=== PATIENT | female | born 1970 | race Caucasian/White ===

== ENCOUNTER 2017-09-06 09:34 | Emergency (ER) | payer BC ==
[~2017-09-06] VITALS: Ht 157.5 cm; Wt 75.0 kg
[~2017-09-06 09:34] MED LIST: BISOPROLOL/HCTZ PO; DTRSR2 PO; ESCI10TA17 PO; LANS15CA6 PO; SYN25 PO
[2017-09-06 09:53] VITALS: O2SAT 95; Ht 157.5 cm; Wt 75.0 kg
[2017-09-06] MEDS ORDERED: SODIUM CHLORIDE 0.9% 1000ML 500 ML IV STA (10:34)
[2017-09-06] MEDS ORDERED: ZC25 PO (10:37)
[2017-09-06] MEDS ORDERED: ASPI81TA28 PO (10:37)
[2017-09-06] MEDS ORDERED: DTRSR/2 PO (10:37)
[2017-09-06] MEDS ORDERED: LEVO25TA5 PO (10:37)
--- NOTE | 2017-09-06 11:07 | DIAGNOSTIC IMAGING REPORT ---
CHEST ONE VIEW PORTABLE CLINICAL HISTORY: 47 years-old Female presenting with CHEST PAIN. TECHNIQUE: Portable upright AP view of the chest was obtained. COMPARISON: 08/19/2011. FINDINGS: Atherosclerosis of aortic arch. Cardiac silhouette enlarged, slightly increased from prior. Enlargement of the main pulmonary artery, unchanged. Mild prominence of pulmonary vasculature, slightly increased from prior. Lungs and pleural spaces clear. Osseous structures normal. Upper abdomen normal. IMPRESSION: 1. Apparent mild cardiomegaly, although this could be due to portable AP technique. 2. Prominence of the main pulmonary artery could suggest elevated pulmonary arterial pressures. This appearance is not significant changed from prior exam. 3. No focal infiltrate or pulmonary edema. Electronically signed by: Amando Mcclendon M.D. 09/06/2017 11:06 AM Dictated Date/Time: 09/06/2017 11:05 AM
--- NOTE | 2017-09-06 11:24 | EMERGENCY ROOM VISIT NOTE ---
History Report prepared by Fletcher: Chelo Morataya Under the Supervision of: Dr. Glynn Escalante M.D. First contact with patient: 10:26 Chief Complaint: CARDIAC ASSESSMENT Stated Complaint: ALMOST PAST OUT, DIZZY, HEART POUNDING Nursing Triage Summary: pt ambulatroy to room a09b. 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 pt reports today while at work she had sudden onset of dizziness and felt like she was going to pass out and fast heart rate. denies any loc. pt reports at present continued dizziness that has improved and "i just don't feel right." History of Present Illness The patient is a 47 year old female who presents to the Emergency Room for a cardiac assessment. She has a past history of rheumatic heart disease and follows with Dr. Caicedo of cardiology. This morning the patient woke up and was feeling well. She went to work at [employer] and suddenly began to feel lightheaded and dizzy. She felt like she was going to pass out but denies any LOC. Her heart was pounding but she cannot remember if it felt regular or irregular. She sat down and her symptoms improved. 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 The patient states that she is feeling better now, but still feels a little dizzy and "off." She denies chest pain, shortness of breath, nausea, vomiting, and diarrhea. She denies any recent changes to her medications. She also denies chance of . 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 A total of 10 systems reviewed and were otherwise negative. Past Medical & Surgical Medical Problems: (1) Menorrhagia (2) Rheumatic heart disease Family History No pertinent history stated. Social History Smoking Status: Current Every Day Smoker Housing Status: lives with family Occupation Status: employed Current/Historical Medications Scheduled Aspirin (Aspirin Ec), 81 MG PO DAILY Bisoprolol Fumarate (Bisoprolol Fumarate/Sherman 2.5-6.25 mg), 1 TAB PO DAILY Escitalopram (Lexapro), 20 MG PO DAILY Lansoprazole (Prevacid), 30 MG PO DAILY Levothyroxine Sodium (Levothyroxine Sodium), 1 TAB PO DAILY Tolterodine Tartrate (Detrol LA), 1 CAP PO DAILY Allergies Coded Allergies: No Known Allergies (Unverified , 09/06/17) Physical Exam Vital Signs Date Time Temp Pulse Resp B/P (MAP) Pulse Ox O2 Delivery O2 Flow Rate FiO2 09/06/17 10:57 87 18 129/91 95 Room Air 09/06/17 09:58 97 09/06/17 09:53 37.1 95 18 158/99 99 Room Air 09/06/17 09:53 95 Room Air Physical Exam GENERAL: Patient is in no acute distress. HEENT: No acute trauma, normocephalic atraumatic, mucous membranes moist, no nasal congestion, no scleral icterus. NECK: No stridor, no adenopathy, no meningismus, trachea is midline. LUNGS: Clear to auscultation bilaterally, no wheeze, no rhonchi, breath sounds equal. HEART: Without murmurs gallops or rubs, regular rate and rhythm. ABDOMEN: Soft, nontender, bowel sounds positive, no hernias, no peritonitis. EXTREMITIES: No cyanosis or edema, full range of motion of all the joints without pain or difficulty, no signs for acute trauma. NEUROLOGIC: Oriented x 3, no acute motor or sensory deficits, no focal weakness. SKIN: No rash, no jaundice, no diaphoresis. Medical Decision & Procedures ER Provider Diagnostic Interpretation: Radiology results as stated below per my review and radiologist interpretation: CHEST ONE VIEW PORTABLE CLINICAL HISTORY: 47 years-old Female presenting with CHEST PAIN. TECHNIQUE: Portable upright AP view of the chest was obtained. COMPARISON: 08/19/2011. FINDINGS: Atherosclerosis of aortic arch. Cardiac silhouette enlarged, slightly increased from prior. Enlargement of the main pulmonary artery, unchanged. Mild prominence of pulmonary vasculature, slightly increased from prior. Lungs and pleural spaces clear. Osseous structures normal. Upper abdomen normal. IMPRESSION: 1. Apparent mild cardiomegaly, although this could be due to portable AP technique. 2. Prominence of the main pulmonary artery could suggest elevated pulmonary arterial pressures. This appearance is not significant changed from prior exam. 3. No focal infiltrate or pulmonary edema. Electronically signed by: Amando Mcclendon M.D. 09/06/2017 11:06 AM Dictated Date/Time: 09/06/2017 11:05 AM Laboratory Results 09/06/17 11:09 09/06/17 11:09 Test 09/06/17 11:09 09/06/17 11:14 Red Blood Count 4.37 M/uL (4.2-5.4) Mean Corpuscular Volume 94.7 fL (80-100) Mean Corpuscular Hemoglobin 32.3 pg (25-34) Mean Corpuscular Hemoglobin Concent 34.1 g/dl (32-36) RDW Standard Deviation 47.1 fL (36.4-46.3) RDW Coefficient of Variation 13.7 % (11.5-14.5) Mean Platelet Volume 9.0 fL (7.4-10.4) Anion Gap 4.0 mmol/L (3-11) Est Creatinine Clear Calc Drug Dose 105.2 ml/min Estimated GFR () 123.6 Estimated GFR (Non- 106.6 BUN/Creatinine Ratio 16.8 (10-20) Calcium Level 9.3 mg/dl (8.5-10.1) Magnesium Level 2.3 mg/dl (1.8-2.4) Total Bilirubin 0.3 mg/dl (0.2-1) Aspartate Amino Transf (AST/SGOT) 21 U/L (15-37) Alanine Aminotransferase (ALT/SGPT) 19 U/L (12-78) Alkaline Phosphatase 48 U/L (45-117) Total Protein 7.9 gm/dl (6.4-8.2) Albumin 4.0 gm/dl (3.4-5.0) Globulin 3.9 gm/dl (2.5-4.0) Albumin/Globulin Ratio 1.0 (0.9-2) Thyroid Stimulating Hormone (TSH) 2.830 uIu/ml (0.300-4.500) Human Chorionic Gonadotropin, Qual NEG (NEG) Bedside Troponin I < 0.030 ng/ml (0-0.045) Laboratory results reviewed by me. Medications Administered Medications (Trade) Dose Ordered Sig/Thad Route Start Time Stop Time Status Last Admin Dose Admin Sodium Chloride 500 ml @ 999 mls/hr Q31M STAT IV 09/06/17 10:34 09/06/17 11:04 DC 09/06/17 10:58 999 MLS/HR ECG Indication: palpitations Rate (beats per minute): 93 Rhythm: normal sinus Findings: no acute ischemic change, no ectopy, other (old anterior septal infarct) ED Course 1026: The patient was evaluated in room A9B. A complete history and physical exam was performed. 1034: NSS 500 ml @ 999 mls/hr IV 1145: I spoke with Dr. Jordan of cardiology. We discussed the patient's case. He recommended discharge and outpatient follow-up. 1247: I reassessed the patient at this time. She is feeling better and resting comfortably. I discussed the results and treatment plan with the patient. I answered all pertaining questions that she had. She expressed understanding and verbalized agreement. The patient will be discharged home. Medical Decision Differential diagnoses includes dysrhythmia, viral illness, UTI, electrolyte imbalance, anemia, IN. There is no leukocytosis or concerning anemia. No significant electrolyte abnormality, kidney failure or hepatitis. The patient appears to be in a euthyroid state. EKG shows a normal sinus rhythm with some old changes, no acute ischemic change, no dysrhythmia. Cardiac enzyme testing 1 is not consistent with acute cardiac injury. Chest film does not show mediastinal widening, pneumonia or pneumothorax, a mild cardiomegaly was seen. The patient received IV saline, she has done well, no dysrhythmias noted on the monitor. I did speak with cardiology. The patient is being discharged with outpatient follow-up and possibly Holter monitor testing. She can return here for worsening symptoms. She was reassured. The cause for the presentation is not clear. Medication Reconcilliation Current Medication List: was personally reviewed by me Blood Pressure Screening Patient's blood pressure: Elevated blood pressure Blood pressure disposition: Elevated BP felt to be situational Consults Time Called: 1141 Consulting Physician: Dr. Jordan Returned Call: [address] Jordan of cardiology. We discussed the patient's case. He recommended discharge and outpatient follow-up. Impression Primary Impression: Near syncope Scribe Attestation The scribe's documentation has been prepared under my direction and personally reviewed by me in its entirety. I confirm that the note above accurately reflects all work, treatment, procedures, and medical decision making performed by me. Departure Information Dispostion Home / Self-Care Referrals Johanna Cardoza D.O. (PCP) Forms IMPORTANT VISIT INFORMATION Patient Instructions My [facility] Additional Instructions follow with cardiology--call for an appt rest and stay hydrated testing today was all ok return if worsening
[2017-09-06 11:36] LABS: HEMATOCRIT 41.4 % (37-47); MEAN CELL VOLUME 94.7 fL (80-100); MEAN CORPUSCULAR HEMOGLOBIN 32.3 pg (25-34); MEAN CORPUSCULAR HGB CONC 34.1 g/dl (32-36); PLATELET COUNT 247 K/uL (130-400); RED BLOOD COUNT 4.37 M/uL (4.2-5.4); WHITE BLOOD COUNT 7.26 K/uL (4.8-10.8)
[2017-09-06 11:59] LABS: PREG INTERNAL NEGATIVE QC NEG CLEAR BACKGROUND; PREG INTERNAL POSITIVE QC POS CONTROL LINE
[2017-09-06 12:18] LABS: BUN/CREATININE RATIO 16.8 (10-20); CALCIUM 9.3 mg/dl (8.5-10.1); CREATININE 0.62 mg/dl (0.60-1.20); MAGNESIUM 2.3 mg/dl (1.8-2.4)
[2017-09-06 12:28] LABS: THYROID STIMULATING HORMONE 2.83 uIu/ml (0.300-4.500)
[2017-09-06 13:46] VITALS: BP 139/83; PULSE 80; TEMP 37.1; O2SAT 97
== END 2017-09-06 13:47 | disposition home or self-care (01) ==
LOC: C.EDB 09:36 → C.EDA 13:47
DX: R55 Syncope and collapse (principal); I09.9 Rheumatic heart disease, unspecified; F17.210 Nicotine dependence, cigarettes, uncomplicated; Z79.82 Long term (current) use of aspirin; Z79.899 Other long term (current) drug therapy

== ENCOUNTER 2017-12-16 19:42 | Inpatient (IN) | payer BC ==
[~2017-12-16] VITALS: Ht 157.5 cm; Wt 81.0 kg
[~2017-12-16 19:42] MED LIST changes: +ASPI81TA28 PO; -BISOPROLOL/HCTZ PO; +DTRSR/2 PO; -DTRSR2 PO; +LEVO25TA5 PO; -SYN25 PO; +ZC25 PO
[2017-12-16 21:07] LABS: BASO % 0.3 %; BASO ABS # 0.04 K/uL (0-0.2); EOS % 0.9 %; EOS ABS # 0.12 K/uL (0-0.5); HEMATOCRIT 42.2 % (37-47); IG# 0.04 K/uL (0.00-0.02); LYMPH % 21.9 %; LYMPH ABS # 2.87 K/uL (1.2-3.4); MEAN CELL VOLUME 96.6 fL (80-100); MEAN CORPUSCULAR HGB CONC 33.2 g/dl (32-36); MEAN PLATELET VOLUME 9.3 fL (7.4-10.4); MONO % 8.3 %; MONO ABS # 1.08 K/uL (0.11-0.59); NEUT % 68.3 %; NEUT ABS # 8.93 K/uL (1.4-6.5); PLATELET COUNT 265 K/uL (130-400); RED CELL DISTRIBUTION WIDTH CV 14.4 % (11.5-14.5); RED CELL DISTRIBUTION WIDTH SD 50.9 fL (36.4-46.3); WHITE BLOOD COUNT 13.08 K/uL (4.8-10.8)
[2017-12-16 21:26] LABS: ALBUMIN 3.4 gm/dl (3.4-5.0); CALCIUM 8.6 mg/dl (8.5-10.1); CREATININE 0.72 mg/dl (0.60-1.20)
[2017-12-16 21:29] LABS: TOTAL PROTEIN 6.8 gm/dl (6.4-8.2)
[2017-12-16] MEDS ORDERED: ACETAMINOPHEN 500 MG TAB PO STA (21:42)
--- NOTE | 2017-12-16 21:54 | DIAGNOSTIC IMAGING REPORT ---
ULTRASOUND RIGHT UPPER QUADRANT ABDOMEN CLINICAL HISTORY: Right upper quadrant abdominal pain. COMPARISON STUDY: No priors. TECHNIQUE: Real-time, grayscale, and color flow sonography of the right upper quadrant of the abdomen was performed. Images are reviewed in the transverse and longitudinal planes. FINDINGS: Liver: The liver is mildly enlarged measuring 18.6 cm in length. Hepatic echotexture is slightly heterogeneous. There is no intrahepatic biliary ductal dilatation. The main portal vein is patent. Gallbladder: The gallbladder wall is thickened and edematous, measuring up to 7 mm. No shadowing gallstones are identified. No pericholecystic fluid is seen. A sonographic Neff's sign is reportedly present. The common bile duct measures up to 0.4 cm in diameter. Pancreas: Visualized portions of the pancreatic head and body are normal in appearance. Right kidney: Survey images of the right kidney demonstrate normal size and echotexture. There is no hydronephrosis. Ascites: None. IMPRESSION: 1. The gallbladder wall is markedly thickened and edematous. A sonographic Neff's sign is reportedly present. No shadowing gallstones are identified. The appearance is concerning for acalculus cholecystitis. Surgical consultation is advised. If further assessment is desired a nuclear hepatobiliary scan would be appropriate. 2. There is no intra or extrahepatic biliary ductal dilatation. 3. Mild hepatomegaly. Electronically signed by: Glynn Feliz M.D. 12/16/2017 9:53 PM Dictated Date/Time: 12/16/2017 9:50 PM
[2017-12-16] MEDS ORDERED: ONDANSETRON INJ 2 MG/ML 2 ML VIAL IV STA (21:57)
[2017-12-16] MEDS ORDERED: MoRPHine SULFATE 4 MG/ML 1 ML CARP\\VIAL IV STA (21:57)
[2017-12-16] MEDS ORDERED: PIPERACILLIN/TAZOBACTAM 3.375 GM/100ML D5W IV STA (21:57)
[2017-12-16] MEDS ORDERED: ONDANSETRON INJ 2 MG/ML 2 ML VIAL IV PRN (23:15)
[2017-12-16] MEDS ORDERED: HYDROCODONE/ACETAMOPHEN 5/325MG TAB PO PRN ×2 (23:15)
[2017-12-16] MEDS ORDERED: HYDROmorphone INJ 0.5 MG/0.5 ML SYR IV PRN (23:15)
[2017-12-16] MEDS ORDERED: ACETAMINOPHEN 325 MG TAB PO PRN (23:15)
[2017-12-16] MEDS ORDERED: HYDROmorphone INJ 1 MG/ML SYR IV PRN (23:15)
--- NOTE | 2017-12-16 23:25 | Medical Consult ---
Consultation Date of Consultation: Dec 16, 2017. Attending Physician: Reason for Consultation: acalculus cholecystitis History of Present Illness patient is a 47F who presents to the ED with RUQ pain associated with meals that began on Monday. States her pain has gotten progressively worse since onset and she finally decided to come to the ED tonight. States it typically comes on after she eats fatty foods. Reports she had [employer] today around 3pm and developed more severe symptoms 1-2 hours after that meal. Denies symptoms like this in the past. Denies FHx of gallbladder disease. Denies any vomiting but states she has felt mildly nauseous periodically since the onset of her pain. Denies fever/chills/recent illness. Reports decrease urination but states she has not been drinking a whole lot since she started having pain. Denies any urinary symptoms. Her last BM was this morning. She denies any trouble moving her bowels. Denies any abdominal surgeries in the past. She does normally take aspirin 81mg daily but has not taken it in the past few days due to her symptoms. Denies use of any other blood thinning or anticoagulant medications. PMHx significant for rheumatic heart disease. She follows regularly with Dr. Pastrana in cardiology and reports she last saw him in June. WBC 13.08. AST mildly elevated at 43. No N/V at this time. Still in some pain but greatly improved since receiving morphine in the ED. RUQ U/S revealed gallbladder wall is markedly thickened and edematous. A sonographic Neff's sign is reportedly present. No shadowing gallstones are identified. The appearance is concerning for acalculus cholecystitis. Past Medical/Surgical History Medical Problems: (1) Near syncope Status: Acute Social History Smoking Status: Current Every Day Smoker Housing Status: lives with family Occupation Status: employed Allergies Coded Allergies: Kiwi (Verified Allergy, Severe, TONGUE SWELLS, 12/16/17) Review of Systems Denies problems with anesthesia in the past. Constitutional: No fever, No chills Cardiovascular: No chest pain Abdomen: + pain (RUQ), + nausea (Mild, intermittent), No vomiting, No diarrhea , No constipation Genitourinary - Female: No dysuria Hematologic / Lymphatic: No abnormal bleeding/bruising, No clotting problems Physical Exam Date Time Temp Pulse Resp B/P (MAP) Pulse Ox O2 Delivery O2 Flow Rate FiO2 1/20/18 22:05 113 20 146/94 96 Room Air 12/16/17 19:44 36.6 116 20 138/90 98 Room Air General Appearance: WD/WN, no apparent distress Head: normocephalic, atraumatic Respiratory/Chest: normal breath sounds, no respiratory distress, no accessory muscle use Cardiovascular: regular rate, rhythm Abdomen/GI: normal bowel sounds, soft, no organomegaly, no pulsatile mass, + tenderness (RUQ) Neurologic/Psych: alert, normal mood/affect, oriented x 3 Skin: normal color, warm/dry Laboratory Results Last 24 Hours Test 12/16/17 20:30 12/16/17 20:45 Urine Color DK YELLOW Urine Appearance CLOUDY Urine pH 5.0 Urine Specific Nicholls 1.029 Urine Protein 1+ Urine Glucose (UA) NEG Urine Ketones TRACE Urine Occult Blood NEG Urine Nitrite NEG Urine Bilirubin NEG Urine Urobilinogen NEG Urine Leukocyte Esterase NEG Urine WBC (Auto) 1-5 /hpf Urine RBC (Auto) 0-4 /hpf Urine Hyaline Casts (Auto) 1-5 /lpf Urine Epithelial Cells (Auto) >30 /lpf Urine Bacteria (Auto) NEG Urine Test NEG White Blood Count 13.08 K/uL Red Blood Count 4.37 M/uL Hemoglobin 14.0 g/dL Hematocrit 42.2 % Mean Corpuscular Volume 96.6 fL Mean Corpuscular Hemoglobin 32.0 pg Mean Corpuscular Hemoglobin Concent 33.2 g/dl Platelet Count 265 K/uL Mean Platelet Volume 9.3 fL Neutrophils (%) (Auto) 68.3 % Lymphocytes (%) (Auto) 21.9 % Monocytes (%) (Auto) 8.3 % Eosinophils (%) (Auto) 0.9 % Basophils (%) (Auto) 0.3 % Neutrophils # (Auto) 8.93 K/uL Lymphocytes # (Auto) 2.87 K/uL Monocytes # (Auto) 1.08 K/uL Eosinophils # (Auto) 0.12 K/uL Basophils # (Auto) 0.04 K/uL RDW Standard Deviation 50.9 fL RDW Coefficient of Variation 14.4 % Immature Granulocyte % (Auto) 0.3 % Immature Granulocyte # (Auto) 0.04 K/uL Sodium Level 139 mmol/L Potassium Level 4.0 mmol/L Chloride Level 105 mmol/L Carbon Dioxide Level 21 mmol/L Anion Gap 13.0 mmol/L Blood Urea Nitrogen 15 mg/dl Creatinine 0.72 mg/dl Est Creatinine Clear Calc Drug Dose 93.3 ml/min Estimated GFR () 114.8 Estimated GFR (Non- 99.0 BUN/Creatinine Ratio 21.0 Random Glucose 109 mg/dl Calcium Level 8.6 mg/dl Total Bilirubin 0.6 mg/dl Direct Bilirubin 0.2 mg/dl Aspartate Amino Transf (AST/SGOT) 43 U/L Alanine Aminotransferase (ALT/SGPT) 47 U/L Alkaline Phosphatase 54 U/L Total Protein 6.8 gm/dl Albumin 3.4 gm/dl Lipase 172 U/L Assessment & Plan RUQ pain, acalculous cholecystitis via U/S Based on symptoms and imaging, pain most likely gallbladder in etiology. Will plan for laparoscopic cholecystectomy, possible intraoperative cholangiogram, possible open with Dr. Guerrero tomorrow. Risks, benefits and alternatives were discussed with the patient - all questions were answered. Admit Med/Surg, NPO after midnight, IV Fluids, IV Cefoxitin 2g q6h, IV pain medication PRN, IV Zofran for nausea, SCDs. Will consult cardiology for a pre-op clearance due to her history of rheumatic heart disease. OR notified. Findings discussed with Dr. Guerrero. Please contact with questions or concerns.
[2017-12-16 23:39] VITALS: Ht 157.5 cm; Wt 81.0 kg
[2017-12-17] VITALS (11 sets, daily range): BP systolic 109–142; BP diastolic 65–93; PULSE 79–104; TEMP 36.5–36.9; O2SAT 93–99
--- NOTE | 2017-12-17 00:50 | EMERGENCY ROOM VISIT NOTE ---
History Report prepared by Fletcher: Adryan Norman Under the Supervision of: Dr. Derrick Nava D.O. First contact with patient: 20:23 Chief Complaint: ABDOMINAL PAIN Stated Complaint: PAIN IN UPPER R ABDOMEN Nursing Triage Summary: pt reports 3 day hx of RUQ pain that radiates to back , denies urinary sx , reports nausea History of Present Illness The patient is a 47 year old female who presents to the Emergency Room with complaints of constant RUQ abdominal pain for two days. She states that she ate a cheeseburger and fries two days ago and the abdominal pain began two hours later. She notes the pain has not subsided and worsens when she eats or drinks. She currently rates her pain a 9/10 in severity. She also notes pain with breathing at her lower ribs. Her last bowel movement was normal. She notes a history of Hodgkin's disease when she was 26 years old. She notes rheumatic heart disease. She denies any history of HI. She denies any history of abdominal surgeries. She currently smokes. Patient denies diabetes, hypertension , hyperlipidemia, CAD, and family history of sudden at a young age. Patient denies swelling of calves, recent trips, history of immobilization or recent surgery, prior history of DVT, hemoptysis, or control/estrogen use. Pt denies fevers, cough, runny nose, chest pain, nausea, vomiting, diarrhea, pain with urination, and melena. Source of History: patient Onset: two days Position: abdomen (RUQ) Symptom Intensity: 9/10 Timing: constant Modifying Factors (Worsening): eating, drinking Associated Symptoms: No fevers, No cough, No chest pain, No nausea, No vomiting, No diarrhea, No urinary symptoms (pain with urination) Note: She notes RUQ abdominal pain. She notes pain with breathing along rib line. She denies runny nose. Review of Systems See HPI for pertinent positives & negatives. A total of 10 systems reviewed and were otherwise negative. Past Medical & Surgical Medical Problems: (1) Acalculous cholecystitis (2) Menorrhagia (3) Rheumatic heart disease Family History No pertinent family history Social History Smoking Status: Current Every Day Smoker Smokeless Tobacco Use: No Drug Use: none Housing Status: lives with family Occupation Status: employed Current/Historical Medications Scheduled Aspirin (Aspirin Ec), 81 MG PO DAILY Bisoprolol Fumarate (Bisoprolol Fumarate/[place] 2.5-6.25 mg), 1 TAB PO DAILY Escitalopram (Lexapro), 20 MG PO DAILY Lansoprazole (Prevacid), 30 MG PO DAILY Levothyroxine Sodium (Levothyroxine Sodium), 25 MCG PO DAILY Tolterodine Tartrate (Detrol LA), 2 MG PO DAILY Allergies Coded Allergies: Kiwi (Verified Allergy, Severe, TONGUE SWELLS, 12/16/17) Physical Exam Vital Signs Date Time Temp Pulse Resp B/P (MAP) Pulse Ox O2 Delivery O2 Flow Rate FiO2 12/16/17 23:15 105 95 12/16/17 23:14 139/90 12/16/17 22:05 113 20 146/94 96 Room Air 12/16/17 19:44 36.6 116 20 138/90 98 Room Air Physical Exam GENERAL: Sitting up in bed, alert, well appearing, well nourished, no distress, non-toxic EYE EXAM: normal conjunctiva. OROPHARYNX: no exudate, no erythema, lips, buccal mucosa, and tongue normal and mucous membranes are moist NECK: supple, no nuchal rigidity, no adenopathy, non-tender LUNGS: Clear to auscultation. Normal chest wall mechanics HEART: no murmurs, S1 normal and S2 normal ABDOMEN: abdomen soft, tenderness in RUQ, normo-active bowel sounds, no masses, no rebound or guarding. BACK: Back is symmetrical on inspection and there is no deformity, no midline tenderness, no CVA tenderness. SKIN: no rashes and no bruising UPPER EXTREMITIES: upper extremities are grossly normal. LOWER EXTREMITIES: No pitting edema. NEURO EXAM: Normal sensorium, cranial nerves II-XII grossly intact, normal speech, no gross weakness of arms, no gross weakness of legs. Medical Decision & Procedures ER Provider Diagnostic Interpretation: Radiology results as stated below per my review and the radiologist's interpretation: ULTRASOUND RIGHT UPPER QUADRANT ABDOMEN CLINICAL HISTORY: Right upper quadrant abdominal pain. COMPARISON STUDY: No priors. TECHNIQUE: Real-time, grayscale, and color flow sonography of the right upper quadrant of the abdomen was performed. Images are reviewed in the transverse and longitudinal planes. FINDINGS: Liver: The liver is mildly enlarged measuring 18.6 cm in length. Hepatic echotexture is slightly heterogeneous. There is no intrahepatic biliary ductal dilatation. The main portal vein is patent. Gallbladder: The gallbladder wall is thickened and edematous, measuring up to 7 mm. No shadowing gallstones are identified. No pericholecystic fluid is seen. A sonographic Neff's sign is reportedly present. The common bile duct measures up to 0.4 cm in diameter. Pancreas: Visualized portions of the pancreatic head and body are normal in appearance. Right kidney: Survey images of the right kidney demonstrate normal size and echotexture. There is no hydronephrosis. Ascites: None. IMPRESSION: 1. The gallbladder wall is markedly thickened and edematous. A sonographic Neff's sign is reportedly present. No shadowing gallstones are identified. The appearance is concerning for acalculus cholecystitis. Surgical consultation is advised. If further assessment is desired a nuclear hepatobiliary scan would be appropriate. 2. There is no intra or extrahepatic biliary ductal dilatation. 3. Mild hepatomegaly. Electronically signed by: Glynn Feliz M.D. 12/16/2017 9:53 PM Dictated Date/Time: 12/16/2017 9:50 PM Laboratory Results 12/16/17 20:45 Red Blood Count 4.37, Mean Corpuscular Volume 96.6, Mean Corpuscular Hemoglobin 32.0, Mean Corpuscular Hemoglobin Concent 33.2, Mean Platelet Volume 9.3, Neutrophils (%) (Auto) 68.3, Lymphocytes (%) (Auto) 21.9, Monocytes (%) (Auto) 8.3, Eosinophils (%) (Auto) 0.9, Basophils (%) (Auto) 0.3, Neutrophils # (Auto) 8.93, Lymphocytes # (Auto) 2.87, Monocytes # (Auto) 1.08, Eosinophils # (Auto) 0.12, Basophils # (Auto) 0.04 12/16/17 20:45 Test 12/16/17 20:30 12/16/17 20:45 Urine Color DK YELLOW Urine Appearance CLOUDY (CLEAR) Urine pH 5.0 (4.5-7.5) Urine Specific Butler 1.029 (1.000-1.030) Urine Protein 1+ (NEG) Urine Glucose (UA) NEG (NEG) Urine Ketones TRACE (NEG) Urine Occult Blood NEG (NEG) Urine Nitrite NEG (NEG) Urine Bilirubin NEG (NEG) Urine Urobilinogen NEG (NEG) Urine Leukocyte Esterase NEG (NEG) Urine WBC (Auto) 1-5 /hpf (0-5) Urine RBC (Auto) 0-4 /hpf (0-4) Urine Hyaline Casts (Auto) 1-5 /lpf (0-5) Urine Epithelial Cells (Auto) >30 /lpf (0-5) Urine Bacteria (Auto) NEG (NEG) Urine Test NEG (NEG) White Blood Count 13.08 K/uL (4.8-10.8) Red Blood Count 4.37 M/uL (4.2-5.4) Hemoglobin 14.0 g/dL (12.0-16.0) Hematocrit 42.2 % (37-47) Mean Corpuscular Volume 96.6 fL (80-100) Mean Corpuscular Hemoglobin 32.0 pg (25-34) Mean Corpuscular Hemoglobin Concent 33.2 g/dl (32-36) Platelet Count 265 K/uL (130-400) Mean Platelet Volume 9.3 fL (7.4-10.4) Neutrophils (%) (Auto) 68.3 % Lymphocytes (%) (Auto) 21.9 % Monocytes (%) (Auto) 8.3 % Eosinophils (%) (Auto) 0.9 % Basophils (%) (Auto) 0.3 % Neutrophils # (Auto) 8.93 K/uL (1.4-6.5) Lymphocytes # (Auto) 2.87 K/uL (1.2-3.4) Monocytes # (Auto) 1.08 K/uL (0.11-0.59) Eosinophils # (Auto) 0.12 K/uL (0-0.5) Basophils # (Auto) 0.04 K/uL (0-0.2) RDW Standard Deviation 50.9 fL (36.4-46.3) RDW Coefficient of Variation 14.4 % (11.5-14.5) Immature Granulocyte % (Auto) 0.3 % Immature Granulocyte # (Auto) 0.04 K/uL (0.00-0.02) Anion Gap 13.0 mmol/L (3-11) Est Creatinine Clear Calc Drug Dose 93.3 ml/min Estimated GFR () 114.8 Estimated GFR (Non- 99.0 BUN/Creatinine Ratio 21.0 (10-20) Calcium Level 8.6 mg/dl (8.5-10.1) Total Bilirubin 0.6 mg/dl (0.2-1) Direct Bilirubin 0.2 mg/dl (0-0.2) Aspartate Amino Transf (AST/SGOT) 43 U/L (15-37) Alanine Aminotransferase (ALT/SGPT) 47 U/L (12-78) Alkaline Phosphatase 54 U/L (45-117) Total Protein 6.8 gm/dl (6.4-8.2) Albumin 3.4 gm/dl (3.4-5.0) Lipase 172 U/L (73-393) Laboratory results per my review. Medications Administered Medications (Trade) Dose Ordered Sig/Thad Route Start Time Stop Time Status Last Admin Dose Admin Acetaminophen (Tylenol Tab) 1,000 mg NOW STAT PO 12/16/17 21:42 12/16/17 21:44 DC 12/16/17 22:12 1,000 MG Morphine Sulfate (MoRPHine SULFATE INJ) 4 mg NOW STAT IV 12/16/17 21:57 12/16/17 21:59 DC 12/16/17 23:11 4 MG Ondansetron HCl (Zofran Inj) 4 mg NOW STAT IV 12/16/17 21:57 12/16/17 21:59 DC 12/16/17 23:07 4 MG Piperacillin Sod/ Tazobactam Sod (Zosyn Iv) 3.375 gm NOW STAT IV 12/16/17 21:57 12/16/17 21:59 DC 12/16/17 23:44 3.375 GM ED Course ED COURSE: Vital signs were reviewed and showed tachycardic and hypertensive. The patients medical record was reviewed The above diagnostic studies were performed and reviewed. ED treatments and interventions as stated above. 2023: The patient was evaluated in room B9. A complete history and physical examination was performed. 2129: I reassessed the patient at this time. She is resting. 2141: Ordered Tylenol 1,000 mg PO 2156: Ordered Zosyn 3.375 gm IV, Zofran 4 mg IV, and Morphine Sulfate 4 mg IV 0: Upon reevaluation, I discussed my findings with the patient and she understands and agrees with the treatment plan. Based on the patients age, coexisting illnesses, exam and lab findings the decision to treat as an inpatient was made. The patient remained stable while under my care. The patient will be evaluated for further management. 2205: I spoke with Sudarshan Gustafson PA-C. We discussed the patients case. The patient will be evaluated by the [facility] for further management. Medical Decision Differential diagnoses includes but is not limited to gastritis, peptic ulcer disease, GERD, gallbladder disease, pancreatitis, small bowel obstruction, acute coronary syndrome, pericarditis, ischemic bowel, irritable bowel disease, irritable bowel syndrome, appendicitis, diverticulitis, malignancy, hernia, urinary tract infection, torsion, /ectopic , perforation, trauma, infectious. Patient is a 39-year-old female who presents to ER for right upper quadrant abdominal pain that has been present and worsening for the past 3 days. Worsens with eating and drinking. Labs show a mild leukocytosis of 13,000. BMP along with LFTs, bilirubin lipase is unremarkable. UA was negative. was negative. Ultrasound of the gallbladder shows an edematous gallbladder and possible acalculous cholecystitis. Patient was given IV antibiotics, narcotics admits internal medicine for cholecystitis. Medication Reconcilliation Current Medication List: was personally reviewed by me Blood Pressure Screening Patient's blood pressure: Elevated blood pressure Blood pressure disposition: Elevated BP felt to be situational Consults Time Called: 2201 Consulting Physician: Sudarshan Gustafson PA-C Returned Call: 2205 I spoke with Sudarshan Gustafson PA-C. We discussed the patients case. The patient will be evaluated by the [facility] for further management. Impression Primary Impression: Acute cholecystitis Scribe Attestation The scribe's documentation has been prepared under my direction and personally reviewed by me in its entirety. I confirm that the note above accurately reflects all work, treatment, procedures, and medical decision making performed by me. Departure Information Dispostion Being Evaluated By Hospitalist Referrals Johanna Cardoza D.O. (PCP) Patient Instructions [facility]
[2017-12-17] MEDS ORDERED: SODIUM CHLORIDE 0.9% 1000ML 1,000 ML IV SCH (01:30)
[2017-12-17] MEDS: CEFOXITIN IV 2,000 MG in DEXTROSE 5% 50ML 50 ML IV SCH ×4 (01:48→20:28)
[2017-12-17 06:01] LABS: HEMATOCRIT 39.4 % (37-47); HEMOGLOBIN 12.5 g/dL (12.0-16.0); MEAN CELL VOLUME 98.5 fL (80-100); MEAN CORPUSCULAR HEMOGLOBIN 31.3 pg (25-34); MEAN CORPUSCULAR HGB CONC 31.7 g/dl (32-36); MEAN PLATELET VOLUME 8.9 fL (7.4-10.4); PLATELET COUNT 227 K/uL (130-400); RED CELL DISTRIBUTION WIDTH CV 14.6 % (11.5-14.5); RED CELL DISTRIBUTION WIDTH SD 52.7 fL (36.4-46.3); WHITE BLOOD COUNT 10.09 K/uL (4.8-10.8)
[2017-12-17 06:36] LABS: CALCIUM 8.1 mg/dl (8.5-10.1); CREATININE 1.07 mg/dl (0.60-1.20); POTASSIUM 4.4 mmol/L (3.5-5.1)
[2017-12-17] MEDS ORDERED: BUPIVACAINE/EPINEPHRINE 0.5% MPF 1:200,000 30 ML VIAL ONE (07:14)
--- NOTE | 2017-12-17 08:21 | History & Physical Bridge Note ---
H&P Re-Evaluation Bridge Note: I have examined the patient, reviewed the History & Physical and in the interval since the performance of the History & Physical I have noted the following changes of clinical significance: No changes noted
[2017-12-17] MEDS ORDERED: PROPOFOL IV EMULSION 10 MG/ML 20 ML VIAL IV ONE (08:27)
[2017-12-17] MEDS ORDERED: MIDAZOLAM HCL 1 MG/ML 2ML VIAL ONE (08:27)
[2017-12-17] MEDS ORDERED: FENTANYL CITRATE INJ 50 MCG/1 ML 2 ML VIAL ONE (08:27)
[2017-12-17] MEDS ORDERED: ONDANSETRON INJ 2 MG/ML 2 ML VIAL ONE (09:05)
[2017-12-17] MEDS ORDERED: LIDOCAINE HCL 2% 2 ML VIAL (20MG/ML) ONE (09:05)
[2017-12-17] MEDS ORDERED: EpHEDrine SULFATE 50MG/5ML SYR ONE (09:05)
[2017-12-17] MEDS ORDERED: GLYCOPYRROLATE INJ 0.2 MG/ML VIAL ONE (09:05)
[2017-12-17] MEDS ORDERED: NEOSTIGMINE METHYLSULFATE 5 MG/5 ML SYR ONE (09:05)
[2017-12-17] MEDS ORDERED: CEFOXITIN SOD 1 GM VIAL ONE (09:05)
[2017-12-17] MEDS ORDERED: DEXAMETHASONE SOD INJ 4 MG/ML VIAL ONE (09:05)
[2017-12-17] MEDS ORDERED: ROCURONIUM BROMIDE 10 MG/ML 5 ML VIAL IV ONE (09:05)
[2017-12-17] MEDS ORDERED: ESMOLOL HCL 10 MG/ML 10 ML VIAL ONE (09:24)
--- NOTE | 2017-12-17 09:26 | [facility] Post Operative Brief Note ---
Immediate Operative Summary Operative Date Dec 17, 2017. Pre-Operative Diagnosis Acute Cholecystitis Post-Operative Diagnosis Same as preop Procedure(s) Performed Laparoscopic Cholecystectomy Surgeon Dr. Guerrero It Auditor Surgeon(s) Chasidy Craig PA-C Estimated Blood Loss 10 ML Findings Consistent with Post-Op Diagnosis Specimens A. Gall Bladder and Contents Anesthesia Type General Complication(s) none Disposition Disposition: Recovery Room / PACU
[2017-12-17] MEDS ORDERED: EpHEDrine SULFATE INJ 50 MG/ML AMP IV PRN (09:30)
[2017-12-17] MEDS ORDERED: MEPERIDINE HCL 25 MG/ML CARP IV PRN (09:30)
[2017-12-17] MEDS ORDERED: ONDANSETRON INJ 2 MG/ML 2 ML VIAL IV PRN ×2 (09:30→09:45)
[2017-12-17] MEDS ORDERED: HYDROmorphone INJ 1 MG/ML SYR IV PRN (09:30)
[2017-12-17] MEDS ORDERED: LABETALOL HCL IV 5 MG/ML 20ML IV PRN (09:30)
[2017-12-17] MEDS ORDERED: ATROPINE SULFATE 0.1 MG/ML 5ML SYR IV PRN (09:30)
--- NOTE | 2017-12-17 09:35 | [facility] Operative Report ---
Operative Report Operative Date Dec 17, 2017. Pre-Operative Diagnosis Acute Cholecystitis Post-Operative Diagnosis Same as preop; small hiatal hernia Procedure(s) Performed Laparoscopic Cholecystectomy Surgeon Dr. Guerrero Feed Grinder Surgeon(s) Chasidy Craig PA-C Estimated Blood Loss 10 ML Findings mildly inflammed gallbladder c/w preop dx Specimens A. Gall Bladder and Contents Anesthesia get Disposition Recovery Room / PACU Description of Procedure After informed consent was obtained the patient was taken the operating room and placed in the supine position. After successful intubation the abdomen was sterilely prepped and draped in usual fashion. A periumbilical incision was made with an 11 blade scalpel and carried down through the soft tissues electrocautery. The anterior rectus fascia was opened using electrocautery and 2 #0 Vicryl stay sutures were placed. Peritoneum was elevated with hemostats and incised under direct vision using a Metzenbaum scissor. A finger sweep was performed and a 12 mm Cruz trocar was placed. The abdomen was insufflated 18 mmHg. The laparoscope was inserted and the abdomen was examined 360. No gross abnormality was identified. A subxiphoid 5 mm port and 2 right upper quadrant 5 mm ports were all placed under direct vision. The patient was placed in a reverse Trendelenburg position and slightly airplaned to the left. The gallbladder was slightly thickened and distended. This made it very difficult to grab without rupturing it. We therefore used a gallbladder needle and drained about 30 mL of bile. We were then able to grab it and elevated it superiorly and laterally. I used a [place] dissector to take down adhesions around the neck of the gallbladder. There was an anterior vascular branch which I skeletonized clipped and divided. I was unable to get around behind the cystic duct which again I skeletonized clipped twice proximally once distally and transected. In similar fashion the cystic artery was identified skeletonized clipped and divided. The gallbladder was removed from the gallbladder fossa with electrocautery. It was removed intact and placed into an Endo Catch bag. Several small bleeding points on the gallbladder fossa were controlled using electrocautery. We thoroughly irrigated the right upper quadrant. At the end of the procedure there was adequate hemostasis and no evidence of any bile leak. We did look around the abdomen. There was a small hiatal hernia present but otherwise no gross abnormalities. The gallbladder and trochars were all removed and the abdomen was desufflated. The fascia of the camera port was closed using 0 Vicryl [id number] fashion. All the other wounds were irrigated and closed using 4-0 Monocryl. Marcaine was injected around them for postoperative analgesia and skin glue used as a dressing. The patient was awaken extubated and transferred recovery in stable condition. My physician's general surgery physician assistant was present throughout the entire case. She helped with retraction for trocar placement. She helped to retract the gallbladder throughout the case helped with wound closure and also with postoperative dressing placement. I attest to the content of the Intraoperative Record and any orders documented therein. Any exceptions are noted below.
[2017-12-17] MEDS ORDERED: LACTATED RINGER'S 1000ML 1,000 ML IV SCH (09:42)
[2017-12-17] MEDS ORDERED: MoRPHine SULFATE 2 MG/ML CARP IV PRN ×2 (09:45)
[2017-12-17] MEDS ORDERED: MoRPHine SULFATE 4 MG/ML 1 ML CARP\\VIAL IV PRN (09:45)
[2017-12-17] MEDS ORDERED: HYDR-5688 PO (09:46)
--- NOTE | 2017-12-17 09:49 | Discharge Instructions ---
Discharge Instructions Date of Service Dec 17, 2017. Admission Reason for Admission: Acalculous Cholecystitis Discharge Discharge Diagnosis / Problem: Acalculous Cholecystitis Discharge Goals Goal(s): Decrease discomfort, Improve function Activity Recommendations Activity Limitations: as noted below Lifting Limitations: no more than 10 pounds Exercise/Sports Limitations: until after follow-up appointment May Resume Sexual Activity: after follow-up appointment Shower/Bathe: tomorrow Driving or Machine Use: resume 1 day after discharge . Instructions / Follow-Up Instructions / Follow-Up You may resume your Aspirin therapy tomorrow, 12/18/2017 Please follow-up with Dr. Guerrero in the General Surgery Clinic in 1-2 weeks. Please call the office at [phone] to schedule this appointment. General Surgery Office Address- [address] [place] [address] [place] [address] Office Please call with any questions or concerns. Current Hospital Diet Patient's current hospital diet: Clear Liquid Diet Discharge Diet Recommended Diet: Regular Diet Procedures Procedures Performed: Laparoscopic Cholecystectomy Pending Studies Studies pending at discharge: yes List of pending studies: Pathology report. Medical Emergencies . Who to Call and When: Medical Emergencies: If at any time you feel your situation is an emergency, please call 911 immediately. . Non-Emergent Contact Non-Emergency issues call your: Primary Care Provider, Surgeon Call Non-Emergent contact if: temperature is above 101.5, your pain is not controlled, wound has increased drainage, wound has increased redness . "Provider Documentation" section prepared by Chasidy Craig. . VTE Core Measure Inpt VTE Proph given/why not?: SCD's
[2017-12-17] MEDS: FENTANYL CITRATE INJ 50 MCG/1 ML 2 ML VIAL IV PRN ×4 (09:51→10:13)
--- NOTE | 2017-12-17 10:34 | Anesthesiology Progress Note ---
Anesthesia Post Op Note Date & Time Dec 17, 2017 at 10:33 Vital Signs Pain Intensity: 3 Vital Signs Past 12 Hours Date Time Temp Pulse Resp B/P (MAP) Pulse Ox O2 Delivery O2 Flow Rate FiO2 12/17/17 10:20 36.2 73 16 101/67 100 Nasal Cannula 4 12/17/17 10:10 67 14 110/72 100 Nasal Cannula 4 12/17/17 10:00 71 14 94/74 100 Oxymask 10 12/17/17 09:50 72 16 118/84 100 Oxymask 10 12/17/17 09:41 36.2 88 16 123/87 100 Oxymask 10 12/17/17 07:26 36.7 90 16 125/85 (98) 97 Nasal Cannula 2.0 12/17/17 00:20 36.5 104 16 142/93 (109) 97 Room Air 12/17/17 00:20 Nasal Cannula 2.0 12/17/17 00:01 113/83 12/16/17 23:51 100 97 12/16/17 23:46 101 96 Nasal Cannula 2.0 12/16/17 23:42 Nasal Cannula 2.0 12/16/17 23:41 104 88 Room Air 12/16/17 23:39 Room Air 12/16/17 23:36 104 91 12/16/17 23:31 143/96 12/16/17 23:30 93 93 12/16/17 23:15 105 95 12/16/17 23:14 139/90 Notes Mental Status: alert / awake / arousable, participated in evaluation Pt Amnestic to Procedure: Yes Nausea / Vomiting: adequately controlled Pain: adequately controlled Airway Patency, RR, SpO2: stable & adequate BP & HR: stable & adequate Hydration State: stable & adequate Anesthetic Complications: no major complications apparent
[2017-12-17] MEDS ORDERED: NURSING VERBAL MED ORDER ONE (12:00)
[2017-12-17] MEDS: HYDROCODONE/ACETAMOPHEN 5/325MG TAB PO PRN ×3 (13:29→23:49)
--- NOTE | 2017-12-17 21:30 | CARDIOLOGY CONSULTATION ---
DATE OF CONSULTATION: 12/17/2017 INPATIENT CONSULTATION CONSULTATION REQUESTED BY: Dr. Potter. REASON FOR CONSULTATION: Preop risk assessment prior to undergoing urgent cholecystectomy. HISTORY OF PRESENT ILLNESS: Mrs. Cabrera is a very pleasant 47-year-old woman who normally follows with me as an outpatient for history of rheumatic valvular heart disease. She presented to [facility] on late in the evening of 12/16/2017 with a complaint of abdominal pain. She was found to have acute cholecystitis and was taken to the OR today for a cholecystectomy this morning. The patient tolerated the procedure well and right now states that she is feeling okay, just sore. She states some days leading up it she started having some right upper quadrant pain that was significantly worsened after eating at [employer] yesterday. Currently, again she is just sore at the incision site, otherwise feeling well. Denies any chest pain, shortness of breath, palpitations, lightheadedness, dizziness, or syncope. PAST SURGICAL HISTORY: 1. Postop day #0 for cholecystectomy. 2. Cervical lymph node biopsy. MEDICAL ILLNESSES: 1. Rheumatic heart disease with moderate aortic regurgitation and moderate mitral regurgitation. 2. History of Hodgkin lymphoma status post chemo and radiation. 3. Hypertension. 4. GERD. FAMILY HISTORY: Noncontributory. SOCIAL HISTORY: The patient is a former smoker. Denies any alcohol or recreational drug use. She is not . REVIEW OF SYSTEMS: As per HPI, all other review of systems reviewed and negative at this time. ALLERGIES: No known drug allergies. SHE IS ALLERGIC TO KIWI. MEDICATIONS AN OUTPATIENT: 1. Aspirin 81 mg daily. 2. Bisoprolol/hydrochlorothiazide 2.5/6.25 mg daily. 3. Celexa daily. 4. Levoxyl daily. 5. Prevacid daily. 6. Detrol daily. PHYSICAL EXAMINATION: VITALS: Temperature 36.2, pulse 90, respiratory rate 12, and blood pressure 121/85. GENERAL: Awake, alert, oriented x3, in no acute distress. HEENT: Normocephalic, atraumatic. Pupils equal, round, and reactive to light and accommodation. Extraocular muscles intact. Anicteric sclerae. Moist mucous membranes. NECK: No JVD, no bruit. CARDIOVASCULAR: Regular. Positive S4. Normal S1 and S2. No S3. Soft 3/6 holosystolic ejection murmur greatest at the left sternal border midclavicular line with radiation to the left axilla. No rubs. PULMONARY: Clear to auscultation bilaterally. No rales, rhonchi, or wheezing. ABDOMEN: Deferred given clinical context. EXTREMITIES: No clubbing, cyanosis or edema. +2 pedal pulses bilaterally. SKIN: Warm and dry. TEST RESULTS OF SIGNIFICANCE: Sodium 138, potassium 4.4, BUN 14, creatinine of 1. IMPRESSION: 1. Postop day #0 status post urgent cholecystectomy. 2. History of rheumatic heart disease with moderate aortic regurgitation and moderate mitral regurgitation. RECOMMENDATIONS: It was my pleasure to see Ms. Cabrera in reevaluation today. From a cardiac standpoint, she is doing very well and has tolerated the surgery without any significant cardiac issues. My only concern at this point would be for volume overload given her valvular disease, so she is currently receiving lactated Ringer's and we will stop the fluids after receiving a total of 1 liter, will then continue to follow her volume status clinically. She is now tolerating clears and I do not believe that volume depletion will be an issue. Otherwise, I will hold off on her blood pressure medicine today, but resume it tomorrow along with her aspirin, given her history of ASD as long as there are no contraindications from a surgical standpoint. No other cardiac testing or intervention is necessary at this time. Thank you very much for allowing me to participate in the care of your patient.
[2017-12-18 03:23] VITALS: BP 101/66; PULSE 74; TEMP 36.7; O2SAT 94
[2017-12-18 05:20] VITALS: BP 117/78; PULSE 82; O2SAT 95
[2017-12-18] MEDS ORDERED: LEVOTHYROXINE 25 MCG TAB PO SCH (06:00)
[2017-12-18 06:31] LABS: BASO % 0.1 %; BASO ABS # 0.01 K/uL (0-0.2); EOS % 0.1 %; EOS ABS # 0.02 K/uL (0-0.5); HEMATOCRIT 40.1 % (37-47); HEMOGLOBIN 12.8 g/dL (12.0-16.0); IG# 0.05 K/uL (0.00-0.02); LYMPH % 14.3 %; LYMPH ABS # 2.17 K/uL (1.2-3.4); MEAN CELL VOLUME 98.8 fL (80-100); MEAN CORPUSCULAR HEMOGLOBIN 31.5 pg (25-34); MEAN CORPUSCULAR HGB CONC 31.9 g/dl (32-36); MEAN PLATELET VOLUME 9.3 fL (7.4-10.4); MONO % 7.8 %; MONO ABS # 1.19 K/uL (0.11-0.59); NEUT % 77.4 %; NEUT ABS # 11.77 K/uL (1.4-6.5); PLATELET COUNT 231 K/uL (130-400); RED CELL DISTRIBUTION WIDTH CV 14.7 % (11.5-14.5); RED CELL DISTRIBUTION WIDTH SD 53.2 fL (36.4-46.3); WHITE BLOOD COUNT 15.21 K/uL (4.8-10.8)
[2017-12-18 07:07] LABS: ALBUMIN 3.1 gm/dl (3.4-5.0); TOTAL PROTEIN 6.2 gm/dl (6.4-8.2)
[2017-12-18 07:14] VITALS: BP 123/79; PULSE 76; TEMP 36.6; O2SAT 97
[2017-12-18] MEDS ORDERED: BISOPROLOL FUMARATE PO SCH (09:00)
[2017-12-18] MEDS ORDERED: BISOPROLOL FUMARATE 5 MG TAB PO SCH (09:00)
[2017-12-18] MEDS ORDERED: PANTOprazole SOD 40 MG TAB PO SCH (09:00)
[2017-12-18] MEDS ORDERED: HYDROCHLOROTHIAZIDE 25 MG TAB PO SCH (09:00)
[2017-12-18] MEDS ORDERED: HYDROCHLOROTHIAZIDE PO SCH (09:00)
[2017-12-18] MEDS ORDERED: [UNRECOGNIZED DRUG - OTHER] PO SCH (09:00)
[2017-12-18] MEDS ORDERED: ESCITALOPRAM OXALATE 10 MG TAB PO SCH (09:00)
[2017-12-18] MEDS ORDERED: ASPIRIN 81 MG ECTAB PO SCH (09:00)
[2017-12-18] MEDS ORDERED: TOLTERODINE TARTRATE LA 2 MG CAPCR PO SCH (09:00)
[2017-12-18] MEDS ORDERED: NON-FORMULARY MEDICATION SCH (09:00)
[2017-12-18 09:12] VITALS: BP 138/86; PULSE 80
--- NOTE | 2017-12-18 09:47 | Surgery Progress Note ---
Surgery Progress Note Date of Service Dec 18, 2017. Subjective Post OP Day: 1 + feeling well, + ambulating, + flatus, + pain controlled, No bowel movement, No nausea, No vomiting Objective Vital Signs: Date Time Temp Pulse Resp B/P (MAP) Pulse Ox O2 Delivery O2 Flow Rate FiO2 12/18/17 09:12 80 138/86 (103) 12/18/17 07:15 Room Air 12/18/17 07:14 36.6 76 17 123/79 (94) 97 Room Air 12/18/17 05:20 82 117/78 (91) 95 Room Air 12/18/17 03:23 36.7 74 18 101/66 (78) 94 Room Air 12/17/17 23:45 Room Air 12/17/17 22:52 36.8 96 16 115/75 (88) 94 Room Air 12/17/17 19:44 36.5 84 18 120/80 (93) 93 Room Air 12/17/17 15:20 93 Room Air 12/17/17 15:18 36.9 79 18 125/81 (96) 93 Nasal Cannula 2.0 12/17/17 14:10 98 16 126/74 (91) 94 Nasal Cannula 2.0 12/17/17 13:10 95 18 136/80 (98) 93 Nasal Cannula 2.0 12/17/17 12:10 79 16 109/65 (80) 99 Nasal Cannula 2.0 12/17/17 11:41 90 18 121/85 (97) 98 Nasal Cannula 2.0 12/17/17 11:10 96 Nasal Cannula 2.0 12/17/17 10:40 36.2 66 16 113/80 100 Nasal Cannula 4 12/17/17 10:30 36.2 68 16 110/71 100 Nasal Cannula 4 12/17/17 10:20 36.2 73 16 101/67 100 Nasal Cannula 4 12/17/17 10:10 67 14 110/72 100 Nasal Cannula 4 12/17/17 10:00 71 14 94/74 100 Oxymask 10 12/17/17 09:50 72 16 118/84 100 Oxymask 10 General Appearance: WD/WN, no apparent distress Abdomen: non distended, soft, + pertinent finding (trocar sites healing well. ) Incision(s): clean, dry, intact, no erythema, no drainage, findings (+ Dermabond ) Laboratory Results: Results Past 24 Hours Test 12/18/17 05:26 Range/Units White Blood Count 15.21 4.8-10.8 K/uL Red Blood Count 4.06 4.2-5.4 M/uL Hemoglobin 12.8 12.0-16.0 g/dL Hematocrit 40.1 37-47 % Mean Corpuscular Volume 98.8 80-100 fL Mean Corpuscular Hemoglobin 31.5 25-34 pg Mean Corpuscular Hemoglobin Concent 31.9 32-36 g/dl Platelet Count 231 130-400 K/uL Mean Platelet Volume 9.3 7.4-10.4 fL Neutrophils (%) (Auto) 77.4 % Lymphocytes (%) (Auto) 14.3 % Monocytes (%) (Auto) 7.8 % Eosinophils (%) (Auto) 0.1 % Basophils (%) (Auto) 0.1 % Neutrophils # (Auto) 11.77 1.4-6.5 K/uL Lymphocytes # (Auto) 2.17 1.2-3.4 K/uL Monocytes # (Auto) 1.19 0.11-0.59 K/uL Eosinophils # (Auto) 0.02 0-0.5 K/uL Basophils # (Auto) 0.01 0-0.2 K/uL RDW Standard Deviation 53.2 36.4-46.3 fL RDW Coefficient of Variation 14.7 11.5-14.5 % Immature Granulocyte % (Auto) 0.3 % Immature Granulocyte # (Auto) 0.05 0.00-0.02 K/uL Total Bilirubin 0.5 0.2-1 mg/dl Direct Bilirubin 0.2 0-0.2 mg/dl Aspartate Amino Transf (AST/SGOT) 91 15-37 U/L Alanine Aminotransferase (ALT/SGPT) 79 12-78 U/L Alkaline Phosphatase 50 45-117 U/L Total Protein 6.2 6.4-8.2 gm/dl Albumin 3.1 3.4-5.0 gm/dl Assessment & Plan POD #1- s/p Lap Margie. Feeling well this AM- no new concerns or complaints overnight. Morning labs reviewed. Pain controlled, tolerating diet. Ok for discharge today. Both verbal and written discharge instructions provided. Patient to follow- up in [facility] in 1-2 weeks. Work note provided and on chart.
[2017-12-18] MEDS: HYDROCODONE/ACETAMOPHEN 5/325MG TAB PO PRN (10:48)
[2017-12-18 12:55] VITALS: BP 138/86; PULSE 80; TEMP 36.6; O2SAT 97
--- NOTE | 2017-12-20 10:22 | Discharge Summary ---
Discharge Summary Date of Service Dec 20, 2017. Admission Date/Reason Dec 16, 2017 at 23:17 Acalculous Cholecystitis. Discharge Date/Disposition Dec 18, 2017 Home Diagnosis Principal Diagnosis: Acalculous Cholecystitis. Secondary Diagnoses/Problems: Rheumatic Heart Disease. Procedure(s) Performed Laparoscopic Cholecystectomy Consultations Cardiology Medication Reconciliation New Medications: Hydrocodone/Acetaminophen 5MG/325MG ([place] 5MG/325MG) Tab 1-2 TABLETS PO Q4 PRN for Pain for 3 Days, #30 TAB Continued Medications: Aspirin (Aspirin Ec) 81 Mg Tab 81 MG PO DAILY Bisoprolol Fumarate (Bisoprolol Fumarate/[place] 2.5-6.25 mg) 1 Ea Tab 1 TAB PO DAILY Escitalopram (Lexapro) 10 Mg Tab 20 MG PO DAILY Lansoprazole (Prevacid) 15 Mg Capcr 30 MG PO DAILY Levothyroxine Sodium (Levothyroxine Sodium) 25 Mcg Tab 25 MCG PO DAILY, TAB Tolterodine Tartrate (Detrol LA) 2 Mg Capcr 2 MG PO DAILY, CAP Admission Physical Exam As per Admitting History & Physical. Hospital Course Patient is a 47F who presented to [facility] with a several day history of RUQ pain that would develop after fatty meals. Her pain continued to become more severe and she became nauseous. Patient had WBC on admission of 13.08 with mild elevation in LFTs. RUQ U/S revealed gallbladder wall is markedly thickened and edematous. A sonographic Neff's sign is reportedly present. No shadowing gallstones are identified. The appearance is concerning for acalculus cholecystitis. Patient was taken to OR for Laparoscopic Cholecystectomy with Dr. Freddie Guerrero. Pre-Op Diagnosis- Acute Cholecystitis. Post-Op Diagnosis- Acute Cholecystitis. POD #1- Patient remained afebrile. Vital signs were stable. Cardiology was consulted due to patient's PMH of Rheumatic Heart Disease. Patient did well from a cardiac standpoint and no further cardiac testing was required. Patient was deemed safe for discharge. Both verbal and written discharge instructions were provided to patient. She is to follow-up in [facility] in 1-2 weeks. Discharge Instructions Please refer to the electronic Patient Visit Report (Discharge Instructions) for additional information.
== END 2017-12-18 14:32 | disposition home or self-care (01) | DRG 419 ==
LOC: C.EDB 19:43 → C.MSW 23:17 → ENRESERV 23:32
PROVIDERS: ADMIT Surgery; ATTEND Surgery
PROC: 0FT44ZZ Resection of Gallbladder, Percutaneous Endoscopic Approach (ICD-10-PCS; principal; 2017-12-17 11:30)
DX: K81.0 Acute cholecystitis (principal); K44.9 Diaphragmatic hernia without obstruction or gangrene; I09.9 Rheumatic heart disease, unspecified; I11.9 Hypertensive heart disease without heart failure; K21.9 Gastro-esophageal reflux disease without esophagitis; F17.200 Nicotine dependence, unspecified, uncomplicated; Z79.899 Other long term (current) drug therapy; Z79.82 Long term (current) use of aspirin; Z85.72 Personal history of non-Hodgkin lymphomas; Z92.21 Personal history of antineoplastic chemotherapy; Z92.3 Personal history of irradiation

== ENCOUNTER 2022-09-02 13:06 | Inpatient (IN) ==
[2022-09-02 14:13] LABS: Hematocrit (blood only) 24.2 % (34.1-44.9); Hemoglobin 6.3 g/dl (12.0-16.0); Mean Corpuscular Hemoglobin 18.8 pg (25.0-34.0); Mean Platelet Volume 8.9 fL (9.4-12.3); Nucleated RBC # (auto) 0.18 K/uL (0-0); Nucleated RBC % (auto) 2.6 %; Platelet Count 356 K/uL (130-400); RDW Coefficient of Variation 23.2 % (11.5-14.5); RDW Standard Deviation 59.2 fL (36.4-46.3); Red Blood Count 3.36 M/uL (3.93-5.22); White Blood Count 6.93 K/ul (4.8-10.8)
[2022-09-02 14:24] LABS: Albumin Globulin Ratio 0.9 (0.9-2); Albumin Level 3.9 gm/dl (3.4-5.0); BUN Creatinine Ratio 17.7 (10-20); Bilirubin,Total 1.3 mg/dl (0.2-1.0); Calcium 8.9 mg/dl (8.5-10.1); Creatinine Clr Calc Pharmacy 88.1 ml/min; Est GFR (African American) 99.1 ml/min; Est GFR (Non-African American) 85.5 ml/min; Globulin 4.3 gm/dl (2.5-4.0); Potassium 3.5 mmol/L (3.5-5.1); Total Protein 8.2 gm/dl (6.0-8.3)
[2022-09-02 14:28] LABS: Appearance Urine Cloudy (Clear); Bacteria Urine Automated 1+ (Negative); Bilirubin Urine Negative (Negative); Blood Urine Negative (Negative); Color Urine Yellow; Epithelial Cell Urine Auto >30 /lpf (0-5); Glucose Urine UA Negative (Negative); Ketones Urine Negative (Negative); Leukocyte Esterase Urine 1+ (Negative); Nitrite Urine Negative (Negative); Protein Urine Negative (Negative); RBC Urine Automated 0-4 /hpf (0-4); Specific Gravity Urine 1.011 (1.000-1.030); Urobilinogen Urine Positive (Negative); WBC Urine Automated >30 /hpf (0-5)
[2022-09-02 14:31] LABS: Acanthocytes 1+; Anisocytosis Present; Basophils # (auto) 0.06 K/uL (0-0.2); Basophils % (auto) 0.9 %; Eosinophils # (auto) 0.15 K/uL (0-0.50); Eosinophils % (auto) 2.2 %; Giant Platelets 1+; Immature Granulocytes # (auto) 0.08 K/uL (0.00-0.02); Immature Granulocytes % (auto) 1.2 %; Lymphocytes # (auto) 1.23 K/uL (1.2-3.4); Lymphocytes % (auto) 17.7 %; Monocytes # (auto) 0.89 K/uL (0.24-0.82); Monocytes % (auto) 12.8 %; Neutrophils # (auto) 4.52 K/uL (1.4-6.5); Neutrophils % (auto) 65.2 %; Polychromasia 1+; Spherocytes 1+
[2022-09-02 14:33] LABS: Prothrombin Time 39.6 Seconds (9.0-12.0)
[2022-09-02] MEDS ORDERED: SODIUM CHLORIDE 0.9% 250 ML IV PRN (14:38)
--- NOTE | 2022-09-02 14:43 | XRay Report ---
TWO VIEW CHEST CLINICAL HISTORY: Anemia. Fatigue.. FINDINGS: PA and lateral chest radiographs are compared to study dated 01/17/2021. The patient is stat us post midline sternotomy and cardiac valve surgery. The heart is enlarged noting atherosclerotic ca lcification of the thoracic aorta. There is pulmonary vascular congestion. Atelectasis is noted at th e lung bases. No airspace consolidation or pleural effusion is identified. There is no pneumothorax. The skeletal structures are osteopenic. The bony thorax appears intact. Cholecystectomy clips are not ed in the right upper quadrant. IMPRESSION: Cardiomegaly with pulmonary vascular congestion. ACT 112: Negative or not required by law. Electronically signed by: Glynn Feliz M.D. 09/02/2022 2:42 PM
--- NOTE | 2022-09-02 15:33 | Emergency Department Note ---
History of Present Illness General Chief complaint: Illness Stated complaint: FATIGUE, SHORT OF BREATHE HEART PROBLEM Time Seen by Provider: 09/02/22 13:32 History of Present Illness This 52-year-old female with a history of atrial flutter, valve replacement, Hodgkin's lymphoma, GERD, hypertension, sleep apnea, rheumatic heart disease, dissection of the left vertebral artery, CVA, and diabetes, presents today for evaluation of anemia. Patient states that she has had fatigue and lack of energy for the last several weeks. She was seen at her PCP office yesterday and had lab work done. She was called today, and was told she was anemic. She was told to come to the ED for further work-up. She states her hemoglobin was 6.2 yesterday and her INR was 2.8. She takes warfarin due to heart valve replacements. She denies any headache. No nausea or vomiting. No hematemesis. She denies any bloody stools or dark tarry stools. She denies any blood in her urine. She does feel as though it is difficult to catch her breath. She denies any wheezing or cough. Her Hodgkin's disease has been in remission for several years. Home Medications Medication Instructions Recorded Confirmed Type acyclovir 5 % topical cream 1 applic topical DIRECTED 09/02/22 09/02/22 History aspirin 81 mg tablet,delayed 162 mg PO DAILY 09/02/22 09/02/22 History release atorvastatin 40 mg tablet 40 mg PO QAM 09/02/22 09/02/22 History buspirone 5 mg tablet 5 mg PO BID PRN Anxiety 09/02/22 09/02/22 History citalopram 20 mg tablet 20 mg PO DAILY 09/02/22 09/02/22 History diclofenac sodium 1 % topical gel 2 g topical BID PRN Pain 09/02/22 09/02/22 History gabapentin 100 mg capsule 100 mg PO HS 09/02/22 09/02/22 History lansoprazole 30 mg capsule,delayed 30 mg PO QAM 09/02/22 09/02/22 History release levothyroxine 75 mcg tablet 75 mcg PO QAM 09/02/22 09/02/22 History (Euthyrox) losartan 25 mg tablet 12.5 mg PO QAM 09/02/22 09/02/22 History metformin 500 mg tablet 500 mg PO QAM 09/02/22 09/02/22 History metoprolol succinate 25 mg 25 mg PO DAILY 09/02/22 09/02/22 History tablet,extended release 24 hr multivitamin 1 tab PO DAILY 09/02/22 09/02/22 History potassium chloride 20 mEq 20 meq PO DAILY 09/02/22 09/02/22 History tablet,extended release (K-Tab) spironolactone 25 mg tablet 12.5 mg PO DAILY 09/02/22 09/02/22 History tolterodine 2 mg capsule,extended 2 mg PO DAILY 09/02/22 09/02/22 History release 24 hr torsemide 20 mg tablet 20 mg PO QAM 09/02/22 09/02/22 History torsemide 20 mg tablet 20 mg PO QPM PRN Fluid Retention 09/02/22 09/02/22 History warfarin 5 mg tablet 7.5 mg PO .[id number] 09/02/22 09/02/22 History warfarin 5 mg tablet 10 mg PO .QMON 09/02/22 09/02/22 History Allergies Allergy/AdvReac Type Severity Reaction Status Date / Time kiwi Allergy SV TONGUE Verified 09/02/22 16:49 SWELLS No Known Drug Allergies Allergy Unknown Unknown Unverified 09/02/22 16:49 Past Med/Surg History Medical History Atrial flutter DM2 (diabetes mellitus, type 2) GERD (gastroesophageal reflux disease) GIB (gastrointestinal bleeding) H/O Hodgkin's lymphoma "s/p chemo and radiation " HTN (hypertension) Hypothyroidism Mood disorder Obstructive sleep apnea of adult Rheumatic heart disease Severe mitral regurgitation Volume overload Surgical History S/P cholecystectomy Family History Other No pertinent family history in first degree relatives Social History Smoking Status: Current some day smoker Tobacco Type: Cigarettes Age Started Using Tobacco: 34; Age Quit Using Tobacco: 48; packs per day: 1; Number of Years Since Quit: 2; Hx Alcohol Use: Yes Alcohol type: wine Hx Substance Use: No Preferred Language: Georgian Communication Ability: Effective Carpenter Helper Required: No Beliefs That Will Affect Care: None marital status: Single Current Living Situation: Alone current occupational status: other 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 worked since Covid pandemic How many Children do You have: 1 Other Information That Helps Us Care for You: No Feels Safe at Home: Yes Safety Concerns: Feels Safe At This Time Assistive Devices: Cane Review of Systems A total of 10 systems reviewed and were otherwise negative Physical Exam Vital Signs Vital Signs - 24 hr 09/02/22 13:22 09/02/22 14:00 09/02/22 15:00 Temperature Temperature Source Pulse Rate Pulse Rate [Finger] 76 78 Pulse Rate from SpO2 Sensor Pulse Rhythm [Finger] Regular Pulse Strength [Finger] Normal Respiratory Rate 18 17 Respiratory Effort / Characteristics Non-Labored Spontaneous Non-Labored Spontaneous Respiratory Depth Normal Normal Respiratory Pattern Regular Blood Pressure Blood Pressure [Left Arm] 102/66 102/66 Blood Pressure Mean Blood Pressure Mean [Left Arm] 78 78 Blood Pressure Position [Left Arm] Sitting Pulse Oximetry 95 98 Oxygen Delivery Method Room Air Sepsis Recent Fever Within 48 Hours No Sepsis New/Unexplained Change in Mental Status N/A Sepsis Action Taken by Nursing No Action Required 09/02/22 15:42 09/02/22 14:03 09/02/22 14:10 Temperature Temperature Source Pulse Rate 83 82 Pulse Rate [Finger] 79 Pulse Rate from SpO2 Sensor Pulse Rhythm [Finger] Pulse Strength [Finger] Respiratory Rate 19 14 20 Respiratory Effort / Characteristics Non-Labored Respiratory Depth Normal Respiratory Pattern Blood Pressure Blood Pressure [Left Arm] 85/33 L Blood Pressure Mean Blood Pressure Mean [Left Arm] 50 Blood Pressure Position [Left Arm] Pulse Oximetry 98 Oxygen Delivery Method Room Air Sepsis Recent Fever Within 48 Hours Sepsis New/Unexplained Change in Mental Status Sepsis Action Taken by Nursing 09/02/22 14:20 09/02/22 14:30 09/02/22 15:42 Temperature Temperature Source Pulse Rate 81 80 Pulse Rate [Finger] Pulse Rate from SpO2 Sensor Pulse Rhythm [Finger] Pulse Strength [Finger] Respiratory Rate 18 17 Respiratory Effort / Characteristics Respiratory Depth Respiratory Pattern Blood Pressure 78/54 L Blood Pressure [Left Arm] Blood Pressure Mean 62 Blood Pressure Mean [Left Arm] Blood Pressure Position [Left Arm] Pulse Oximetry Oxygen Delivery Method Sepsis Recent Fever Within 48 Hours Sepsis New/Unexplained Change in Mental Status Sepsis Action Taken by Nursing 09/02/22 15:42 09/02/22 15:44 09/02/22 15:44 Temperature Temperature Source Pulse Rate Pulse Rate [Finger] Pulse Rate from SpO2 Sensor 78 76 Pulse Rhythm [Finger] Pulse Strength [Finger] Respiratory Rate Respiratory Effort / Characteristics Respiratory Depth Respiratory Pattern Blood Pressure Blood Pressure [Left Arm] Blood Pressure Mean 53 Blood Pressure Mean [Left Arm] Blood Pressure Position [Left Arm] Pulse Oximetry 98 98 Oxygen Delivery Method Sepsis Recent Fever Within 48 Hours Sepsis New/Unexplained Change in Mental Status Sepsis Action Taken by Nursing 09/02/22 15:46 09/02/22 15:47 09/02/22 15:50 Temperature Temperature Source Pulse Rate 87 Pulse Rate [Finger] Pulse Rate from SpO2 Sensor 127 H 87 Pulse Rhythm [Finger] Pulse Strength [Finger] Respiratory Rate 17 Respiratory Effort / Characteristics Respiratory Depth Respiratory Pattern Blood Pressure 85/33 L Blood Pressure [Left Arm] Blood Pressure Mean 50 Blood Pressure Mean [Left Arm] Blood Pressure Position [Left Arm] Pulse Oximetry 78 L 99 Oxygen Delivery Method Sepsis Recent Fever Within 48 Hours Sepsis New/Unexplained Change in Mental Status Sepsis Action Taken by Nursing 09/02/22 16:00 09/02/22 16:07 09/02/22 15:59 Temperature 36.9 C 36.9 C Temperature Source Oral Oral Pulse Rate 79 73 Pulse Rate [Finger] 77 Pulse Rate from SpO2 Sensor 74 Pulse Rhythm [Finger] Regular Pulse Strength [Finger] Normal Respiratory Rate 15 16 15 Respiratory Effort / Characteristics Non-Labored Spontaneous Respiratory Depth Normal Respiratory Pattern Regular Blood Pressure 123/69 Blood Pressure [Left Arm] 123/69 Blood Pressure Mean 87 Blood Pressure Mean [Left Arm] 87 Blood Pressure Position [Left Arm] Pulse Oximetry 97 97 99 Oxygen Delivery Method Room Air Sepsis Recent Fever Within 48 Hours Sepsis New/Unexplained Change in Mental Status Sepsis Action Taken by Nursing 09/02/22 15:59 09/02/22 16:00 09/02/22 16:15 Temperature Temperature Source Pulse Rate 77 79 Pulse Rate [Finger] Pulse Rate from SpO2 Sensor 77 79 Pulse Rhythm [Finger] Pulse Strength [Finger] Respiratory Rate 15 22 Respiratory Effort / Characteristics Respiratory Depth Respiratory Pattern Blood Pressure 123/69 Blood Pressure [Left Arm] Blood Pressure Mean 87 Blood Pressure Mean [Left Arm] Blood Pressure Position [Left Arm] Pulse Oximetry 97 100 Oxygen Delivery Method Sepsis Recent Fever Within 48 Hours Sepsis New/Unexplained Change in Mental Status Sepsis Action Taken by Nursing 09/02/22 16:15 Temperature Temperature Source Pulse Rate Pulse Rate [Finger] Pulse Rate from SpO2 Sensor Pulse Rhythm [Finger] Pulse Strength [Finger] Respiratory Rate Respiratory Effort / Characteristics Respiratory Depth Respiratory Pattern Blood Pressure 93/62 L Blood Pressure [Left Arm] Blood Pressure Mean 72 Blood Pressure Mean [Left Arm] Blood Pressure Position [Left Arm] Pulse Oximetry Oxygen Delivery Method Sepsis Recent Fever Within 48 Hours Sepsis New/Unexplained Change in Mental Status Sepsis Action Taken by Nursing General: Well-developed, well-nourished, middle-aged female, in no acute distress. Laying on the bed. Alert and oriented. Skin: Warm and dry with good turgor. No rashes or lesions. No ecchymosis or erythema. The patient is not diaphoretic. No abrasions. She does not appear overly pale. HEENT: Normocephalic atraumatic. Eyes PERRLA, EOMI. No conjunctiva or scleral injection. Nares patent bilaterally without turbinate enlargement. No significant drainage. No epistaxis. Oropharynx without erythema or exudate. Uvula midline, oral mucosa moist. No lesions present. Lymphatics are palpated without anterior or posterior chain enlargement or tenderness. Heart: Heart RRR. No MGR. Peripheral pulses are 2+. Mechanical valves are audible. Lungs: Lungs are clear to auscultation. No crackles rhonchi or wheezing. Good air movement. The patient is able to take a deep breath. Abdomen: Abdomen was inspected, auscultated, and palpated. Bowel sounds present x 4. Soft, nontender to palpation. No hepato-splenomegaly. No masses noted. No rebound. No CVA tenderness. Musculoskeletal: Gross motor function of the upper and lower extremities is intact and unremarkable. Neurologic: Gross sensation is intact across the upper and lower extremities by soft touch. Rectal: Rectum is without external hemorrhoids. No fissures are noted. Sphincter has good tone. There is a small amount of stool in the rectal vault. It is only faintly positive when Hemoccult tested. Course Administered Medications Atorvastatin Calcium (Atorvastatin 40 Mg Tab) 40 [facility] [place] [facility] [place] [facility] [place] 10/03/22 08:59 Last Admin: 09/03/22 08:43 Dose: 40 mg Documented By: KUSHAL Citalopram Hydrobromide (Citalopram 20 Mg Tab) 20 mg PO DAILY HAROLDO Stop: 10/03/22 08:59 Last Admin: 09/03/22 08:43 Dose: 20 mg Documented By: KUSHAL Ferrous Sulfate (Ferrous Sulfate 325 Mg Tab) 325 mg PO QAM [facility]OLDO Stop: 10/03/22 08:59 Last Admin: 09/03/22 08:50 Dose: 325 mg Documented By: KUSHAL Gabapentin (Gabapentin 100 Mg Cap) 100 mg PO HS HAROLDO Stop: 10/02/22 20:59 Last Admin: 09/02/22 21:37 Dose: 100 mg Documented By: RANDY Pantoprazole Sodium 40 mg/ (Syringe) 10 mls @ 5 mls/min IV BID HAROLDO Stop: 10/02/22 20:59 Last Admin: 09/03/22 08:43 Dose: 5 mls/min Documented By: Admin: 09/02/22 21:48 Dose: 5 mls/min Documented By: RANDY Insulin Aspart (Insulin Aspart Per Unit) 0 units SC ACHS HAROLDO Stop: 10/02/22 20:59 Last Admin: 09/03/22 07:42 Dose: Not Given Documented By: Admin: 09/02/22 22:01 Dose: 3 units Documented By: RANDY Co-signed By: RANDY(2) Levothyroxine Sodium (Levothyroxine Sodium 75 Mcg Tablet) 75 mcg PO DAILYBB HAROLDO Stop: 10/03/22 07:44 Last Admin: 09/03/22 08:42 Dose: 75 mcg Documented By: KUSHAL Metoprolol Succinate (Metoprolol Succ 25mg Ext Rel Tab) 25 mg PO DAILY HAROLDO Stop: 10/03/22 08:59 Last Admin: 09/03/22 08:42 Dose: 25 mg Documented By: KUSHAL Multivitamins (Multivitamin Tab) 1 tab PO DAILY HAROLDO Stop: 10/03/22 08:59 Last Admin: 09/03/22 08:43 Dose: 1 tab Documented By: KUSHAL Potassium Chloride (Potassium Chloride Crtab 20 Meq Tabcr) 20 meq PO DAILY [facility]OLDO Stop: 10/03/22 08:59 Last Admin: 09/03/22 08:42 Dose: 20 meq Documented By: KUSHAL Tolterodine Tartrate (Tolterodine Tartrate La 2 Mg Capcr) 2 mg PO DAILY HAROLDO Stop: 10/03/22 08:59 Last Admin: 09/03/22 08:42 Dose: 2 mg Documented By: KUSHAL Discontinued Medications Acetaminophen (Acetaminophen 325 Mg Tab) Confirm Administered Dose 650 mg .ROUTE .STK-MED ONE Stop: 09/02/22 16:12 Last Admin: 09/02/22 16:12 Dose: 650 mg Documented By: ROLO Diphenhydramine HCl (Diphenhydramine 50 Mg/Ml Vial) Confirm Administered Dose 50 mg .ROUTE .STK-MED ONE Stop: 09/02/22 16:12 Last Admin: 09/02/22 16:13 Dose: 25 mg Documented By: ROLO Furosemide (Furosemide Inj 20 Mg/2 Ml Vial) 20 mg IV ONE ONE Stop: 09/02/22 20:46 Last Admin: 09/02/22 20:51 Dose: 20 mg Documented By: RANDY Sodium Chloride (Nss 1000ml) 1,000 mls @ 999 mls/hr IV .Q1H1M HAROLDO Stop: 09/02/22 16:52 Last Admin: 09/02/22 17:26 Dose: Not Given Documented By: ROLO Critical Care Time 50 minutes was spent in critical care management, including time spent reviewing patient records, consulting with specialist, attending to the patient, and medic al decision making. Medical Decision Making Differential Diagnosis GI bleed, iron deficiency anemia, leukemia, lymphoma, malabsorption Medical Records Attestation: I reviewed the patient's medical records. Home Medications Current Medication List: was personally reviewed by me Laboratory Data CBC, chemistry panel, iron panel, PT/INR, magnesium, UA, and COVID test were obtained. CBC shows an H&H of 6.3 and 24.2. MCV, MCH, and MCHC are all low. Platelets normal at 356. She has polychromasia, and anisocytosis, spherocytes, and acanthocytes are present. INR is elevated at 4.0. Chemistry panel was relatively unremarkable. Magnesium is normal. COVID test is negative. UA shows urobilinogen 1+ leukocyte esterase and 1+ bacteria. There is a large amount of epithelials, so I suspect it is not a clean-catch. Iron is low at 22, TIBC is elevated at 570. Transferrin saturation is only 4%. Patient was typed and crossed for 2 units. Result diagrams: 09/03/22 02:09 09/03/22 02:09 Lab Results 09/02/22 09/02/22 09/02/22 Range/Units 13:47 13:47 13:47 WBC 6.93 (4.8-10.8) K/ul RBC 3.36 L (3.93-5.22) M/uL Hgb 6.3 L* (12.0-16.0) g/dl Hct 24.2 L (34.1-44.9) % MCV 72.0 L (80.0-100.0) fL MCH 18.8 L (25.0-34.0) pg MCHC 26.0 L (32.0-36.0) g/dL RDW Std Deviation 59.2 H (36.4-46.3) fL RDW Coeff of [place] 23.2 H (11.5-14.5) % Plt Count 356 (130-400) K/uL MPV 8.9 L (9.4-12.3) fL Immature Gran % (Auto) 1.2 % Neut % (Auto) 65.2 % Lymph % (Auto) 17.7 % [place] % (Auto) 12.8 % Eos % (Auto) 2.2 % Baso % (Auto) 0.9 % Neut # (Auto) 4.52 (1.4-6.5) K/uL Lymph # (Auto) 1.23 (1.2-3.4) K/uL [place] # (Auto) 0.89 H (0.24-0.82) K/uL Eos # (Auto) 0.15 (0-0.50) K/uL Baso # (Auto) 0.06 (0-0.2) K/uL Immature Gran # (Auto) 0.08 H (0.00-0.02) K/uL Absolute Nucleated RBC 0.18 H (0-0) K/uL Nucleated RBC % (auto) 2.6 % Giant Platelets 1+ Polychromasia 1+ Anisocytosis Present Spherocytes 1+ Acanthocytes (Spur) 1+ PT 39.6 H (9.0-12.0) Seconds INR 4.0 H (0.9-1.1) Sodium 136 (136-145) mmol/L Potassium 3.5 (3.5-5.1) mmol/L Chloride 101 (98-107) mmol/L Carbon Dioxide 27 (21-32) mmol/L Anion Gap 8 (3-11) BUN 14 (6-23) mg/dl Creatinine 0.79 (0.6-1.2) mg/dl Est Cr Clr Drug Dosing 88.1 ml/min Est GFR ( Amer) 99.1 ml/min Est GFR (Non-Af Amer) 85.5 ml/min BUN/Creatinine Ratio 17.7 (10-20) Glucose 100 H (70-99(Fasting)) mg/dl Calcium 8.9 (8.5-10.1) mg/dl Magnesium (1.7-2.4) mg/dl Iron (35-150) mcg/dl TIBC (250-450) mcg/dl Unsaturated IBC (155-355) mcg/dl Transferrin % Sat (15-50) % Total Bilirubin 1.3 H (0.2-1.0) mg/dl AST 29 (13-39) U/L ALT 21 (7-52) U/L Alkaline Phosphatase 129 H (34-104) U/L Total Protein 8.2 (6.0-8.3) gm/dl Albumin 3.9 (3.4-5.0) gm/dl Globulin 4.3 H (2.5-4.0) gm/dl Albumin/Globulin Ratio 0.9 (0.9-2) Urine Color Urine Appearance (Clear) Urine pH (4.5-7.5) Ur Specific [employer] (1.000-1.030) Urine Protein (Negative) Urine Glucose (UA) (Negative) Urine Ketones (Negative) Urine Blood (Negative) Urine Nitrite (Negative) Urine Bilirubin (Negative) Urine Urobilinogen (Negative) Ur Leukocyte Esterase (Negative) Urine WBC (Auto) (0-5) /hpf Urine RBC (Auto) (0-4) /hpf U Hyaline Cast (Auto) (0-5) /lpf U Epithel Cells (Auto) (0-5) /lpf Urine Bacteria (Auto) (Negative) Urine Test (Negative) SARS-CoV-2, RNA, NAAT (NEGATIVE) Blood Type Blood Type Recheck Antibody Screen Crossmatch 09/02/22 09/02/22 09/02/22 Range/Units 13:47 13:47 13:47 WBC (4.8-10.8) K/ul RBC (3.93-5.22) M/uL Hgb (12.0-16.0) g/dl Hct (34.1-44.9) % MCV (80.0-100.0) fL MCH (25.0-34.0) pg MCHC (32.0-36.0) g/dL RDW Std Deviation (36.4-46.3) fL RDW Coeff of [place] (11.5-14.5) % Plt Count (130-400) K/uL MPV (9.4-12.3) fL Immature Gran % (Auto) % Neut % (Auto) % Lymph % (Auto) % [place] % (Auto) % Eos % (Auto) % Baso % (Auto) % Neut # (Auto) (1.4-6.5) K/uL Lymph # (Auto) (1.2-3.4) K/uL [place] # (Auto) (0.24-0.82) K/uL Eos # (Auto) (0-0.50) K/uL Baso # (Auto) (0-0.2) K/uL Immature Gran # (Auto) (0.00-0.02) K/uL Absolute Nucleated RBC (0-0) K/uL Nucleated RBC % (auto) % Giant Platelets Polychromasia Anisocytosis Spherocytes Acanthocytes (Spur) PT (9.0-12.0) Seconds INR (0.9-1.1) Sodium (136-145) mmol/L Potassium (3.5-5.1) mmol/L Chloride (98-107) mmol/L Carbon Dioxide (21-32) mmol/L Anion Gap (3-11) BUN (6-23) mg/dl Creatinine (0.6-1.2) mg/dl Est Cr Clr Drug Dosing ml/min Est GFR ( Amer) ml/min Est GFR (Non-Af Amer) ml/min BUN/Creatinine Ratio (10-20) Glucose (70-99(Fasting)) mg/dl Calcium (8.5-10.1) mg/dl Magnesium 1.9 (1.7-2.4) mg/dl Iron 22 L (35-150) mcg/dl TIBC 570 H (250-450) mcg/dl Unsaturated IBC 548 H (155-355) mcg/dl Transferrin % Sat 4 L (15-50) % Total Bilirubin (0.2-1.0) mg/dl AST (13-39) U/L ALT (7-52) U/L Alkaline Phosphatase (34-104) U/L Total Protein (6.0-8.3) gm/dl Albumin (3.4-5.0) gm/dl Globulin (2.5-4.0) gm/dl Albumin/Globulin Ratio (0.9-2) Urine Color Yellow Urine Appearance Cloudy A (Clear) Urine pH 7.0 (4.5-7.5) Ur Specific [employer] 1.011 (1.000-1.030) Urine Protein Negative (Negative) Urine Glucose (UA) Negative (Negative) Urine Ketones Negative (Negative) Urine Blood Negative (Negative) Urine Nitrite Negative (Negative) Urine Bilirubin Negative (Negative) Urine Urobilinogen Positive H (Negative) Ur Leukocyte Esterase 1+ H (Negative) Urine WBC (Auto) >30 H (0-5) /hpf Urine RBC (Auto) 0-4 (0-4) /hpf U Hyaline Cast (Auto) 1-5 (0-5) /lpf U Epithel Cells (Auto) >30 H (0-5) /lpf Urine Bacteria (Auto) 1+ H (Negative) Urine Test (Negative) SARS-CoV-2, RNA, NAAT (NEGATIVE) Blood Type Blood Type Recheck Antibody Screen Crossmatch 09/02/22 09/02/22 09/02/22 Range/Units 13:47 14:21 15:13 WBC (4.8-10.8) K/ul RBC (3.93-5.22) M/uL Hgb (12.0-16.0) g/dl Hct (34.1-44.9) % MCV (80.0-100.0) fL MCH (25.0-34.0) pg MCHC (32.0-36.0) g/dL RDW Std Deviation (36.4-46.3) fL RDW Coeff of [place] (11.5-14.5) % Plt Count (130-400) K/uL MPV (9.4-12.3) fL Immature Gran % (Auto) % Neut % (Auto) % Lymph % (Auto) % [place] % (Auto) % Eos % (Auto) % Baso % (Auto) % Neut # (Auto) (1.4-6.5) K/uL Lymph # (Auto) (1.2-3.4) K/uL [place] # (Auto) (0.24-0.82) K/uL Eos # (Auto) (0-0.50) K/uL Baso # (Auto) (0-0.2) K/uL Immature Gran # (Auto) (0.00-0.02) K/uL Absolute Nucleated RBC (0-0) K/uL Nucleated RBC % (auto) % Giant Platelets Polychromasia Anisocytosis Spherocytes Acanthocytes (Spur) PT (9.0-12.0) Seconds INR (0.9-1.1) Sodium (136-145) mmol/L Potassium (3.5-5.1) mmol/L Chloride (98-107) mmol/L Carbon Dioxide (21-32) mmol/L Anion Gap (3-11) BUN (6-23) mg/dl Creatinine (0.6-1.2) mg/dl Est Cr Clr Drug Dosing ml/min Est GFR ( Amer) ml/min Est GFR (Non-Af Amer) ml/min BUN/Creatinine Ratio (10-20) Glucose (70-99(Fasting)) mg/dl Calcium (8.5-10.1) mg/dl Magnesium (1.7-2.4) mg/dl Iron (35-150) mcg/dl TIBC (250-450) mcg/dl Unsaturated IBC (155-355) mcg/dl Transferrin % Sat (15-50) % Total Bilirubin (0.2-1.0) mg/dl AST (13-39) U/L ALT (7-52) U/L Alkaline Phosphatase (34-104) U/L Total Protein (6.0-8.3) gm/dl Albumin (3.4-5.0) gm/dl Globulin (2.5-4.0) gm/dl Albumin/Globulin Ratio (0.9-2) Urine Color Urine Appearance (Clear) Urine pH (4.5-7.5) Ur Specific [employer] (1.000-1.030) Urine Protein (Negative) Urine Glucose (UA) (Negative) Urine Ketones (Negative) Urine Blood (Negative) Urine Nitrite (Negative) Urine Bilirubin (Negative) Urine Urobilinogen (Negative) Ur Leukocyte Esterase (Negative) Urine WBC (Auto) (0-5) /hpf Urine RBC (Auto) (0-4) /hpf U Hyaline Cast (Auto) (0-5) /lpf U Epithel Cells (Auto) (0-5) /lpf Urine Bacteria (Auto) (Negative) Urine Test Negative (Negative) SARS-CoV-2, RNA, NAAT (NEGATIVE) Blood Type O Negative Blood Type Recheck O Negative Antibody Screen NEGATIVE Crossmatch See Detail 09/02/22 Range/Units 15:45 WBC (4.8-10.8) K/ul RBC (3.93-5.22) M/uL Hgb (12.0-16.0) g/dl Hct (34.1-44.9) % MCV (80.0-100.0) fL MCH (25.0-34.0) pg MCHC (32.0-36.0) g/dL RDW Std Deviation (36.4-46.3) fL RDW Coeff of [place] (11.5-14.5) % Plt Count (130-400) K/uL MPV (9.4-12.3) fL Immature Gran % (Auto) % Neut % (Auto) % Lymph % (Auto) % [place] % (Auto) % Eos % (Auto) % Baso % (Auto) % Neut # (Auto) (1.4-6.5) K/uL Lymph # (Auto) (1.2-3.4) K/uL [place] # (Auto) (0.24-0.82) K/uL Eos # (Auto) (0-0.50) K/uL Baso # (Auto) (0-0.2) K/uL Immature Gran # (Auto) (0.00-0.02) K/uL Absolute Nucleated RBC (0-0) K/uL Nucleated RBC % (auto) % Giant Platelets Polychromasia Anisocytosis Spherocytes Acanthocytes (Spur) PT (9.0-12.0) Seconds INR (0.9-1.1) Sodium (136-145) mmol/L Potassium (3.5-5.1) mmol/L Chloride (98-107) mmol/L Carbon Dioxide (21-32) mmol/L Anion Gap (3-11) BUN (6-23) mg/dl Creatinine (0.6-1.2) mg/dl Est Cr Clr Drug Dosing ml/min Est GFR ( Amer) ml/min Est GFR (Non-Af Amer) ml/min BUN/Creatinine Ratio (10-20) Glucose (70-99(Fasting)) mg/dl Calcium (8.5-10.1) mg/dl Magnesium (1.7-2.4) mg/dl Iron (35-150) mcg/dl TIBC (250-450) mcg/dl Unsaturated IBC (155-355) mcg/dl Transferrin % Sat (15-50) % Total Bilirubin (0.2-1.0) mg/dl AST (13-39) U/L ALT (7-52) U/L Alkaline Phosphatase (34-104) U/L Total Protein (6.0-8.3) gm/dl Albumin (3.4-5.0) gm/dl Globulin (2.5-4.0) gm/dl Albumin/Globulin Ratio (0.9-2) Urine Color Urine Appearance (Clear) Urine pH (4.5-7.5) Ur Specific [employer] (1.000-1.030) Urine Protein (Negative) Urine Glucose (UA) (Negative) Urine Ketones (Negative) Urine Blood (Negative) Urine Nitrite (Negative) Urine Bilirubin (Negative) Urine Urobilinogen (Negative) Ur Leukocyte Esterase (Negative) Urine WBC (Auto) (0-5) /hpf Urine RBC (Auto) (0-4) /hpf U Hyaline Cast (Auto) (0-5) /lpf U Epithel Cells (Auto) (0-5) /lpf Urine Bacteria (Auto) (Negative) Urine Test (Negative) SARS-CoV-2, RNA, NAAT NEGATIVE (NEGATIVE) Blood Type Blood Type Recheck Antibody Screen Crossmatch Imaging Data My Impression: Chest x-ray obtained today was reviewed by me and read by radiology. She has cardiomegaly with pulmonary vascular congestion. Artificial valves are noted. Radiologist's Impression: Chest X-Ray 09/02/22 13:46 TWO VIEW CHEST CLINICAL HISTORY: Anemia. Fatigue.. FINDINGS: PA and lateral chest radiographs are compared to study dated 01/17/2021. The patient is status post midline sternotomy and cardiac valve surgery. The heart is enlarged noting atherosclerotic calcification of the thoracic aorta. There is pulmonary vascular congestion. Atelectasis is noted at the lung bases. No airspace consolidation or pleural effusion is identified. There is no pneumothorax. The skeletal structures are osteopenic. The bony thorax appears intact. Cholecystectomy clips are noted in the right upper quadrant. IMPRESSION: Cardiomegaly with pulmonary vascular congestion. ACT 112: Negative or not required by law. Electronically signed by: Glynn Feliz M.D. 09/02/2022 2:42 PM Blood Pressure Blood Pressure Findings: Normal blood pressure MDM Narrative Patient was evaluated in room C7. Conservative care measures were discussed. IV was established. Labs were obtained. She was placed on a alteration tailor and remained stable while in the department, with a rate in the mid 70s chest x-ray was obtained and was unremarkable. EKG was also obtained and was unremarkable. Lab work showed a significant iron deficiency anemia. Patient was typed and crossmatched for 2 units. Informed written consent was obtained for blood transfusion. First unit was started in the ED. She did have an episode of hypotension while in the ED. Because of this, she was given 250ml normal sterile saline IV bolus until her blood was ready. Patient was asymptomatic during her hypotensive event. Stool analysis was equivocal on Hemoccult. Patient will require GI evaluation to identify a source of blood loss. After discussion with the patient, mutual decision making determined she would be best served by admission. [facility] service was consulted. Please see that dictation for final management. Impression & Plan Anemia Patient was seen in conjunction with Dr. Vazquez, who also evaluated the patient and concurred with today's diagnosis and treatment plan. Discharge Plan Visit Data Chief Complaint: Illness Stated Complaint: FATIGUE, SHORT OF BREATHE HEART PROBLEM ED Provider: Tesfaye Vazquez ED Midlevel Provider: Brian Amezquita Discharge Problem: Anemia Patient Disposition: Admitted As Inpatient Discharge Instructions Interventions: ED Discharge Assessment Last Done: 09/02/22 15:12
[2022-09-02 15:38] LABS: Iron 22 mcg/dl (35-150); Total Iron Binding Cap Calc 570 mcg/dl (250-450); Transferrin (FE) Percent Satur 4 % (15-50); Unsaturated Iron Binding Cap 548 mcg/dl (155-355)
--- NOTE | 2022-09-02 15:47 | History & Physical Report ---
Date of Service September 02, 2022 Assessment & Plan (1) GIB (gastrointestinal bleeding): Plan: Pt was seen and examined. Agreed with Sydney ALDRICH exam, assessment and plan. 50 year old female was sent to the ED for low hemoglobin. Pt said that said that she has been having lab done to monitor her hgb. She said cari she had lab done yesterday and found her hgb 6.8. She said that she has been feeling tired and more SOB from her baseline. Se denies any abnormal bowel movement or hematuria. she said that she is on coumadin for her mitral valve replacement and 2 tablet asa 81mg that was started after she had a stroke. Denies any chest pain, palpitation, dizziness and fever. Lab in the ER showed Hgb 6.3 and INR 4. She is currently being transfuse 1 out of the 2 units PRBC. Will not give any vit K since there is no active bleeding and she is at risk of thrombosis. Will hold on Coumadin and aspirin for now. Will consult GI. NPO after midnight. Continue monitor H/H and transfused if hgb continue to drop. Will start on iron supplement. Will need to watch closely for volume overload since cxr showed Cardiomegaly with pulmonary vascular congestion. Lasix given btw transfusion. Continue monitor closely. MD Dwaine (2) Rheumatic heart disease: (3) S/P AVR (aortic valve replacement): (4) S/P MVR (mitral valve replacement): (5) H/O Hodgkin's lymphoma: (6) DM2 (diabetes mellitus, type 2): (7) Hypothyroidism: (8) HTN (hypertension): Plan This is a 50 year old female that presented to the [facility] as recommended by her outpatient PCP for a low hgb of 6.8 yesterday. Her baseline is 11-12. Today, in the ED her Hgb is 6.3 without BRBPR or any signs of active bleeding. Hemoccult showed a faint positive.Chronic anticoagulation s/p mechanical AVR/MVR. 2 UPRBC with one dose Lasix in-betweem. IV PPI, Hold Coumadin and ASA, GI Consult. GIB: Referred by PCP for low Hgb on labs from 05/03: 6.8 In ED Hgb 6.3; T/C done and 2 UPRBC ordered; Lasix 20 mg after first unit Recheck H/H one hour after 2nd unit infused and in AM Protonix IV BID GI Consult; discussed with Dr. Vivar Hold Coumadin and ASA Clear Liquid diet; NPO after MN On Lansoprazole for GERD Rheumatic heart disease s/p AVR s/p MVR: Severe valvular disease requiring replacement of mitral valve, tricuspid valve, aortic valve Patient is anticoagulated with warfarin with a supratherapeutic at 4.0 Repeat ECHO HTN: Home medications include losartan and metoprolol succinate Patient is also anticoagulated chronically with spironolactone and torsemide She is not appear to be clinically fluid overloaded Continue home antihypertensives Follow on telemetry DM2: Takes Metformin; hold while inpt A1C in AM AC/HS FSBS Novolog SSI: --Goal BSG Range: Low 110 mg/dL, High 160 mg/dL --Correction Factor: 25 mg/dL/unit --Carbohydrate ratio = 8 g/unit --BSGs ACHS if eating, q6h if npo H/O Hodgkins Lymphoma: Diagnosed and treated with chemotherapy and XRT in her 20s No evidence of recurrence disease since that time Hypothyroidism: Probably combination of acquired as well as XRT with history of lymphoma Continue with levothyroxine 75 mcg daily Dispo: PCP: Dr. Cardoza VTE: SCDs Code: full I personally was able to review all current laboratory work and diagnostic images obtained in the ED. Additionally, I was able to review the patients past medication reconciliation and history with direct visualization in the patients chart. Case discussed and collaborated with Dr. Isidro. History of Present Illness Chief Complaint: low hgb Primary Care Provider: Johanna Cardoza DO This is a 50 year old female that presented to the [facility] as recommended by her outpatient PCP for a low hgb of 6.8 yesterday. Her baseline is 11-12. Today, in the ED her Hgb is 6.3 without BRBPR or any signs of active bleeding. Hemoccult showed a faint positive. Patient has reported that she is chronically SOB related to her heart condition as outlined in her PMH; however, her SOB has worsened with exertion over the past week. Patient has a complex PMH that includes: rheumatic heart disease, valvular disease requiring mitral valve replacement, aortic valve replacement (on chronic Coumadin), tricuspid valve repair, hypertension, GERD, H/O Hodgkin Lymphoma, hypothyroidism, atrial flutter, history of tobacco abuse, obesity and GERD. Because of her valvular replacement she is currently anticoagulated with warfarin and has a suprathera putic INR of 4.0. She also takes TWO baby aspirin for a total of 162 mg. Will hold both for now. Patient denies any falls. Patient denies any CURTIS, dizziness, CP, palpitations, N/V/D, skin changes, recent trauma or falls. The patient further denies recent illness.Patient was typed and crossed in the ED for 2 UPRBC. She was premedicated in the ED and will receive 2UPRBC with a dose of Lasix after the first unit. On exam, patient was lying in her hospital bed in no apparent distress. She was able to hold conversation and follow all commands. Patient receptive to admissionfor further evaluation and management. Please see A/p for further details. Allergies Allergy/AdvReac Type Severity Reaction Status Date / Time kiwi Allergy SV TONGUE Verified 09/02/22 16:49 SWELLS No Known Drug Allergies Allergy Unknown Unknown Unverified 09/02/22 16:49 Home Medications Medication Instructions Recorded Confirmed Type acyclovir 5 % topical cream 1 applic topical DIRECTED 09/02/22 09/02/22 History aspirin 81 mg tablet,delayed 162 mg PO DAILY 09/02/22 09/02/22 History release atorvastatin 40 mg tablet 40 mg PO QAM 09/02/22 09/02/22 History buspirone 5 mg tablet 5 mg PO BID PRN Anxiety 09/02/22 09/02/22 History citalopram 20 mg tablet 20 mg PO DAILY 09/02/22 09/02/22 History diclofenac sodium 1 % topical gel 2 g topical BID PRN Pain 09/02/22 09/02/22 History gabapentin 100 mg capsule 100 mg PO HS 09/02/22 09/02/22 History lansoprazole 30 mg capsule,delayed 30 mg PO QAM 09/02/22 09/02/22 History release levothyroxine 75 mcg tablet 75 mcg PO QAM 09/02/22 09/02/22 History (Euthyrox) losartan 25 mg tablet 12.5 mg PO QAM 09/02/22 09/02/22 History metformin 500 mg tablet 500 mg PO QAM 09/02/22 09/02/22 History metoprolol succinate 25 mg 25 mg PO DAILY 09/02/22 09/02/22 History tablet,extended release 24 hr multivitamin 1 tab PO DAILY 09/02/22 09/02/22 History potassium chloride 20 mEq 20 meq PO DAILY 09/02/22 09/02/22 History tablet,extended release (K-Tab) spironolactone 25 mg tablet 12.5 mg PO DAILY 09/02/22 09/02/22 History tolterodine 2 mg capsule,extended 2 mg PO DAILY 09/02/22 09/02/22 History release 24 hr torsemide 20 mg tablet 20 mg PO QAM 09/02/22 09/02/22 History torsemide 20 mg tablet 20 mg PO QPM PRN Fluid Retention 09/02/22 09/02/22 History warfarin 5 mg tablet 7.5 mg PO .[id number] 09/02/22 09/02/22 History warfarin 5 mg tablet 10 mg PO .QMON 09/02/22 09/02/22 History Past Med/Surg History Medical History (Updated 09/02/22 @ 18:15 by RACHAEL Ontiveros) Atrial flutter DM2 (diabetes mellitus, type 2) GERD (gastroesophageal reflux disease) GIB (gastrointestinal bleeding) H/O Hodgkin's lymphoma "s/p chemo and radiation " HTN (hypertension) Hypothyroidism Mood disorder Obstructive sleep apnea of adult Rheumatic heart disease Severe mitral regurgitation Volume overload Surgical History S/P cholecystectomy Family History Other No pertinent family history in first degree relatives Social History Smoking Status: Current some day smoker Tobacco Type: Cigarettes Age Started Using Tobacco: 34; Age Quit Using Tobacco: 48; packs per day: 1; Number of Years Since Quit: 2; Hx Alcohol Use: Yes Alcohol type: wine Hx Substance Use: No Preferred Language: Faroese Communication Ability: Effective Textile Finisher Required: No Beliefs That Will Affect Care: None marital status: Single Current Living Situation: Alone current occupational status: other 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 How many Children do You have: 1 Other Information That Helps Us Care for You: No Feels Safe at Home: Yes Safety Concerns: Feels Safe At This Time Assistive Devices: Cane Review of Systems Review of Systems: Neuro: (-) Falls, trauma, slurred speech HEENT: (-) CURTIS, dizziness, dysphagia, visual or auditory changes CV: (-) CP, palpitations, swelling Resp: (+) SOB GI: (-) appetite changes, N/V/D, bowel changes : (-) urinary changes Skin: (-) rashes Psych: (-) anxiety, depressio+ Physical Exam Physical Exam: Neuro: AAOx4, PERRLA, no aphagia, memory changes, CNII-XII grossly intact HEENT: head normocephalic, moist mucus membranes CV: S1/S2, (-) M/G/R, (+) click (-) edema, cap refill < 3 seconds Resp: Lungs CTA in all tolbert. On RA GI: Abdomen S/NT/ND, Ax4 bowel sounds, (-) CVA tenderness Musculoskeletal: 5/5 B/L UE strength, 5/5 B/L LE strength. No gait disturbance Skin: (-) rashes , (-) erythema. Psych: euthymic mood Results & Data Results & Data ([facility]) Vital Signs (Past 12 Hours) Vital Signs Pulse Resp BP Pulse Ox O2 Del Method 09/02/22 15:00 78 17 102/66 98 09/02/22 14:00 76 18 102/66 95 Room Air Laboratory Results Short CBC 09/02/22 Range/Units 13:47 WBC 6.93 (4.8-10.8) K/ul Hgb 6.3 L* (12.0-16.0) g/dl Hct 24.2 L (34.1-44.9) % Plt Count 356 (130-400) K/uL BMP 09/02/22 13:47 Sodium 136 Potassium 3.5 Chloride 101 Carbon Dioxide 27 BUN 14 Creatinine 0.79 Glucose 100 H Calcium 8.9 Liver Function 09/02/22 Range/Units 13:47 Total Bilirubin 1.3 H (0.2-1.0) mg/dl AST 29 (13-39) U/L ALT 21 (7-52) U/L Alkaline Phosphatase 129 H (34-104) U/L Albumin 3.9 (3.4-5.0) gm/dl Urine 09/02/22 Range/Units 13:47 Urine Color Yellow Urine Appearance Cloudy A (Clear) Urine pH 7.0 (4.5-7.5) Ur Specific [place] 1.011 (1.000-1.030) Urine Protein Negative (Negative) Urine Glucose (UA) Negative (Negative) Diagnostic Findings Chest X-Ray 09/02/22 13:46 TWO VIEW CHEST CLINICAL HISTORY: Anemia. Fatigue.. FINDINGS: PA and lateral chest radiographs are compared to study dated 01/17/2021. The patient is status post midline sternotomy and cardiac valve surgery. The heart is enlarged noting atherosclerotic calcification of the thoracic aorta. There is pulmonary vascular congestion. Atelectasis is noted at the lung bases. No airspace consolidation or pleural effusion is identified. T here is no pneumothorax. The skeletal structures are osteopenic. The bony thorax appears intact. Cholecystectomy clips are noted in the right upper quadrant. IMPRESSION: Cardiomegaly with pulmonary vascular congestion. ACT 112: Negative or not required by law. Electronically signed by: Glynn Feliz M.D. 09/02/2022 2:42 PM ECG Additional Comments: Vent. rate 83 BPM WI interval 206 ms QRS duration 140 ms QT/QTc 464/545 ms Code Status & VTE Plan Code Status Full Code in the event of cardiac or respiratory arrest VTE Prophylaxis Plan VTE Prophylaxis will be ordered: Yes (1) Hypothyroidism Hypothyroidism type: due to non-medication exogenous substances Qualified Code(s): E03.2 - Hypothyroidism due to medicaments and other exogenous substances (2) HTN (hypertension) Hypertension type: unspecified Qualified Code(s): I10 - Essential (primary) hypertension
[2022-09-02] MEDS ORDERED: SODIUM CHLORIDE 0.9% 1000ML 1,000 ML IV SCH (15:52)
[2022-09-02] MEDS ORDERED: diphenhydrAMINE 50 MG/ML VIAL ONE (16:11)
[2022-09-02] MEDS ORDERED: ACETAMINOPHEN 325 MG TAB ONE (16:11)
--- NOTE | 2022-09-02 18:24 | Electrocardiogram Report ---
Test Reason : Blood Pressure : / mmHG Vent. Rate : 083 BPM Atrial Rate : 083 BPM P-R Int : 206 ms QRS Dur : 140 ms QT Int : 464 ms P-R-T Axes : 068 -36 113 degrees QTc Int : 545 ms Normal sinus rhythm Left axis deviation Left bundle branch block Abnormal ECG When compared with ECG of 17-JAN-2021 10:02, QRS axis Shifted left Confirmed by Marshall Grove ([id number]) on 09/02/2022 6:24:01 PM Referred By: REFERRED SELF Confirmed By:Dangelo Grove
[2022-09-02] MEDS ORDERED: GLUCOSE 10 TAB/TUBE PO PRN (20:33)
[2022-09-02] MEDS ORDERED: GLUCOSE 40% GEL 15 GM TUBE PO PRN (20:33)
[2022-09-02] MEDS ORDERED: GLUCAGON FOR INJ 1 MG VIAL SQ PRN (20:33)
[2022-09-02] MEDS ORDERED: CARBOHYDRATES FOR HYPOGLYCEMIA PO PRN (20:33)
[2022-09-02] MEDS ORDERED: DEXTROSE 50% 50 ML SYRINGE IV PRN (20:33)
[2022-09-02] MEDS ORDERED: DC ALL PREVIOUSLY ORDERED DIABETES MEDS ONE (20:33)
[2022-09-02] MEDS ORDERED: busPIRone 5 MG TAB PO PRN (20:33)
[2022-09-02] MEDS ORDERED: FUROSEMIDE INJ 20 MG/2 ML VIAL IV ONE (20:45)
[2022-09-02] MEDS ORDERED: TORSEMIDE 20 MG TAB PO PRN (20:55)
[2022-09-02] MEDS: GABAPENTIN 100 MG CAP PO SCH (21:37)
[2022-09-02 21:39] LABS: Pregnancy Test, Urine Negative (Negative)
[2022-09-02] MEDS: PANTOprazole 40 MG in SYRINGE 0 ML IV SCH (21:48)
[2022-09-02] MEDS: INSULIN ASPART PER UNIT SC SCH (22:01)
[2022-09-03 02:33] LABS: Hematocrit (blood only) 26.7 % (34.1-44.9); Hemoglobin 7.3 g/dl (12.0-16.0); Mean Corpuscular Hemoglobin 20.3 pg (25.0-34.0); Mean Corpuscular Hgb Conc 27.3 g/dL (32.0-36.0); Mean Corpuscular Volume 74.2 fL (80.0-100.0); Mean Platelet Volume 8.8 fL (9.4-12.3); Nucleated RBC # (auto) 0.16 K/uL (0-0); Nucleated RBC % (auto) 2.8 %; Platelet Count 278 K/uL (130-400); RDW Coefficient of Variation 22.3 % (11.5-14.5); RDW Standard Deviation 59.1 fL (36.4-46.3); White Blood Count 5.78 K/ul (4.8-10.8)
[2022-09-03] MEDS ORDERED: SODIUM CHLORIDE 0.9% 250 ML IV PRN ×2 (02:46→07:44)
[2022-09-03 02:51] LABS: INR 3.3 (0.9-1.1); Prothrombin Time 33.3 Seconds (9.0-12.0)
[2022-09-03 03:06] LABS: BUN Creatinine Ratio 15.5 (10-20); Calcium 8.2 mg/dl (8.5-10.1); Creatinine Clr Calc Pharmacy 82.7 ml/min; Est GFR (Non-African American) 79.3 ml/min; Potassium 3.4 mmol/L (3.5-5.1)
[2022-09-03] MEDS: INSULIN ASPART PER UNIT SC SCH ×4 (07:42→20:35)
--- NOTE | 2022-09-03 08:01 | XRay Report ---
XR chest 1V portable HISTORY: 52 years-old Female post-operative coughing and wheezing acute cough with wheezing COMPARISON: Chest radiographs 09/02/2022 TECHNIQUE: AP view of the chest FINDINGS: Cardiac silhouette is enlarged. Prior median sternotomy with cardiac valvular prosthesis. No pneumoth orax, large pleural effusion or lobar airspace consolidation. Pulmonary vascular congestion. The bone s appear grossly intact. IMPRESSION: Cardiomegaly with pulmonary vascular congestion. ACT 112: Negative or not required by law. The above report was generated using voice recognition software. It may contain grammatical, syntax o r spelling errors. Electronically signed by: Jose Terry M.D. 09/03/2022 7:59 AM
[2022-09-03 08:32] LABS: Estimated Average Glucose 134 mg/dl; Hemoglobin A1C 6.3 % (4.5-5.6)
[2022-09-03] MEDS: TOLTERODINE TARTRATE LA 2 MG CAPCR PO SCH (08:42)
[2022-09-03] MEDS: POTASSIUM CHLORIDE CRTAB 20 MEQ TABCR PO SCH (08:42)
[2022-09-03] MEDS: METOPROLOL SUCC 25MG EXT REL TAB PO SCH (08:42)
[2022-09-03] MEDS: LEVOTHYROXINE SODIUM 75 MCG TABLET PO SCH (08:42)
[2022-09-03] MEDS: CITALOPRAM 20 MG TAB PO SCH (08:43)
[2022-09-03] MEDS: ATORVASTATIN 40 MG TAB PO SCH (08:43)
[2022-09-03] MEDS: MULTIVITAMIN TAB PO SCH (08:43)
[2022-09-03] MEDS: PANTOprazole 40 MG in SYRINGE 0 ML IV SCH ×2 (08:43→20:35)
[2022-09-03] MEDS ORDERED: FERROUS SULFATE 325 MG TAB PO SCH (09:00)
[2022-09-03] MEDS ORDERED: NON-FORMULARY MEDICATION (Lansoprazole 30 mg capsule,delayed release(DR/EC)) PO SCH (09:00)
[2022-09-03] MEDS ORDERED: LEVOTHYROXINE SODIUM 75 MCG TABLET PO SCH (09:00)
[2022-09-03 09:57] LABS: Hematocrit (blood only) 30.9 % (34.1-44.9); Hemoglobin 8.8 g/dl (12.0-16.0); Mean Corpuscular Hemoglobin 21.3 pg (25.0-34.0); Mean Corpuscular Hgb Conc 28.5 g/dL (32.0-36.0); Mean Corpuscular Volume 74.8 fL (80.0-100.0); Mean Platelet Volume 8.6 fL (9.4-12.3); Nucleated RBC # (auto) 0.19 K/uL (0-0); Nucleated RBC % (auto) 3.2 %; Platelet Count 267 K/uL (130-400); RDW Standard Deviation 58.6 fL (36.4-46.3); Red Blood Count 4.13 M/uL (3.93-5.22); White Blood Count 6.02 K/ul (4.8-10.8)
--- NOTE | 2022-09-03 10:24 | Consultation ---
Date of Consultation September 03, 2022 History of Present Illness Attending Physician: Elizabeth Driver DO History of Present Illness 52 yo F with PMH sig for AVR/MVR, h/o a flutter, h/o stroke on coumadin and ASA admit with anemia. Denied symptoms of over GIB in ER, rectal exam with "faintly hemoccult positive stool." BUN not increased on admit. INR 6 on admit. On potassium supplements, aldactone, SSRI as outpt. Also takes PPI once daily. Overnight, on PPI IV BID, also begun on iron supplements. INR not reversed. Systolic 90's overnight without overt GIB. Hgb 6 --> 9 after 2 units. INR 3.3. PE: comfortable appearing, NAD CV: RRR Resp: CTA Abd: soft Labs reviewed A/P: Anemia -- Plan for [facility] endoscopy next week. Cont IV bolus PPI. Ok to resume anti-coag with heparin drip if needed, as she is at high risk for embolic event. No need to hold anti-plt therapy. Please hold iron in anticipation of cscopy. Full liquids over the weekend. Allergies Allergy/AdvReac Type Severity Reaction Status Date / Time kiwi Allergy SV TONGUE Verified 09/02/22 16:49 SWELLS No Known Drug Allergies Allergy Unknown Unknown Unverified 09/02/22 16:49 Home Medications Medication Instructions Recorded Confirmed Type acyclovir 5 % topical cream 1 applic topical DIRECTED 09/02/22 09/02/22 History aspirin 81 mg tablet,delayed 162 mg PO DAILY 09/02/22 09/02/22 History release atorvastatin 40 mg tablet 40 mg PO QAM 09/02/22 09/02/22 History buspirone 5 mg tablet 5 mg PO BID PRN Anxiety 09/02/22 09/02/22 History citalopram 20 mg tablet 20 mg PO DAILY 09/02/22 09/02/22 History diclofenac sodium 1 % topical gel 2 g topical BID PRN Pain 09/02/22 09/02/22 History gabapentin 100 mg capsule 100 mg PO HS 09/02/22 09/02/22 History lansoprazole 30 mg capsule,delayed 30 mg PO QAM 09/02/22 09/02/22 History release levothyroxine 75 mcg tablet 75 mcg PO QAM 09/02/22 09/02/22 History (Euthyrox) losartan 25 mg tablet 12.5 mg PO QAM 09/02/22 09/02/22 History metformin 500 mg tablet 500 mg PO QAM 09/02/22 09/02/22 History metoprolol succinate 25 mg 25 mg PO DAILY 09/02/22 09/02/22 History tablet,extended release 24 hr multivitamin 1 tab PO DAILY 09/02/22 09/02/22 History potassium chloride 20 mEq 20 meq PO DAILY 09/02/22 09/02/22 History tablet,extended release (K-Tab) spironolactone 25 mg tablet 12.5 mg PO DAILY 09/02/22 09/02/22 History tolterodine 2 mg capsule,extended 2 mg PO DAILY 09/02/22 09/02/22 History release 24 hr torsemide 20 mg tablet 20 mg PO QAM 09/02/22 09/02/22 History torsemide 20 mg tablet 20 mg PO QPM PRN Fluid Retention 09/02/22 09/02/22 History warfarin 5 mg tablet 7.5 mg PO .[id number] 09/02/22 09/02/22 History warfarin 5 mg tablet 10 mg PO .QMON 09/02/22 09/02/22 History Patient History Medical History Atrial flutter DM2 (diabetes mellitus, type 2) GERD (gastroesophageal reflux disease) GIB (gastrointestinal bleeding) H/O Hodgkin's lymphoma "s/p chemo and radiation " HTN (hypertension) Hypothyroidism Mood disorder Obstructive sleep apnea of adult Rheumatic heart disease Severe mitral regurgitation Volume overload Surgical History S/P cholecystectomy Family History Other No pertinent family history in first degree relatives Social History Smoking Status: Current some day smoker Tobacco Type: Cigarettes Age Started Using Tobacco: 34; Age Quit Using Tobacco: 48; packs per day: 1; Number of Years Since Quit: 2; Hx Alcohol Use: Yes Alcohol type: wine Hx Substance Use: No Preferred Language: Dutch Communication Ability: Effective Transport Aircrewman Required: No Beliefs That Will Affect Care: None marital status: Single Current Living Situation: Alone current occupational status: other 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 How many Children do You have: 1 Other Information That Helps Us Care for You: No Feels Safe at Home: Yes Safety Concerns: Feels Safe At This Time Assistive Devices: Cane Results & Data ([facility]) Vital Signs (Past 12 Hours) Vital Signs Temp Pulse Pulse Resp BP BP Pulse Ox 09/03/22 08:00 42 L 09/03/22 08:07 36.7 C 67 20 114/73 96 09/03/22 07:07 36.9 C 68 18 98/60 L 96 09/03/22 06:07 36.5 C 68 16 109/72 95 09/03/22 05:08 36.8 C 68 18 102/70 93 09/03/22 04:37 36.7 C 69 16 97/61 L 94 09/03/22 04:22 36.6 C 68 15 104/63 93 09/03/22 03:59 36.6 C 68 16 102/68 96 09/03/22 02:58 36.9 C 64 20 101/62 96 09/03/22 01:23 36.6 C 65 16 95/61 L 93 09/03/22 00:58 36.7 C 66 16 90/59 L 96 09/02/22 23:58 36.7 C 65 16 89/59 L 95 09/02/22 22:58 36.5 C 68 16 99/65 L 96 09/02/22 22:28 36.8 C 65 16 115/68 94 O2 Del Method 09/03/22 08:00 09/03/22 08:07 09/03/22 07:07 09/03/22 06:07 09/03/22 05:08 09/03/22 04:37 09/03/22 04:22 09/03/22 03:59 09/03/22 02:58 Room Air 09/03/22 01:23 09/03/22 00:58 09/02/22 23:58 09/02/22 22:58 09/02/22 22:28
--- NOTE | 2022-09-03 12:54 | Hospitalist Progress Note ---
Date of Service September 03, 2022 Assessment & Plan (1) Iron deficiency anemia: Plan: Uncertain etiology, pending GI work-up this admission. Continue PPI twice daily. Hold iron supplementation as this consistently causes constipation and patient may need a colonoscopy. Also she recently got a large iron load with 3 units of blood overnight. She is feeling better since blood and is less symptomatic. Continue to trend CBC and continue work-up. Notably she is not actively bleeding. Warfarin was restarted. INR was never reversed in the setting of mechanical valves. She is also on aspirin per recent cardiac guidelines, however this has been held for the time being In setting of severe anemia. We will continue full liquid diet over the weekend per GI request. (2) S/P AVR (aortic valve replacement): (3) S/P MVR (mitral valve replacement): Plan: s/p AVR s/p MVR: Severe valvular disease requiring replacement of mitral valve, tricuspid valve, aortic valve Patient is anticoagulated with warfarin, INR is 3.3. Restarted warfarin and baby aspirin now. No evidence of symptomatic disease including no murmur, chest pain or heart failure. (4) H/O Hodgkin's lymphoma: Plan: Status post ABVD chemotherapy and XRT to her chest. (5) DM2 (diabetes mellitus, type 2): Plan: A1c reflects good control at 6.3. Hold metformin while inpatient and give short acting insulin for carb coverage and correction factor as needed. (6) Hypothyroidism: Plan: Chronic, stable, continue Synthroid replacement per home regimen. (7) HTN (hypertension): Plan: Chronic, stable with some hypotension overnight. Currently antihypertensives are held. We will continue to hold for the time being. (8) DVT prophylaxis: Plan: warfarin with therapeutic INR Full code Disposition-to home after anemia work-up early next week. [facility]ated Discharge Date Admission Date: September 02, 2022 Subjective 52-year-old female with a history of Hodgkin's lymphoma status post ABVD therapy and XRT therapy also status post aortic and mitral valve replacements and tricuspid valve repair in 2020 presents with symptomatic anemia. She reports an improvement in her energy levels since 3 units of blood overnight. Hemoglobin has responded appropriately. She denies any pain but is starving and is requesting food. Per GI plan upper and possibly lower scope early next week. Continue with full liquids. This plan was relayed to her. She reports having an upper endoscopy in the past but has never had a colonoscopy. She denies any overt bleeding or significant bruising. Review of Systems Review of Systems: All systems reviewed negative except as indicated above. Physical Exam Physical Exam: CONSTITUTIONAL: WNWD, vitals as above, generally well- appearing, NAD EYES: normal conjunctivae, no scleral icterus ENT: external ear and nose normal, MMM NECK: trachea midline, RESPIRATORY: clear to auscultation bilaterally, no crackles, rales or wheezes, normal respiratory effort CARDIOVASCULAR: regular rate and rhythm, S1 and 2 heard without murmurs, mechanical click audible, no gallops or rubs, no JVD, no peripheral edema CHEST: inspection of chest was normal GASTROINTESTINAL: soft, nontender, ND, no guarding MUSCULOSKELETAL: strength 5/5 throughout, head is normocephalic and atraumatic SKIN: warm and dry NEUROLOGIC: CN 2-12 grossly intact, no sensory deficit, normal cognition, normal speech, no tremor PSYCHIATRIC: alert cooperative and oriented to person, place and time. Results & Data Results & Data ([facility]) Vital Signs (Past 12 Hours) Vital Signs Temp Pulse Pulse Resp BP BP Pulse Ox 09/03/22 11:28 37.0 C 72 16 114/68 98 09/03/22 08:00 42 L 09/03/22 08:07 36.7 C 67 20 114/73 96 09/03/22 07:07 36.9 C 68 18 98/60 L 96 09/03/22 06:07 36.5 C 68 16 109/72 95 09/03/22 05:08 36.8 C 68 18 102/70 93 09/03/22 04:37 36.7 C 69 16 97/61 L 94 09/03/22 04:22 36.6 C 68 15 104/63 93 09/03/22 03:59 36.6 C 68 16 102/68 96 09/03/22 02:58 36.9 C 64 20 101/62 96 09/03/22 01:23 36.6 C 65 16 95/61 L 93 09/03/22 00:58 36.7 C 66 16 90/59 L 96 O2 Del Method 09/03/22 11:28 09/03/22 08:00 09/03/22 08:07 09/03/22 07:07 09/03/22 06:07 09/03/22 05:08 09/03/22 04:37 09/03/22 04:22 09/03/22 03:59 09/03/22 02:58 Room Air 09/03/22 01:23 09/03/22 00:58 Laboratory Results Short CBC 09/02/22 09/03/22 09/03/22 Range/Units 13:47 02:09 09:48 WBC 6.93 5.78 6.02 (4.8-10.8) K/ul Hgb 6.3 L* 7.3 L 8.8 L (12.0-16.0) g/dl Hct 24.2 L 26.7 L 30.9 L (34.1-44.9) % Plt Count 356 278 267 (130-400) K/uL BMP 09/02/22 09/03/22 13:47 02:09 Sodium 136 137 Potassium 3.5 3.4 L Chloride 101 104 Carbon Dioxide 27 26 BUN 14 13 Creatinine 0.79 0.84 Glucose 100 H 80 Calcium 8.9 8.2 L Liver Function 09/02/22 Range/Units 13:47 Total Bilirubin 1.3 H (0.2-1.0) mg/dl AST 29 (13-39) U/L ALT 21 (7-52) U/L Alkaline Phosphatase 129 H (34-104) U/L Albumin 3.9 (3.4-5.0) gm/dl Urine 09/02/22 Range/Units 13:47 Urine Color Yellow Urine Appearance Cloudy A (Clear) Urine pH 7.0 (4.5-7.5) Ur Specific [place] 1.011 (1.000-1.030) Urine Protein Negative (Negative) Urine Glucose (UA) Negative (Negative) Diagnostic Findings Chest X-Ray 09/03/22 08:00 XR chest 1V portable HISTORY: 52 years-old Female post-operative coughing and wheezing acute cough with wheezing COMPARISON: Chest radiographs 09/02/2022 TECHNIQUE: AP view of the chest FINDINGS: Cardiac silhouette is enlarged. Prior median sternotomy with cardiac valvular p rosthesis. No pneumothorax, large pleural effusion or lobar airspace consolidation. Pulmonary vascular congestion. The bones appear grossly intact. IMPRESSION: Cardiomegaly with pulmonary vascular congestion. ACT 112: Negative or not required by law. The above report was generated using voice recognition software. It may contain grammatical, syntax or spelling errors. Electronically signed by: Jose Terry M.D. 09/03/2022 7:59 AM Medications Administered Current Inpatient Medications Atorvastatin Calcium (Atorvastatin 40 Mg Tab) 40 mg PO QAM HAROLDO Stop: 10/03/22 08:59 Last Admin: 09/03/22 08:43 Dose: 40 mg Buspirone HCl (Buspirone 5 Mg Tab) 5 mg PO BID PRN PRN Reason: Anxiety Stop: 10/02/22 20:32 Citalopram Hydrobromide (Citalopram 20 Mg Tab) 20 mg PO DAILY HAROLDO Stop: 10/03/22 08:59 Last Admin: 09/03/22 08:43 Dose: 20 mg Dextrose (Dextrose 50% 50 Ml Syringe) 25 - 50 ml IV UD PRN; Protocol PRN Reason: Hypoglycemia Protocol Stop: 10/02/22 20:32 Ferrous Sulfate (Ferrous Sulfate 325 Mg Tab) 325 mg PO QAM HAROLDO Stop: 10/03/22 08:59 Last Admin: 09/03/22 08:50 Dose: 325 mg Gabapentin (Gabapentin 100 Mg Cap) 100 mg PO HS HAROLDO Stop: 10/02/22 20:59 Last Admin: 09/02/22 21:37 Dose: 100 mg Glucagon (Glucagon For Inj 1 Mg Vial) 1 mg SQ UD PRN; Protocol PRN Reason: Hypoglycemia Protocol Stop: 10/02/22 20:32 Glucose (Glucose 10 Tab/Tube) 4 - 8 tab PO UD PRN; Protocol PRN Reason: Hypoglycemia Treatment Stop: 10/02/22 20:32 Glucose (Glucose 40% Gel 15 Gm Tube) 15 - 30 gm PO UD PRN; Protocol PRN Reason: Hypoglycemia Protocol Stop: 10/02/22 20:32 Pantoprazole Sodium 40 mg/ (Syringe) 10 mls @ 5 mls/min IV BID HAROLDO Stop: 10/02/22 20:59 Last Admin: 09/03/22 08:43 Dose: 5 mls/min Insulin Aspart (Insulin Aspart Per Unit) 0 units SC ACHS HAROLDO Stop: 10/02/22 20:59 Last Admin: 09/03/22 11:38 Dose: Not Given Levothyroxine Sodium (Levothyroxine Sodium 75 Mcg Tablet) 75 mcg PO DAILYBB HAROLDO Stop: 10/03/22 07:44 Last Admin: 09/03/22 08:42 Dose: 75 mcg Losartan Potassium (Losartan Potassium 25 Mg Tab) 12.5 mg PO QAM HAROLDO Stop: 10/03/22 08:59 Metoprolol Succinate (Metoprolol Succ 25mg Ext Rel Tab) 25 mg PO DAILY HAROLDO Stop: 10/03/22 08:59 Last Admin: 09/03/22 08:42 Dose: 25 mg Miscellaneous (Carbohydrates For Hypoglycemia ) 15 - 30 gm PO UD PRN PRN Reason: Hypoglycemia Protocol Stop: 10/02/22 20:32 Multivitamins (Multivitamin Tab) 1 tab PO DAILY HAROLDO Stop: 10/03/22 08:59 Last Admin: 09/03/22 08:43 Dose: 1 tab Potassium Chloride (Potassium Chloride Crtab 20 Meq Tabcr) 20 meq PO DAILY HAROLDO Stop: 10/03/22 08:59 Last Admin: 09/03/22 08:42 Dose: 20 meq Spironolactone (Spironolactone 12.5 Mg Tab) 12.5 mg PO DAILY HAROLDO Stop: 10/03/22 08:59 Tolterodine Tartrate (Tolterodine Tartrate La 2 Mg Capcr) 2 mg PO DAILY HAROLDO Stop: 10/03/22 08:59 Last Admin: 09/03/22 08:42 Dose: 2 mg Torsemide (Torsemide 20 Mg Tab) 20 mg PO QPM PRN PRN Reason: Fluid Retention Stop: 10/02/22 20:54 Torsemide (Torsemide 20 Mg Tab) 20 mg PO QAM HAROLDO Stop: 10/03/22 08:59 (1) Hypothyroidism Hypothyroidism type: due to non-medication exogenous substances Qualified Code(s): E03.2 - Hypothyroidism due to medicaments and other exogenous substances (2) HTN (hypertension) Hypertension type: unspecified Qualified Code(s): I10 - Essential (primary) hypertension
[2022-09-03] MEDS: WARFARIN SOD 7.5 MG TAB PO SCH (15:55)
[2022-09-03] MEDS: GABAPENTIN 100 MG CAP PO SCH (20:35)
--- NOTE | 2022-09-03 21:02 | Communication Note ---
Date of Service: September 03, 2022 Patient with hematuria complaints as per RN. Urine possibly blood-tinged as per patient. No flank/abdominal pain. Difficult urination today as per patient. U/A wbc 30, negative blood AP Complicated UTI No sepsis for now Follow urine CS, Ceftriaxone
[2022-09-03 21:06] LABS: Appearance Urine Cloudy (Clear); Bacteria Urine Automated 1+ (Negative); Blood Urine Negative (Negative); Color Urine Dark Yellow; Epithelial Cell Urine Auto >30 /lpf (0-5); Glucose Urine UA Negative (Negative); Ketones Urine Negative (Negative); Leukocyte Esterase Urine 2+ (Negative); Nitrite Urine Negative (Negative); Protein Urine Trace (Negative); RBC Urine Automated 0-4 /hpf (0-4); Specific Gravity Urine 1.018 (1.000-1.030); Urobilinogen Urine Positive (Negative); WBC Urine Automated >30 /hpf (0-5); pH Urine 6.5 (4.5-7.5)
[2022-09-03 21:10] LABS: Bilirubin Urine 1+ (Negative)
[2022-09-03 21:15] LABS: Hematocrit (blood only) 31.4 % (34.1-44.9); Hemoglobin 8.8 g/dl (12.0-16.0)
[2022-09-03 21:47] LABS: INR 3.4 (0.9-1.1); Prothrombin Time 33.9 Seconds (9.0-12.0)
[2022-09-04] MEDS: cefTRIAXone SODIUM 2,000 MG in DEXTROSE 5% 50 ML IV SCH (00:56)
[2022-09-04] MEDS: LEVOTHYROXINE SODIUM 75 MCG TABLET PO SCH (06:17)
[2022-09-04 07:57] LABS: Hematocrit (blood only) 29.8 % (34.1-44.9); Hemoglobin 8.5 g/dl (12.0-16.0); Mean Corpuscular Hemoglobin 21.3 pg (25.0-34.0); Mean Corpuscular Hgb Conc 28.5 g/dL (32.0-36.0); Mean Corpuscular Volume 74.5 fL (80.0-100.0); Mean Platelet Volume 9.1 fL (9.4-12.3); Nucleated RBC # (auto) 0.21 K/uL (0-0); Nucleated RBC % (auto) 2.8 %; Platelet Count 281 K/uL (130-400); RDW Coefficient of Variation 22.2 % (11.5-14.5); RDW Standard Deviation 59.5 fL (36.4-46.3); White Blood Count 7.47 K/ul (4.8-10.8)
[2022-09-04] MEDS: POTASSIUM CHLORIDE CRTAB 20 MEQ TABCR PO SCH (08:15)
[2022-09-04] MEDS: TOLTERODINE TARTRATE LA 2 MG CAPCR PO SCH (08:15)
[2022-09-04] MEDS: PANTOprazole 40 MG in SYRINGE 0 ML IV SCH ×2 (08:16→21:22)
[2022-09-04] MEDS: CITALOPRAM 20 MG TAB PO SCH (08:16)
[2022-09-04] MEDS: ATORVASTATIN 40 MG TAB PO SCH (08:16)
[2022-09-04] MEDS: ASPIRIN 81 MG ECTAB PO SCH (08:16)
[2022-09-04] MEDS: METOPROLOL SUCC 25MG EXT REL TAB PO SCH (08:16)
[2022-09-04] MEDS: MULTIVITAMIN TAB PO SCH (08:16)
[2022-09-04] MEDS: INSULIN ASPART PER UNIT SC SCH ×4 (08:21→21:10)
[2022-09-04 08:24] LABS: INR 3.7 (0.9-1.1); Prothrombin Time 36.7 Seconds (9.0-12.0)
[2022-09-04 08:26] LABS: BUN Creatinine Ratio 17.6 (10-20); Calcium 8.6 mg/dl (8.5-10.1); Creatinine Clr Calc Pharmacy 103.3 ml/min; Est GFR (African American) 115.7 ml/min; Est GFR (Non-African American) 99.9 ml/min; Potassium 3.9 mmol/L (3.5-5.1)
--- NOTE | 2022-09-04 14:48 | Progress Note ---
Date of Service September 04, 2022 Assessment & Plan Admission and Anticipated Discharge Date Admission Date: September 02, 2022 Subjective No complaints. No gross GIB. Hgb stable. INR 3.7. A/P: EGD/csocpy tomorrow. Will check INR in am. I asked hospitalist to consider small dose of vit K today. Results & Data ([facility]) Vital Signs (Past 12 Hours) Vital Signs Temp Pulse Pulse Resp BP Pulse Ox O2 Del Method 09/04/22 12:00 36.8 C 87 16 114/79 97 09/04/22 09:00 36.8 C 68 20 114/65 97 09/04/22 07:14 69 09/04/22 03:09 37.1 C 74 18 101/63 94 Room Air
[2022-09-04] MEDS ORDERED: LAVAGE SOLUTION 4000ML PO SCH (15:30)
[2022-09-04] MEDS ORDERED: PHYTONADIONE 5 MG TAB PO ONE (18:15)
[2022-09-04] MEDS ORDERED: bisacodyL 5 MG TABEC PO ONE ×2 (18:45→21:15)
--- NOTE | 2022-09-04 21:06 | Hospitalist Progress Note ---
Date of Service September 04, 2022 Assessment & Plan (1) Iron deficiency anemia: Plan: Symptomatic anemia Present on admission with low hemoglobin. She has been having fatigue and shortness of breath Hemoglobin on admission 6.3 No active bleeding but FOBT faintly positive Received 3 unit of PRBC Hemoglobin today for the GI on board plan for EGD and colonoscopy tomorrow Case discussed with gastro that would prefer INR to be 2, no need for vitamin K if 2.5 for the EGD and colonoscopy INR 3.7 today, will give a low-dose of vitamin K to get ready for the scope tomorrow Coumadin on hold for colonoscopy and EGD tomorrow Currently on clear liquid diet. Will make n.p.o. after midnight (2) S/P AVR (aortic valve replacement): (3) S/P MVR (mitral valve replacement): Plan: s/p AVR s/p MVR: Severe valvular disease requiring replacement of mitral valve, tricuspid valve, aortic valve Patient is anticoagulated with warfarin, INR is 3.7. No evidence of symptomatic disease including no murmur, chest pain or heart failure. Will hold tomorrow Coumadin today since patient planned for scope tomorrow Low-dose of vitamin K 2.5 given in the preparation for the scope Consider to start on IV heparin drip after the scope if INR below 2.5 (4) H/O Hodgkin's lymphoma: Plan: Status post ABVD chemotherapy and XRT to her chest. (5) Dysuria: Plan: Complaint of dysuria urine UA positive for Leukocyte and bacteria Repeat urine cx grew pinpoint so far Continue IV abx with ceftriaxone (6) DM2 (diabetes mellitus, type 2): Plan: A1c reflects good control at 6.3. Continue to Hold metformin while inpatient and give short acting insulin for carb coverage and correction factor as needed. Continue monitor blood sugar (7) Hypothyroidism: Plan: Chronic, stable continue Synthroid replacement per home regimen. (8) HTN (hypertension): Plan: Chronic, stable with some hypotension overnight. Currently antihypertensives are held. We will continue to hold for the time being during the prep for the colonoscopy (9) DVT prophylaxis: Plan: On Coumadin with with INR 3.7 today Full code Disposition plan to discharge home Admission and Anticipated Discharge Date Admission Date: September 02, 2022 Subjective Patient was seen and examined for follow-up of anemia Sitting in at the edge of the bed with no acute distress Patient says her energy and breathing improved Denies any GI bleed, palpitation, dizziness, chest pain Review of Systems Review of Systems: All systems reviewed & are unremarkable except as noted in Subjective Physical Exam Physical Exam: General- No acute distress Head- atraumatic Eyes- PERRL, EOMI, ENT- oropharynx clear Neck- supple, no JVD Lungs- clear to auscultation Heart- regular rhythm; mechanical click audible, Abdomen- normal bowel sounds, soft, nontender Extremities- no calf tenderness Neuro- alert, oriented x 3; PERRL, EOMI; no facial palsy; no dysarthria Skin- warm & dry Results & Data Results & Data ([facility]) Vital Signs (Past 12 Hours) Vital Signs Temp Pulse Pulse Resp BP Pulse Ox O2 Del Method 09/04/22 19:00 36.8 C 76 20 136/85 100 Room Air 09/04/22 17:00 36.9 C 78 20 97/62 L 99 09/04/22 16:43 68 09/04/22 12:00 36.8 C 87 16 114/79 97 (1) Hypothyroidism Hypothyroidism type: due to non-medication exogenous substances Qualified Code(s): E03.2 - Hypothyroidism due to medicaments and other exogenous substances (2) HTN (hypertension) Hypertension type: unspecified Qualified Code(s): I10 - Essential (primary) hypertension
[2022-09-04] MEDS: GABAPENTIN 100 MG CAP PO SCH (21:22)
[2022-09-05] MEDS: cefTRIAXone SODIUM 2,000 MG in DEXTROSE 5% 50 ML IV SCH (00:18)
[2022-09-05] MEDS: LEVOTHYROXINE SODIUM 75 MCG TABLET PO SCH (06:02)
[2022-09-05 06:14] LABS: Hematocrit (blood only) 28.2 % (34.1-44.9); Hemoglobin 8.1 g/dl (12.0-16.0); Mean Corpuscular Hemoglobin 21.7 pg (25.0-34.0); Mean Corpuscular Hgb Conc 28.7 g/dL (32.0-36.0); Mean Corpuscular Volume 75.4 fL (80.0-100.0); Mean Platelet Volume 8.8 fL (9.4-12.3); Nucleated RBC % (auto) 1.4 %; Platelet Count 241 K/uL (130-400); RDW Coefficient of Variation 22.4 % (11.5-14.5); Red Blood Count 3.74 M/uL (3.93-5.22); White Blood Count 7.28 K/ul (4.8-10.8)
[2022-09-05 07:03] LABS: INR 4.4 (0.9-1.1); Prothrombin Time 43.1 Seconds (9.0-12.0)
[2022-09-05] MEDS ORDERED: PHYTONADIONE 2.5 MG in DEXTROSE 5% 50 ML IV ONE ×2 (08:00→09:00)
[2022-09-05] MEDS: INSULIN ASPART PER UNIT SC SCH ×4 (08:34→21:01)
[2022-09-05] MEDS: POTASSIUM CHLORIDE CRTAB 20 MEQ TABCR PO SCH (08:37)
[2022-09-05] MEDS: ATORVASTATIN 40 MG TAB PO SCH (08:38)
[2022-09-05] MEDS: CITALOPRAM 20 MG TAB PO SCH (08:38)
[2022-09-05] MEDS: METOPROLOL SUCC 25MG EXT REL TAB PO SCH (08:38)
[2022-09-05] MEDS: MULTIVITAMIN TAB PO SCH (08:38)
[2022-09-05] MEDS: TOLTERODINE TARTRATE LA 2 MG CAPCR PO SCH (08:38)
[2022-09-05] MEDS: ASPIRIN 81 MG ECTAB PO SCH (08:38)
[2022-09-05] MEDS: PANTOprazole 40 MG in SYRINGE 0 ML IV SCH ×2 (09:03→21:01)
[2022-09-05] MEDS ORDERED: ACETAMINOPHEN 1,000 MG/100 ML VIAL IV ONE (10:30)
[2022-09-05] MEDS ORDERED: SODIUM CHLORIDE 0.9% 500 ML IV SCH (12:00)
[2022-09-05 13:05] LABS: INR 3.7 (0.9-1.1); Prothrombin Time 36.9 Seconds (9.0-12.0)
--- NOTE | 2022-09-05 14:15 | Gastroenterology Progress Note ---
Date of Service September 05, 2022 Assessment & Plan Admission and Anticipated Discharge Date Admission Date: September 02, 2022 Subjective INR is still above 2 hence will not be able to perform the procedure. Please correct her INR today and will plan for the procedure tomorrow. Results & Data ([facility]) Vital Signs (Past 12 Hours) Vital Signs Temp Pulse Pulse Resp BP Pulse Ox O2 Del Method 09/05/22 11:07 36.6 C 69 18 92/57 L 95 Room Air 09/05/22 10:53 36.8 C 75 16 99/63 L 95 Room Air 09/05/22 10:04 76 15 97/60 L 93 Room Air 09/05/22 09:28 36.6 C 75 16 101/67 90 Room Air 09/05/22 09:09 36.6 C 72 16 123/80 95 Room Air 09/05/22 07:29 36.7 C 74 18 105/69 93 Room Air 09/05/22 07:05 77 09/05/22 03:00 36.5 C 76 18 116/60 90 Room Air
[2022-09-05] MEDS ORDERED: LAVAGE SOLUTION 4000ML PO SCH (18:00)
--- NOTE | 2022-09-05 20:39 | Hospitalist Progress Note ---
Date of Service September 05, 2022 Assessment & Plan (1) Iron deficiency anemia: Plan: Symptomatic anemia Present on admission with low hemoglobin. She has been having fatigue and shortness of breath Hemoglobin on admission 6.3 No active bleeding but FOBT faintly positive Received 3 unit of PRBC during hospital course, hgb 8.1 today Hemoglobin today for the GI on board plan for EGD and colonoscopy tomorrow Case discussed with gastro that would prefer INR to be 2, no need for vitamin K if 2.5 for the EGD and colonoscopy Scope cancelled due to INR 3.7 after vitamin K Coumadin on hold for colonoscopy and EGD tomorrow Will make n.p.o. after midnight (2) S/P AVR (aortic valve replacement): (3) S/P MVR (mitral valve replacement): Plan: s/p AVR s/p MVR: Severe valvular disease requiring replacement of mitral valve, tricuspid valve, aortic valve Patient is anticoagulated with warfarin, INR is 3.7. No evidence of symptomatic disease including no murmur, chest pain or heart fa ilure. Will hold tomorrow Coumadin today since patient planned for scope tomorrow Low-dose of vitamin K 2.5 given in the preparation for the scope Consider to start on IV heparin drip after the scope (4) H/O Hodgkin's lymphoma: Plan: Status post ABVD chemotherapy and XRT to her chest. (5) Dysuria: Plan: Complaint of dysuria urine UA positive for Leukocyte and bacteria Repeat urine cx grew pinpoint so far On IV abx with ceftriaxone (6) DM2 (diabetes mellitus, type 2): Plan: A1c reflects good control at 6.3. Continue to Hold metformin while inpatient and give short acting insulin for carb coverage and correction factor as needed. Continue monitor blood sugar (7) Hypothyroidism: Plan: Chronic, stable continue Synthroid replacement per home regimen. (8) HTN (hypertension): Plan: Chronic, stable with some hypotension overnight. Currently antihypertensives are held. We will continue to hold for the time being during the prep for the colonoscopy (9) DVT prophylaxis: Plan: Coumadin on hold with with INR 3.7 today Full code Disposition plan to discharge home Admission and Anticipated Discharge Date Admission Date: September 02, 2022 Subjective Pt was seen and examined for low hgb Sitting in chair with no acute distress Pt has been NPO for colonoscopy unfortunately scope was cancelled due to INR 3.7 Denies any chest pain, palpitation, dizziness and SOB Review of Systems Review of Systems: All systems reviewed & are unremarkable except as noted in Subjective Physical Exam Physical Exam: General- No acute distress Head- atraumatic Eyes- PERRL, EOMI, ENT- oropharynx clear Neck- supple, no JVD Lungs- clear to auscultation Heart- regular rhythm; mechanical click audible, Abdomen- normal bowel sounds, soft, nontender Extremities- no calf tenderness Neuro- alert, oriented x 3; PERRL, EOMI; no facial palsy; no dysarthria Skin- warm & dry Results & Data Results & Data ([facility]) Vital Signs (Past 12 Hours) Vital Signs Temp Pulse Pulse Resp BP Pulse Ox O2 Del Method 09/05/22 20:05 36.7 C 66 18 130/82 95 Room Air 09/05/22 18:27 67 09/05/22 16:36 36.6 C 66 18 111/69 93 Room Air 09/05/22 11:07 36.6 C 69 18 92/57 L 95 Room Air 09/05/22 10:53 36.8 C 75 16 99/63 L 95 Room Air 09/05/22 10:04 76 15 97/60 L 93 Room Air 09/05/22 09:28 36.6 C 75 16 101/67 90 Room Air 09/05/22 09:09 36.6 C 72 16 123/80 95 Room Air (1) Hypothyroidism Hypothyroidism type: due to non-medication exogenous substances Qualified Code(s): E03.2 - Hypothyroidism due to medicaments and other exogenous substances (2) HTN (hypertension) Hypertension type: unspecified Qualified Code(s): I10 - Essential (primary) hypertension
[2022-09-05] MEDS: GABAPENTIN 100 MG CAP PO SCH (21:01)
[2022-09-06] MEDS: cefTRIAXone SODIUM 2,000 MG in DEXTROSE 5% 50 ML IV SCH (00:22)
[2022-09-06 05:52] LABS: Hematocrit (blood only) 28.4 % (34.1-44.9); Mean Corpuscular Hemoglobin 21.4 pg (25.0-34.0); Mean Corpuscular Hgb Conc 28.2 g/dL (32.0-36.0); Mean Corpuscular Volume 75.9 fL (80.0-100.0); Mean Platelet Volume 9.3 fL (9.4-12.3); Nucleated RBC # (auto) 0.11 K/uL (0-0); Nucleated RBC % (auto) 1.4 %; Platelet Count 242 K/uL (130-400); RDW Coefficient of Variation 23.4 % (11.5-14.5); RDW Standard Deviation 62.5 fL (36.4-46.3); Red Blood Count 3.74 M/uL (3.93-5.22); White Blood Count 7.67 K/ul (4.8-10.8)
[2022-09-06] MEDS: LEVOTHYROXINE SODIUM 75 MCG TABLET PO SCH (06:03)
[2022-09-06 06:11] LABS: BUN Creatinine Ratio 14.8 (10-20); Calcium 8.7 mg/dl (8.5-10.1); Creatinine Clr Calc Pharmacy 116.6 ml/min; Est GFR (Non-African American) 103.5 ml/min; Potassium 3.7 mmol/L (3.5-5.1)
[2022-09-06 06:52] LABS: INR 1.7 (0.9-1.1); Partial Thromboplastin Ratio 1.2; Partial Thromboplastin Time 33.2 Seconds (21.0-31.0); Prothrombin Time 17.5 Seconds (9.0-12.0)
[2022-09-06] MEDS: METOPROLOL SUCC 25MG EXT REL TAB PO SCH (08:14)
[2022-09-06] MEDS: POTASSIUM CHLORIDE CRTAB 20 MEQ TABCR PO SCH (08:14)
[2022-09-06] MEDS: TOLTERODINE TARTRATE LA 2 MG CAPCR PO SCH (08:14)
[2022-09-06] MEDS: MULTIVITAMIN TAB PO SCH (08:14)
[2022-09-06] MEDS: INSULIN ASPART PER UNIT SC SCH ×4 (08:14→22:35)
[2022-09-06] MEDS: CITALOPRAM 20 MG TAB PO SCH (08:15)
[2022-09-06] MEDS: ASPIRIN 81 MG ECTAB PO SCH (08:15)
[2022-09-06] MEDS: ATORVASTATIN 40 MG TAB PO SCH (08:15)
[2022-09-06] MEDS: PANTOprazole 40 MG in SYRINGE 0 ML IV SCH ×2 (08:15→20:08)
--- NOTE | 2022-09-06 09:22 | History & Physical Bridge Note ---
Date of Service September 06, 2022 History & Physical Bridge Note I have examined the patient, reviewed the History & Physical and in the interval since the performance of the History & Physical I have noted the following changes of clinical significance: no changes noted EGD/colonoscopy Patient was explained in detail regarding risks, benefits, limitations and alternatives of the above endoscopic procedure. Risks of intravenous sedation used for procedure were also explained. Risks include, but not limited to perforation, bleeding, infection, respiratory distress, cardiac arrest and . Patient is also aware about the possibility of missed lesion. Patient's questions were answered. The patient verbalized understanding the information and agreed to undergo the procedure.
[2022-09-06] MEDS ORDERED: PROPOFOL IV EMULSION 10 MG/ML 20 ML VIAL IV ONE ×2 (09:24→10:15)
[2022-09-06] MEDS ORDERED: LIDOCAINE 2% MPF LOCAL 5 ML VIAL INFIL ONE ×2 (09:24→10:15)
--- NOTE | 2022-09-06 10:11 | Anesthesiology Consultation ---
Date of Service September 06, 2022 Assessment & Plan (1) Encounter for pre-operative examination: Chart Review Chart Review: Acceptable Risk for Surgery, Patient NOT seen in Pre Admission Testing and entry table operator initiated Consults Requested none Proposed Anesthesia Risk / Benefits Reviewed With: PT / POA / Parent / Guardian, Accepts Plan and Informed Consent Obtained History Surgery Operation Date: 09/06/22 16:45 Proposed Procedures p Colonoscopy EGD Dr. Rodrigues - Horace Rodrigues MD Height/Weight Height: 5 ft 2 in Weight: 98 kg Allergies Allergy/AdvReac Type Severity Reaction Status Date / Time kiwi Allergy SV TONGUE Verified 09/02/22 16:49 SWELLS No Known Drug Allergies Allergy Unknown Unknown Unverified 09/02/22 16:49 Medications Home Medications Medication Instructions Recorded Confirmed Last Taken acyclovir 5 % topical cream 1 applic topical DIRECTED 09/02/22 09/02/22 Unknown aspirin 81 mg tablet,delayed 162 mg PO DAILY 09/02/22 09/02/22 Unknown release atorvastatin 40 mg tablet 40 mg PO QAM 09/02/22 09/02/22 Unknown buspirone 5 mg tablet 5 mg PO BID PRN Anxiety 09/02/22 09/02/22 Unknown citalopram 20 mg tablet 20 mg PO DAILY 09/02/22 09/02/22 Unknown diclofenac sodium 1 % topical gel 2 g topical BID PRN Pain 09/02/22 09/02/22 Unknown gabapentin 100 mg capsule 100 mg PO HS 09/02/22 09/02/22 Unknown lansoprazole 30 mg capsule,delayed 30 mg PO QAM 09/02/22 09/02/22 Unknown release levothyroxine 75 mcg tablet 75 mcg PO QAM 09/02/22 09/02/22 Unknown (Euthyrox) losartan 25 mg tablet 12.5 mg PO QAM 09/02/22 09/02/22 Unknown metformin 500 mg tablet 500 mg PO QAM 09/02/22 09/02/22 Unknown metoprolol succinate 25 mg 25 mg PO DAILY 09/02/22 09/02/22 Unknown tablet,extended release 24 hr multivitamin 1 tab PO DAILY 09/02/22 09/02/22 Unknown potassium chloride 20 mEq 20 meq PO DAILY 09/02/22 09/02/22 Unknown tablet,extended release (K-Tab) spironolactone 25 mg tablet 12.5 mg PO DAILY 09/02/22 09/02/22 Unknown tolterodine 2 mg capsule,extended 2 mg PO DAILY 09/02/22 09/02/22 Unknown release 24 hr torsemide 20 mg tablet 20 mg PO QAM 09/02/22 09/02/22 Unknown torsemide 20 mg tablet 20 mg PO QPM PRN Fluid Retention 09/02/22 09/02/22 Unknown warfarin 5 mg tablet 7.5 mg PO .[id number] 09/02/22 09/02/22 09/01/22 19:30 warfarin 5 mg tablet 10 mg PO .QMON 09/02/22 09/02/22 Unknown Active Medications Generic Name Dose Route Start Last Admin Trade Name Freq PRN Reason Stop Dose Admin Aspirin 81 mg 09/04/22 09:00 09/06/22 08:15 Aspirin 81 Mg Ectab PO 10/04/22 08:59 81 mg QAM HAROLDO Administration Atorvastatin Calcium 40 mg 09/03/22 09:00 09/06/22 08:15 Atorvastatin 40 Mg Tab PO 10/03/22 08:59 40 mg QAM HAROLDO Administration Citalopram Hydrobromide 20 mg 09/03/22 09:00 09/06/22 08:15 Citalopram 20 Mg Tab PO 10/03/22 08:59 20 mg DAILY HAROLDO Administration Gabapentin 100 mg 09/02/22 21:00 09/05/22 21:01 Gabapentin 100 Mg Cap PO 10/02/22 20:59 100 mg HS HAROLDO Administration Pantoprazole Sodium 40 mg/ 10 mls @ 5 mls/min 09/02/22 21:00 09/06/22 08:15 Syringe IV 10/02/22 20:59 5 mls/min BID HAROLDO Administration Ceftriaxone Sodium 2,000 mg/ 70 mls @ 100 mls/hr 09/04/22 00:30 09/06/22 00:59 Dextrose IV 09/14/22 00:29 Infused Q24H HAROLDO Infusion Protocol Sodium Chloride 500 mls @ 40 mls/hr 09/05/22 12:00 09/05/22 21:05 Nss IV 09/06/22 10:26 Infused .[id number] HAROLDO Infusion Insulin Aspart 0 units 09/02/22 21:00 09/06/22 08:14 Insulin Aspart Per Unit SC 10/02/22 20:59 Not Given ACHS HAROLDO Levothyroxine Sodium 75 mcg 09/03/22 07:45 09/06/22 06:03 Levothyroxine Sodium 75 Mcg Tablet PO 10/03/22 07:44 75 mcg DAILYBB HAROLDO Administration Metoprolol Succinate 25 mg 09/03/22 09:00 09/06/22 08:14 Metoprolol Succ 25mg Ext Rel Tab PO 10/03/22 08:59 25 mg DAILY HAROLDO Administration Multivitamins 1 tab 09/03/22 09:00 09/06/22 08:14 Multivitamin Tab PO 10/03/22 08:59 1 tab DAILY HAROLDO Administration Potassium Chloride 20 meq 09/03/22 09:00 09/06/22 08:14 Potassium Chloride Crtab 20 Meq Tabcr PO 10/03/22 08:59 20 meq DAILY HAROLDO Administration Tolterodine Tartrate 2 mg 09/03/22 09:00 09/06/22 08:14 Tolterodine Tartrate La 2 Mg Capcr PO 10/03/22 08:59 2 mg DAILY HAROLDO Administration Warfarin Sodium 7.5 mg 09/03/22 16:00 09/03/22 15:55 Warfarin Sod 7.5 Mg Tab PO 10/03/22 15:59 7.5 mg DAILY@1600 HAROLDO Administration NPO Date Last Intake of Fluids: 09/06/22 Time Last Intake of Fluids: 07:30 Date Last Intake of Solids: 09/01/22 Time Last Intake of Solids: 18:00 Past Medical History Medical History (Updated 09/06/22 @ 10:12 by Randal Kingston MD) Atrial flutter DM2 (diabetes mellitus, type 2) Encounter for pre-operative examination GERD (gastroesophageal reflux disease) GIB (gastrointestinal bleeding) H/O Hodgkin's lymphoma "s/p chemo and radiation " HTN (hypertension) Hypothyroidism Mood disorder Obstructive sleep apnea of adult Rheumatic heart disease Severe mitral regurgitation Volume overload Past Family History Family History Other No pertinent family history in first degree relatives Past Surgical History Surgical History S/P cholecystectomy Social History Smoking Status: Current some day smoker tobacco type: cigarettes Hx Alcohol Use: Yes Alcohol type: wine alcohol intake frequency: 0-2 drinks per day Hx Substance Use: No Physical Exam Vital Signs Last Vital Signs Temp 36.6 C 09/06/22 09:33 Pulse 69 09/06/22 09:33 Resp 20 09/06/22 09:33 BP 129/83 09/06/22 09:33 Pulse Ox 97 09/06/22 09:33 O2 Del Method 09/06/22 09:33 Testing Laboratory Results 09/06/22 05:20 09/06/22 05:20 PT 17.5 Seconds (9.0-12.0) H 09/06/22 05:20 INR 1.7 (0.9-1.1) H 09/06/22 05:20 APTT 33.2 Seconds (21.0-31.0) H 09/06/22 05:20 Hemoglobin A1c 6.3 % (4.5-5.6) H 09/03/22 02:09 Urine Color Dark Yellow 09/03/22 20:53 Urine Appearance Cloudy (Clear) A 09/03/22 20:53 Urine pH 6.5 (4.5-7.5) 09/03/22 20:53 Ur Specific [place] 1.018 (1.000-1.030) 09/03/22 20:53 Urine Protein Trace (Negative) H 09/03/22 20:53 Urine Glucose (UA) Negative (Negative) 09/03/22 20:53 Urine Ketones Negative (Negative) 09/03/22 20:53 Urine Nitrite Negative (Negative) 09/03/22 20:53 Ur Leukocyte Esterase 2+ (Negative) H 09/03/22 20:53 Urine WBC (Auto) >30 /hpf (0-5) H 09/03/22 20:53 Urine RBC (Auto) 0-4 /hpf (0-4) 09/03/22 20:53 U Hyaline Cast (Auto) 1-5 /lpf (0-5) 09/03/22 20:53 U Epithel Cells (Auto) >30 /lpf (0-5) H 09/03/22 20:53 Urine Bacteria (Auto) 1+ (Negative) H 09/03/22 20:53 Urine Test Negative (Negative) 09/02/22 13:47 Blood Type O Negative 09/02/22 14:21 Antibody Screen NEGATIVE 09/02/22 14:21 09/03/22 20:53 Urine Culture - Final Urine,Clean Catch More than three types of organisms present, all moderate counts mixed probable skin eliana. No further identifications or sensitivities to follow. 09/02/22 13:47 Urine Culture - Final Urine,Clean Catch More than three types of organisms present, all moderate counts mixed probable skin eliana. No further identifications or sensitivities to follow. 09/06/22 09/06/22 06:37 00:02 POC Glucose 82 82 09/02/22 13:47 Urine Test Negative Electrocardiogram Date: 09/02/22 Test Reason : Blood Pressure : / mmHG Vent. Rate : 083 BPM Atrial Rate : 083 BPM P-R Int : 206 ms QRS Dur : 140 ms QT Int : 464 ms P-R-T Axes : 068 -36 113 degrees QTc Int : 545 ms Normal sinus rhythm Left axis deviation Left bundle branch block Abnormal ECG When compared with ECG of 17-JAN-2021 10:02, QRS axis Shifted left Confirmed by [place] ([id number]) on 09/02/2022 6:24:01 PM Chest X-Ray Date: 09/03/22 XR chest 1V portable HISTORY: 52 years-old Female post-operative coughing and wheezing acute cough with wheezing COMPARISON: Chest radiographs 09/02/2022 TECHNIQUE: AP view of the chest FINDINGS: Cardiac silhouette is enlarged. Prior median sternotomy with cardiac valvular prosthesis. No pneumothorax, large pleural effusion or lobar airspace consolidation. Pulmonary vascular congestion. The bones appear grossly intact. IMPRESSION: Cardiomegaly with pulmonary vascular congestion.
[2022-09-06] MEDS ORDERED: PHENYLEPHRINE 100MCG/ML 5ML SYR ONE (10:42)
--- NOTE | 2022-09-06 10:50 | GI REPORT ---
Patient Name: Shobha Cabrera Procedure Date: 09/06/2022 10:05 AM Date of : 1970 Admit Type: Inpatient Age: 52 Gender: Female Attending MD: Horace Rodrigues MD Procedure: Upper GI endoscopy Providers: Horace Rodrigues MD Referring MD: KISHOR PIEDRA Indications: Anemia Medicines: Propofol per Anesthesia Complications: No immediate complications. Estimated Blood Loss: Estimated blood loss: none. Procedure: Pre-Anesthesia Assessment: - Prior to the procedure, a History and Physical was performed, and patient medications, allergies and sensitivities were reviewed. The patient's tolerance of previous anesthesia was reviewed. - The risks and benefits of the procedure and the sedation options and risks were discussed with the patient. All questions were answered and informed consent was obtained. - Patient identification and proposed procedure were verified prior to the procedure by the physician and the nurse. The procedure was verified in the procedure room. - Pre-procedure physical examination revealed no contraindications to sedation. After obtaining informed consent, the endoscope was passed under direct vision. Throughout the procedure, the patient's blood pressure, pulse, and oxygen saturations were monitored continuously. The Scope was introduced through the mouth, and advanced to the third part of duodenum. The upper GI endoscopy was accomplished without difficulty. The patient tolerated the procedure well. Findings: The examined esophagus was normal. The entire examined stomach was normal. The duodenal bulb and second portion of the duodenum were normal. Impression: - Normal esophagus. - Normal stomach. - Normal duodenal bulb and second portion of the duodenum. - No specimens collected. Recommendation: - Perform a colonoscopy today. Horace Rodrigues MD 09/06/2022 10:50:23 AM This report has been signed electronically. Note Initiated On: 09/06/2022 10:05 AM Number of Addenda: 0 I attest to the content of the Intraoperative Record and orders documented therein, exceptions below {[id number]}
--- NOTE | 2022-09-06 10:53 | GI REPORT ---
Patient Name: Shobha Cabrera Procedure Date: 09/06/2022 10:05 AM Date of : 1970 Admit Type: Inpatient Age: 52 Gender: Female Attending MD: Horace Rodrigues MD Procedure: Colonoscopy Providers: Horace Rodrigues MD Referring MD: KISHOR PIEDRA Indications: Anemia Medicines: Propofol per Anesthesia Complications: No immediate complications. Estimated Blood Loss: Estimated blood loss: none. Procedure: Pre-Anesthesia Assessment: - Prior to the procedure, a History and Physical was performed, and patient medications, allergies and sensitivities were reviewed. The patient's tolerance of previous anesthesia was reviewed. - The risks and benefits of the procedure and the sedation options and risks were discussed with the patient. All questions were answered and informed consent was obtained. - Patient identification and proposed procedure were verified prior to the procedure by the physician and the nurse. The procedure was verified in the procedure room. - Pre-procedure physical examination revealed no contraindications to sedation. After I obtained informed consent, the scope was passed under direct vision. Throughout the procedure, the patient's blood pressure, pulse, and oxygen saturations were monitored continuously. The Colonoscope was introduced through the anus and advanced to the cecum, identified by appendiceal orifice and ileocecal valve. The colonoscopy was performed without difficulty. The patient tolerated the procedure well. The quality of the bowel preparation was fair. The ileocecal valve, appendiceal orifice, and rectum were photographed. Findings: The perianal and digital rectal examinations were normal. Scattered small and large-mouthed diverticula were found in the sigmoid colon. The retroflexed view of the distal rectum and anal verge was normal and showed no anal or rectal abnormalities. Impression: - Preparation of the colon was fair. - Diverticulosis in the sigmoid colon. - The distal rectum and anal verge are normal on retroflexion view. - No specimens collected. Recommendation: - Return patient to [facility] for ongoing care. - Resume AC. - Repeat colonoscopy in 1 year for screening purposes. - Recall GI if needed. Horace Rodrigues MD 09/06/2022 10:52:28 AM This report has been signed electronically. Note Initiated On: 09/06/2022 10:05 AM Number of Addenda: 0 I attest to the content of the Intraoperative Record and orders documented therein, exceptions below {[id number]}
[2022-09-06] MEDS ORDERED: Heparin IV Adult Wt-Based Standard *NO* Bolus Protocol IV ONE (10:55)
[2022-09-06] MEDS: HEPARIN SODIUM/DEXTROSE 25,000 UNITS/500 ML BAG IV SCH (13:12)
--- NOTE | 2022-09-06 13:49 | Anesthesiology Progress Note ---
Date of Service September 06, 2022 Anesthesia Post Procedure Vital Signs Vital Signs: Temp Pulse Pulse Resp BP Pulse Ox O2 Del Method 09/06/22 12:03 36.9 C 73 18 127/83 97 Room Air 09/06/22 11:21 62 16 114/71 94 Room Air 09/06/22 11:07 63 16 98/58 L 94 Room Air 09/06/22 10:51 37 C 65 14 94/47 L 93 Room Air 09/06/22 09:33 36.6 C 69 20 129/83 97 Room Air 09/06/22 07:38 36.6 C 74 18 111/73 92 Room Air 09/06/22 07:13 75 09/06/22 02:51 36.6 C 71 22 126/83 91 Room Air 09/05/22 22:51 69 09/05/22 22:35 36.7 C 71 18 114/75 92 Room Air 09/05/22 20:05 36.7 C 66 18 130/82 95 Room Air 09/05/22 18:27 67 09/05/22 16:36 36.6 C 66 18 111/69 93 Room Air Transfer of Care Handoff Completed per policy Notes Mental Status: alert / awake / arousable and participated in evaluation Patient Amnestic to Procedure: Yes Nausea / Vomiting: adequately controlled Pain: adequately controlled Airway Patency, RR, SpO2: stable & adequate BP & HR: stable & adequate Hydration State: stable & adequate Anesthetic Complications: no major complications apparent and Pt Satisfied with anesthetic care
[2022-09-06] MEDS ORDERED: WARFARIN SOD 7.5 MG TAB PO SCH (16:00)
[2022-09-06] MEDS: GABAPENTIN 100 MG CAP PO SCH (20:08)
[2022-09-06 20:23] LABS: Partial Thromboplastin Ratio 1.8
[2022-09-06 20:42] LABS: Partial Thromboplastin Time 49.5 Seconds (21.0-31.0)
--- NOTE | 2022-09-06 22:34 | Hospitalist Progress Note ---
Date of Service September 06, 2022 Assessment & Plan (1) Iron deficiency anemia: Plan: Symptomatic anemia Present on admission with low hemoglobin. She has been having fatigue and shortness of breath Hemoglobin on admission 6.3 No active bleeding but FOBT faintly positive Received 3 unit of PRBC during hospital course, hgb 8.1 today Hemoglobin today for the GI on board plan for EGD and colonoscopy tomorrow Case discussed with gastro that would prefer INR to be 2, no need for vitamin K if 2.5 for the EGD and colonoscopy Scope cancelled due to INR 3.7 after vitamin K Coumadin on hold for colonoscopy and EGD tomorrow 09/06/22 Hgb 8 today and INR 1.7 S/P EGD showed normal esophagus. Normal stomach. Normal duodenal bulb and second portion of the duodenum. S/P colonoscopy showed scattered small and large-mouthed diverticula were found in the sigmoid colon. She will need a repeat colonoscopy in 1 yr Case discussed with lissette Pinedo to start anticoagulant Continue monitor Hgb (2) S/P AVR (aortic valve replacement): (3) S/P MVR (mitral valve replacement): Plan: s/p AVR s/p MVR: Severe valvular disease requiring replacement of mitral valve, tricuspid valve, aortic valve Received Vit K for the preparation of scope INR 1.7 today Started on IV heparin drip bridge Coumadin 7.5 mg resume (4) H/O Hodgkin's lymphoma: Plan: Status post ABVD chemotherapy and XRT to her chest. (5) Dysuria: Plan: Complaint of dysuria urine UA positive for Leukocyte and bacteria Repeat urine cx grew multi organisms (contamination) Will d/c IV ceftriaxone (6) DM2 (diabetes mellitus, type 2): Plan: A1c reflects good control at 6.3. Continue to Hold metformin while inpatient and give short acting insulin for carb coverage and correction factor as needed. Continue monitor blood sugar (7) Hypothyroidism: Plan: Chronic, stable continue Synthroid replacement per home regimen. (8) HTN (hypertension): Plan: Chronic, stable with some hypotension overnight. Currently antihypertensives are held. (9) DVT prophylaxis: Plan: continue Coumadin INR 1.7 Continue IV heparin drip Full code Disposition plan to discharge home Admission and Anticipated Discharge Date Admission Date: September 02, 2022 Subjective Pt was seen and examined for anemia Sitting at the edge of the bed with no acute distress Pt just got back from colonoscopy She said that she feels ok Denies any chest pain, palpitation, dizziness and SOB Review of Systems Review of Systems: All systems reviewed & are unremarkable except as noted in Subjective Physical Exam Physical Exam: General- No acute distress Head- atraumatic Eyes- PERRL, EOMI, ENT- oropharynx clear Neck- supple, no JVD Lungs- clear to auscultation Heart- regular rhythm; mechanical click audible, Abdomen- normal bowel sounds, soft, nontender Extremities- no calf tenderness Neuro- alert, oriented x 3; PERRL, EOMI; no facial palsy; no dysarthria Skin- warm & dry Results & Data Results & Data ([facility]) Vital Signs (Past 12 Hours) Vital Signs Temp Pulse Pulse Resp BP BP Pulse Ox 09/06/22 19:10 36.4 C L 81 18 122/76 96 09/06/22 16:00 69 09/06/22 16:13 36.4 C L 77 18 127/82 95 09/06/22 12:03 36.9 C 73 18 127/83 97 09/06/22 11:21 62 16 114/71 94 09/06/22 11:07 63 16 98/58 L 94 09/06/22 10:51 37 C 65 14 94/47 L 93 O2 Del Method 09/06/22 19:10 Room Air 09/06/22 16:00 09/06/22 16:13 Room Air 09/06/22 12:03 Room Air 09/06/22 11:21 Room Air 09/06/22 11:07 Room Air 09/06/22 10:51 Room Air (1) Hypothyroidism Hypothyroidism type: due to non-medication exogenous substances Qualified Code(s): E03.2 - Hypothyroidism due to medicaments and other exogenous substances (2) HTN (hypertension) Hypertension type: unspecified Qualified Code(s): I10 - Essential (primary) hypertension
[2022-09-07] MEDS: cefTRIAXone SODIUM 2,000 MG in DEXTROSE 5% 50 ML IV SCH (00:53)
[2022-09-07 06:27] LABS: INR 1.5 (0.9-1.1); Prothrombin Time 15.6 Seconds (9.0-12.0)
[2022-09-07] MEDS: LEVOTHYROXINE SODIUM 75 MCG TABLET PO SCH (06:37)
[2022-09-07 07:46] LABS: Partial Thromboplastin Ratio 2.8
[2022-09-07] MEDS: INSULIN ASPART PER UNIT SC SCH ×4 (08:20→20:15)
[2022-09-07] MEDS: PANTOprazole 40 MG in SYRINGE 0 ML IV SCH ×2 (08:20→20:12)
[2022-09-07] MEDS: POTASSIUM CHLORIDE CRTAB 20 MEQ TABCR PO SCH (08:20)
[2022-09-07] MEDS: MULTIVITAMIN TAB PO SCH (08:21)
[2022-09-07] MEDS: CITALOPRAM 20 MG TAB PO SCH (08:21)
[2022-09-07] MEDS: METOPROLOL SUCC 25MG EXT REL TAB PO SCH (08:21)
[2022-09-07] MEDS: ATORVASTATIN 40 MG TAB PO SCH (08:21)
[2022-09-07] MEDS: TOLTERODINE TARTRATE LA 2 MG CAPCR PO SCH (08:21)
[2022-09-07] MEDS: ASPIRIN 81 MG ECTAB PO SCH (08:21)
[2022-09-07] MEDS: HEPARIN SODIUM/DEXTROSE 25,000 UNITS/500 ML BAG IV SCH (08:31)
[2022-09-07 08:37] LABS: Hemoglobin 8.4 g/dl (12.0-16.0); Mean Corpuscular Hemoglobin 21.6 pg (25.0-34.0); Mean Corpuscular Volume 77.3 fL (80.0-100.0); Mean Platelet Volume 9.4 fL (9.4-12.3); Nucleated RBC % (auto) 1.2 %; Platelet Count 250 K/uL (130-400); RDW Coefficient of Variation 24.1 % (11.5-14.5); RDW Standard Deviation 64.9 fL (36.4-46.3); Red Blood Count 3.88 M/uL (3.93-5.22); White Blood Count 8.33 K/ul (4.8-10.8)
[2022-09-07] MEDS ORDERED: TORSEMIDE 10 MG TAB PO ONE (11:38)
[2022-09-07 15:08] LABS: Partial Thromboplastin Ratio 2.6
[2022-09-07 15:14] LABS: Partial Thromboplastin Time 72.3 Seconds (21.0-31.0)
--- NOTE | 2022-09-07 16:18 | Hospitalist Progress Note ---
Date of Service September 07, 2022 Assessment & Plan (1) Iron deficiency anemia: Plan: Symptomatic anemia Present on admission with low hemoglobin. She has been having fatigue and shortness of breath Hemoglobin on admission 6.3 No active bleeding but FOBT faintly positive Received 3 unit of PRBC during hospital course, hgb 8.1 today Hemoglobin today for the GI on board plan for EGD and colonoscopy tomorrow Case discussed with gastro that would prefer INR to be 2, no need for vitamin K if 2.5 for the EGD and colonoscopy Scope cancelled due to INR 3.7 after vitamin K Coumadin on hold for colonoscopy and EGD tomorrow 09/07/22 Hgb 8.4 and INR 1.5 today S/P EGD showed normal esophagus. Normal stomach. Normal duodenal bulb and second portion of the duodenum. S/P colonoscopy showed scattered small and large-mouthed diverticula were found in the sigmoid colon. She will need a repeat colonoscopy in 1 yr as per gastro No sign of bleeding Continue monitor CBC (2) S/P AVR (aortic valve replacement): (3) S/P MVR (mitral valve replacement): Plan: s/p AVR s/p MVR: Severe valvular disease requiring replacement of mitral valve, tricuspid valve, aortic valve Received Vit K for the preparation of scope INR 1.5 today Continue IV heparin drip bridging with Coumadin Discussed with patient about to transition from IV heparin to Lovenox Pt said that she will not be able to administer herself the Lovenox injection if discharges home She chose to stay in the hospital on IV heparin drip until INR at goal Will need to follow up with the coumadin clinic Continue coumadin Monitor PT/INR (4) H/O Hodgkin's lymphoma: Plan: Status post ABVD chemotherapy and XRT to her chest. (5) Dysuria: Plan: Complaint of dysuria A positive for Leukocyte and bacteria Repeat urine cx grew multi organisms (contamination) Received IV ceftriaxone (4 doses), discontinued stable (6) DM2 (diabetes mellitus, type 2): Plan: A1c reflects good control at 6.3. Continue to Hold metformin while inpatient and give short acting insulin for carb coverage and correction factor as needed. Continue monitor blood sugar (7) Hypothyroidism: Plan: Chronic, stable continue Synthroid replacement per home regimen. (8) HTN (hypertension): Plan: Chronic, stable with some hypotension overnight. Currently antihypertensives are held. (9) DVT prophylaxis: Plan: continue Coumadin INR 1.5 Continue IV heparin drip Full code Disposition plan to discharge home once INR at goal Admission and Anticipated Discharge Date Admission Date: September 02, 2022 Subjective Pt was seen and examined for anemia Sitting at the edge of the bed with no acute distress She said that she feels ok Discussed with patient about to transition to Lovenox Pt said that she will not be able to give herself the lovenox injection She chose to stay in the hospital on IV heparin drip until INR at goal Denies any chest pain, palpitation, dizziness and SOB Review of Systems Review of Systems: All systems reviewed & are unremarkable except as noted in Subjective Physical Exam Physical Exam: General- No acute distress Head- atraumatic Eyes- PERRL, EOMI, ENT- oropharynx clear Neck- supple, no JVD Lungs- clear to auscultation Heart- regular rhythm; mechanical click audible, Abdomen- normal bowel sounds, soft, nontender Extremities- no calf tenderness Neuro- alert, oriented x 3; PERRL, EOMI; no facial palsy; no dysarthria Skin- warm & dry Results & Data Results & Data ([facility]) Vital Signs (Past 12 Hours) Vital Signs Temp Pulse Pulse Resp BP Pulse Ox O2 Del Method 09/07/22 15:10 36.5 C 77 17 119/79 96 Room Air 09/07/22 15:04 71 09/07/22 10:28 36.6 C 71 17 125/80 94 Room Air 09/07/22 07:32 36.7 C 70 18 134/80 95 Room Air 09/07/22 07:19 73 (1) Hypothyroidism Hypothyroidism type: due to non-medication exogenous substances Qualified Code(s): E03.2 - Hypothyroidism due to medicaments and other exogenous substances (2) HTN (hypertension) Hypertension type: unspecified Qualified Code(s): I10 - Essential (primary) hypertension
[2022-09-07] MEDS ORDERED: WARFARIN SOD 4 MG TAB PO ONE (17:09)
[2022-09-07] MEDS: GABAPENTIN 100 MG CAP PO SCH (20:15)
[2022-09-07 22:21] LABS: Partial Thromboplastin Ratio 2.3
[2022-09-07 22:22] LABS: Partial Thromboplastin Time 61.9 Seconds (21.0-31.0)
[2022-09-08 05:48] LABS: BUN Creatinine Ratio 13.5 (10-20); Creatinine Clr Calc Pharmacy 96.5 ml/min; Est GFR (African American) 107.2 ml/min; Est GFR (Non-African American) 92.5 ml/min; Magnesium 1.8 mg/dl (1.7-2.4); Potassium 3.2 mmol/L (3.5-5.1)
[2022-09-08 05:49] LABS: Acanthocytes 1+; Anisocytosis Present; Basophils # (auto) 0.05 K/uL (0-0.2); Basophils % (auto) 0.6 %; Echinocytes 1+; Eosinophils % (auto) 2.4 %; Hematocrit (blood only) 29.7 % (34.1-44.9); Hemoglobin 8.2 g/dl (12.0-16.0); Immature Granulocytes # (auto) 0.06 K/uL (0.00-0.02); Immature Granulocytes % (auto) 0.7 %; Lymphocytes # (auto) 1.47 K/uL (1.2-3.4); Lymphocytes % (auto) 17.8 %; Mean Corpuscular Hemoglobin 21.2 pg (25.0-34.0); Mean Corpuscular Hgb Conc 27.6 g/dL (32.0-36.0); Mean Corpuscular Volume 76.7 fL (80.0-100.0); Mean Platelet Volume 8.8 fL (9.4-12.3); Monocytes % (auto) 12.1 %; Neutrophils # (auto) 5.46 K/uL (1.4-6.5); Neutrophils % (auto) 66.4 %; Nucleated RBC # (auto) 0.12 K/uL (0-0); Nucleated RBC % (auto) 1.5 %; Platelet Count 229 K/uL (130-400); Polychromasia 1+; RDW Coefficient of Variation 24.4 % (11.5-14.5); Red Blood Count 3.87 M/uL (3.93-5.22); White Blood Count 8.24 K/ul (4.8-10.8)
[2022-09-08] MEDS: LEVOTHYROXINE SODIUM 75 MCG TABLET PO SCH (06:04)
[2022-09-08 06:09] LABS: INR 1.6 (0.9-1.1); Partial Thromboplastin Ratio 2.3; Prothrombin Time 16.6 Seconds (9.0-12.0)
[2022-09-08 06:11] LABS: Partial Thromboplastin Time 64.4 Seconds (21.0-31.0)
[2022-09-08] MEDS: HEPARIN SODIUM/DEXTROSE 25,000 UNITS/500 ML BAG IV SCH (06:37)
[2022-09-08] MEDS: ATORVASTATIN 40 MG TAB PO SCH (08:27)
[2022-09-08] MEDS: ASPIRIN 81 MG ECTAB PO SCH (08:27)
[2022-09-08] MEDS: PANTOprazole 40 MG in SYRINGE 0 ML IV SCH (08:27)
[2022-09-08] MEDS: MULTIVITAMIN TAB PO SCH (08:27)
[2022-09-08] MEDS: METOPROLOL SUCC 25MG EXT REL TAB PO SCH (08:27)
[2022-09-08] MEDS: TORSEMIDE 20 MG TAB PO SCH (08:27)
[2022-09-08] MEDS: POTASSIUM CHLORIDE CRTAB 20 MEQ TABCR PO SCH ×3 (08:27→16:04)
[2022-09-08] MEDS: TOLTERODINE TARTRATE LA 2 MG CAPCR PO SCH (08:27)
[2022-09-08] MEDS: CITALOPRAM 20 MG TAB PO SCH (08:27)
[2022-09-08] MEDS: INSULIN ASPART PER UNIT SC SCH ×2 (08:28→11:36)
--- NOTE | 2022-09-08 09:40 | Hospitalist Progress Note ---
Date of Service September 08, 2022 Assessment & Plan (1) Iron deficiency anemia: Plan: Symptomatic anemia Present on admission with low hemoglobin. She has been having fatigue and shortness of breath Hemoglobin on admission 6.3 No active bleeding but FOBT faintly positive Received 3 unit of PRBC during hospital course, hgb stable today GI workup (EGD/CSP) was negative for occult bleed. S/P EGD showed normal esophagus. Normal stomach. Normal duodenal bulb and second portion of the duodenum. S/P colonoscopy showed scattered small and large-mouthed diverticula were found in the sigmoid colon. She will need a repeat colonoscopy in 1 yr as per gastro INR subtherapeutic, and on heparin drip. OK to transition her to Lovenox bridge, however, looking to coordinate her getting an injection at anticoag clinic or PCP clinic as she cannot inject herself. (2) Localized swelling of left lower extremity: Plan: Unilateral pitting edema that has been intermittent for several weeks. Othe rwise no pain or other symptoms. R/o DVT with us LLE now. (3) NSVT (nonsustained ventricular tachycardia): Plan: 12 beat run vtach. Historically, last echo was Jan 17 and revealed eF 44%. Structural heart disease can cause this and she has the valve prostheses, also. Will update echo today. She is euvolemic and does not have symptoms of heart failure or ACS at this time. Also K was 3.2 and will replace this; Mg 1.8 will give 1gm IV for goal K 4.0 and Mg 2.0. (4) S/P AVR (aortic valve replacement): (5) S/P MVR (mitral valve replacement): Plan: s/p AVR s/p MVR: Severe valvular disease requiring replacement of mitral valve, tricuspid valve, aortic valve Received Vit K for the preparation of scope INR 1.6 today with coumadin given for the last 2 days. Continue IV heparin drip bridging with Coumadin Cont coumadin at home dose 7.5 and monitor INR daily. (6) H/O Hodgkin's lymphoma: Plan: Status post ABVD chemotherapy and XRT to her chest. (7) Dysuria: Plan: Complaint of dysuria A positive for Leukocyte and bacteria Repeat urine cx grew multi organisms (contamination) and UTI ruled out Received IV ceftriaxone (4 doses), discontinued stable (8) DM2 (diabetes mellitus, type 2): Plan: A1c reflects good control at 6.3. Currenlty at inpatient goal. Continue to Hold metformin while inpatient and give short acting insulin for carb coverage and correction factor as needed. Continue monitor blood sugar (9) Hypothyroidism: Plan: Chronic, stable continue Synthroid replacement per home regimen. (10) HTN (hypertension): Plan: Chronic, stable with some hypotension overnight. Currently antihypertensives are held. (11) DVT prophylaxis: Plan: Coumadin, Heparin drip Full code Disposition plan to discharge home once INR at goal or we have a good plan to bridge her. For now, cont telemetry monitoring pending echo results. Elizabeth Driver DO [facility] Hospitalist Admission and Anticipated Discharge Date Admission Date: September 02, 2022 Subjective 52 yo F presented for symptomatic iron deficiency anemia. GI workup was unrevealing for a source of occult bleeding H/H is stable and she is feeling improved. Denies SOB/CP or other issues today except she does have increased swelling in her LLE>RLE States this has been happening after she has been on her feet running errands x several weeks she has noticed this. Still with residual pins and needles feeling in her left leg since stroke and no reported pain. Reports cannot inject herself with Lovenox at home and INR still 1.6 with goal 3.0 (2.5 min) Review of Systems Review of Systems: All systems reviewed negative except as indicated above. Physical Exam Physical Exam: CONSTITUTIONAL: WNWD, vitals as above, generally well-appearin g, NAD EYES: normal conjunctivae, no scleral icterus ENT: external ear and nose normal, MMM NECK: trachea midline, RESPIRATORY: clear to auscultation bilaterally, no crackles, rales or wheezes, normal respiratory effort CARDIOVASCULAR: regular rate and rhythm, S1 and 2 heard without murmurs, mechanical click audible, no gallops or rubs, no JVD, 1+ peripheral edema in LLE, no edema on RLE CHEST: inspection of chest was normal GASTROINTESTINAL: soft, nontender, ND, no guarding MUSCULOSKELETAL: strength 5/5 throughout, head is normocephalic and atraumatic SKIN: warm and dry NEUROLOGIC: CN 2-12 grossly intact, no sensory deficit, normal cognition, normal speech, no tremor PSYCHIATRIC: alert cooperative and oriented to person, place and time. Results & Data Results & Data ([facility]) Vital Signs (Past 12 Hours) Vital Signs Temp Pulse Pulse Resp BP BP Pulse Ox 09/08/22 07:29 37.0 C 73 20 110/74 93 09/08/22 02:58 36.5 C 75 18 109/70 93 09/08/22 01:02 98/59 L 09/07/22 22:19 71 09/07/22 22:59 36.8 C 70 18 104/68 95 O2 Del Method FiO2 09/08/22 07:29 Room Air 21 09/08/22 02:58 Room Air 09/08/22 01:02 09/07/22 22:19 09/07/22 22:59 Room Air Laboratory Results Short CBC 09/08/22 Range/Units 05:14 WBC 8.24 (4.8-10.8) K/ul Hgb 8.2 L (12.0-16.0) g/dl Hct 29.7 L (34.1-44.9) % Plt Count 229 (130-400) K/uL BMP 09/08/22 05:14 Sodium 139 Potassium 3.2 L Chloride 104 Carbon Dioxide 26 BUN 10 Creatinine 0.74 Glucose 109 H Calcium 8.0 L Medications Administered Current Inpatient Medications Aspirin (Aspirin 81 Mg Ectab) 81 mg PO QAM HAROLDO Stop: 10/04/22 08:59 Last Admin: 09/08/22 08:27 Dose: 81 mg Atorvastatin Calcium (Atorvastatin 40 Mg Tab) 40 mg PO QAM HAROLDO Stop: 10/03/22 08:59 Last Admin: 09/08/22 08:27 Dose: 40 mg Buspirone HCl (Buspirone 5 Mg Tab) 5 mg PO BID PRN PRN Reason: Anxiety Stop: 10/02/22 20:32 Citalopram Hydrobromide (Citalopram 20 Mg Tab) 20 mg PO DAILY HAROLDO Stop: 10/03/22 08:59 Last Admin: 09/08/22 08:27 Dose: 20 mg Dextrose (Dextrose 50% 50 Ml Syringe) 25 - 50 ml IV UD PRN; Protocol PRN Reason: Hypoglycemia Protocol Stop: 10/02/22 20:32 Gabapentin (Gabapentin 100 Mg Cap) 100 mg PO HS HAROLDO Stop: 10/02/22 20:59 Last Admin: 09/07/22 20:15 Dose: 100 mg Glucagon (Glucagon For Inj 1 Mg Vial) 1 mg SQ UD PRN; Protocol PRN Reason: Hypoglycemia Protocol Stop: 10/02/22 20:32 Glucose (Glucose 10 Tab/Tube) 4 - 8 tab PO UD PRN; Protocol PRN Reason: Hypoglycemia Treatment Stop: 10/02/22 20:32 Glucose (Glucose 40% Gel 15 Gm Tube) 15 - 30 gm PO UD PRN; Protocol PRN Reason: Hypoglycemia Protocol Stop: 10/02/22 20:32 Pantoprazole Sodium 40 mg/ (Syringe) 10 mls @ 5 mls/min IV BID HAROLDO Stop: 10/02/22 20:59 Last Admin: 09/08/22 08:27 Dose: 5 mls/min Heparin Sodium/Dextrose (Heparin Sodium/Dextrose) 25,000 units in 500 mls @ 23 mls/hr IV .[id number] HAROLDO; Protocol Stop: 10/06/22 12:44 Last Titration: 09/08/22 06:58 Dose: 1,150 units/hr, 23 mls/hr Insulin Aspart (Insulin Aspart Per Unit) 0 units SC ACHS HAROLDO Stop: 10/02/22 20:59 Last Admin: 09/08/22 08:28 Dose: Not Given Levothyroxine Sodium (Levothyroxine Sodium 75 Mcg Tablet) 75 mcg PO DAILYBB [facility] Stop: 10/03/22 07:44 Last Admin: 09/08/22 06:04 Dose: 75 mcg Losartan Potassium (Losartan Potassium 25 Mg Tab) 12.5 mg PO QAM HAROLDO Stop: 10/03/22 08:59 Metoprolol Succinate (Metoprolol Succ 25mg Ext Rel Tab) 25 mg PO DAILY HAROLDO Stop: 10/03/22 08:59 Last Admin: 09/08/22 08:27 Dose: 25 mg Miscellaneous (Carbohydrates For Hypoglycemia ) 15 - 30 gm PO UD PRN PRN Reason: Hypoglycemia Protocol Stop: 10/02/22 20:32 Multivitamins (Multivitamin Tab) 1 tab PO DAILY HAROLDO Stop: 10/03/22 08:59 Last Admin: 09/08/22 08:27 Dose: 1 tab Potassium Chloride (Potassium Chloride Crtab 20 Meq Tabcr) 20 meq PO DAILY [facility]OL[facility] Stop: 10/03/22 08:59 Last Admin: 09/08/22 08:27 Dose: 20 meq Spironolactone (Spironolactone 12.5 Mg Tab) 12.5 mg PO DAILY [facility] Stop: 10/03/22 08:59 Tolterodine Tartrate (Tolterodine Tartrate La 2 Mg Capcr) 2 mg PO DAILY [facility] Stop: 10/03/22 08:59 Last Admin: 09/08/22 08:27 Dose: 2 mg Torsemide (Torsemide 20 Mg Tab) 20 mg PO QAM [facility] Stop: 10/03/22 08:59 Last Admin: 09/08/22 08:27 Dose: 20 mg Warfarin Sodium (Warfarin Sod 7.5 Mg Tab) 7.5 mg PO DAILY@1600 [facility] Stop: 10/03/22 15:59 Last Admin: 09/03/22 15:55 Dose: 7.5 mg (1) Hypothyroidism Hypothyroidism type: due to non-medication exogenous substances Qualified Code(s): E03.2 - Hypothyroidism due to medicaments and other exogenous substances (2) HTN (hypertension) Hypertension type: unspecified Qualified Code(s): I10 - Essential (primary) hypertension
[2022-09-08] MEDS ORDERED: MAGNESIUM SULFATE / D5W 1 GM/100 ML BAG IV ONE (09:52)
--- NOTE | 2022-09-08 11:39 | Ultrasound Report ---
LEFT LOWER EXTREMITY VENOUS DOPPLER HISTORY: Left leg swelling x 4 weeks COMPARISON STUDY: None. FINDINGS: There is normal compressibility, flow, and augmentation within the left lower extremity carmen p venous system. There is a 4 x 3 x 2 cm popliteal cyst. IMPRESSION: No DVT within the left lower extremity. ACT 112: Negative or not required by law. Electronically signed by: Blas Goldstein M.D. 09/08/2022 11:38 AM
[2022-09-08] MEDS: WARFARIN SOD 7.5 MG TAB PO SCH (16:06)
[2022-09-08] MEDS: GABAPENTIN 100 MG CAP PO SCH (21:00)
[2022-09-09] MEDS: HEPARIN SODIUM/DEXTROSE 25,000 UNITS/500 ML BAG IV SCH (04:59)
[2022-09-09] MEDS: LEVOTHYROXINE SODIUM 75 MCG TABLET PO SCH (06:12)
[2022-09-09 07:54] LABS: Hematocrit (blood only) 30.1 % (34.1-44.9); Hemoglobin 8.5 g/dl (12.0-16.0); Mean Corpuscular Hemoglobin 21.6 pg (25.0-34.0); Mean Corpuscular Hgb Conc 28.2 g/dL (32.0-36.0); Mean Corpuscular Volume 76.6 fL (80.0-100.0); Mean Platelet Volume 9.3 fL (9.4-12.3); Nucleated RBC # (auto) 0.15 K/uL (0-0); Nucleated RBC % (auto) 1.9 %; Platelet Count 239 K/uL (130-400); RDW Standard Deviation 66.1 fL (36.4-46.3); Red Blood Count 3.93 M/uL (3.93-5.22); White Blood Count 7.89 K/ul (4.8-10.8)
[2022-09-09 08:11] LABS: INR 1.9 (0.9-1.1); Partial Thromboplastin Ratio 2.4; Prothrombin Time 19.9 Seconds (9.0-12.0)
[2022-09-09 08:13] LABS: Partial Thromboplastin Time 65.8 Seconds (21.0-31.0)
[2022-09-09] MEDS: LANSOPRAZOLE 30 MG SOLTAB PO SCH (08:26)
[2022-09-09] MEDS: MULTIVITAMIN TAB PO SCH (08:26)
[2022-09-09] MEDS: TORSEMIDE 20 MG TAB PO SCH (08:26)
[2022-09-09] MEDS: ATORVASTATIN 40 MG TAB PO SCH (08:26)
[2022-09-09] MEDS: TOLTERODINE TARTRATE LA 2 MG CAPCR PO SCH (08:26)
[2022-09-09] MEDS: ASPIRIN 81 MG ECTAB PO SCH (08:26)
[2022-09-09] MEDS: POTASSIUM CHLORIDE CRTAB 20 MEQ TABCR PO SCH (08:26)
[2022-09-09] MEDS: CITALOPRAM 20 MG TAB PO SCH (08:26)
[2022-09-09] MEDS: METOPROLOL SUCC 25MG EXT REL TAB PO SCH (08:27)
[2022-09-09 08:35] LABS: BUN Creatinine Ratio 18.8 (10-20); Calcium 8.7 mg/dl (8.5-10.1); Creatinine Clr Calc Pharmacy 103.8 ml/min; Est GFR (African American) 115.2 ml/min; Est GFR (Non-African American) 99.4 ml/min; Potassium 4.1 mmol/L (3.5-5.1)
[2022-09-09] MEDS: LOSARTAN POTASSIUM 25 MG TAB PO SCH (09:40)
[2022-09-09] MEDS: SPIRONOLACTONE 12.5 MG TAB PO SCH (09:40)
--- NOTE | 2022-09-09 09:41 | Cardiology Consultation ---
Date of Consultation September 09, 2022 Assessment & Plan (1) Iron deficiency anemia: (2) Localized swelling of left lower extremity: (3) Non-ischemic cardiomyopathy: (4) NSVT (nonsustained ventricular tachycardia): (5) S/P AVR (aortic valve replacement): (6) S/P MVR (mitral valve replacement): (7) CVA (cerebral vascular accident): (1) Iron deficiency anemia: -EGD and colonoscopy relatively unrevealing. Possible source could be small bowel AVM. The patient does not note any gross blood per rectum. -Another consideration is hemolysis from her prosthetic valves. This would not necessarily explain the iron deficiency. But the bilirubin was mildly elevated on presentation at 1.3. I have requested an LDH, haptoglobin, and reticulocyte count. Of course these values must be interpreted with the knowledge that the patient has received 3 units of packed red blood cells via transfusion already this admission. -The aortic valve and mitral valve were not well visualized on the transthoracic echocardiogram performed this hospital stay. Of note, on the outpatient transt horacic echo study in 2020, there is been a subtle increase in the velocity across the aortic valve in the range of 2.8 m/s, now 3 m/s, and the mean gradient across the mitral prosthesis was 8.6 mmHg at that time, and this was not sufficiently reassessed on a transthoracic study this admission. -Recommend transesophageal echocardiogram for evaluation of perivalvular regurgitation that may be a source of anemia. (2) Localized swelling of left lower extremity: -Venous duplex negative. Not certain if this is congestive heart failure such as venous insufficiency. No significant edema noted on exam at present. (3) Non-ischemic cardiomyopathy: -Echocardiogram performed 09/08/2022, reviewed independently, with abnormal septal motion consistent with left bundle branch block, and left ventricular dyssynchrony. As noted, valves felt to not be sufficiently assessed. Recommend pursuing a transesophageal echocardiogram for further assessment of valvular heart disease. The patient has been on a guideline based medication therapy for congestive heart failure on a chronic basis including metoprolol, losartan, spironolactone, torsemide, and ejection fraction has declined from 40-44% in 2020, to the range of 30 to 35%. Future considerations include cardiac resynchronization capable AICD. (4) NSVT (nonsustained ventricular tachycardia): Telemetry reviewed. Predominant rhythm is sinus rhythm in the 70s with occasional isolated PVCs and occasional ventricular couplets. On 09/05/2022 at 9:10 AM there was an 11 beat run of tachycardia that appears to be a supraventricular tachycardia with aberrant conduction. The QRS morphology is different than that noted with the PVCs. At present I do not see evidence of nonsustained ventricular tachycardia on telemetry. (5) S/P AVR (aortic valve replacement): -As noted above (6) S/P MVR (mitral valve replacement): -As noted above (7) CVA (cerebral vascular accident): -Patient with history of mechanical mitral valve, mechanical aortic valve, and history of lacunar infarction noted on previous imaging. Continue cautious anticoagulation, heparin bridge, goal INR 3, range 2.5-3.5. Continue aspirin -Patient agreeable to remaining in hospital, for planned transesophageal echocardiogram on 09/12/2022. Anesthesia consultation placed. In meantime, continue heparin to Coumadin bridge. History of Present Illness Attending Physician: Elizabeth Driver, History of Present Illness Shobha Cabrera is a 52 year old female seen in cardiology consultation per the request of Dr Driver for the management of congestive heart failure and anticoagulation. The patient was admitted to [facility] having presented on 09/02/2022 with severe iron deficiency anemia, hemoglobin 6.3, after having had an outpatient hemoglobin of 6.8 the day before. Outpatient iron studies were notable for an iron level of 19, TIBC of 550, transferrin saturation of 3. INR at the time of outpatient blood work was 2.9. The patient notes worsening shortness of breath has been progressive over the last 6 months. 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 And feels wiped out and dyspneic with minimal activity. She feels that more than 6 months ago, this was not the case. Hemoglobin performed 03/11/2021 as an outpatient was 12.2. The patient has had a total of 3 units of packed red blood cells while hospitalized thus far, and underwent EGD and colonoscopy on 09/06/2022. EGD was unremarkable. Colonoscopy notable for diverticulosis, without definite evidence of bleeding there. She notes no obvious blood per rectum. She is postmenopausal, and has not had any uterine bleeding. PAST MEDICAL HISTORY: 1.Severe aortic regurgitation status post mechanical aortic valve replacement with a 21 mm [employer]onic [place] valve. 2.Severe mitral regurgitation status post mechanical mitral valve replacement with a 25 x33 Steuben mechanical prosthesis. 3.Tricuspid regurgitation status post annuloplasty ring. 4.Postoperative atrial flutter, status post ablation. 5.Nonischemic cardiomyopathy, EF approximately 40- 44% outpatient echocardiogram December, 6.History of Hodgkin lymphoma, status post chemo and radiation 1996 Allergies Allergy/AdvReac Type Severity Reaction Status Date / Time kiwi Allergy SV TONGUE Verified 09/02/22 16:49 SWELLS No Known Drug Allergies Allergy Unknown Unknown Unverified 09/02/22 16:49 Home Medications Medication Instructions Recorded Confirmed Type acyclovir 5 % topical cream 1 applic topical DIRECTED 09/02/22 09/02/22 History aspirin 81 mg tablet,delayed 162 mg PO DAILY 09/02/22 09/02/22 History release atorvastatin 40 mg tablet 40 mg PO QAM 09/02/22 09/02/22 History buspirone 5 mg tablet 5 mg PO BID PRN Anxiety 09/02/22 09/02/22 History citalopram 20 mg tablet 20 mg PO DAILY 09/02/22 09/02/22 History diclofenac sodium 1 % topical gel 2 g topical BID PRN Pain 09/02/22 09/02/22 History gabapentin 100 mg capsule 100 mg PO HS 09/02/22 09/02/22 History lansoprazole 30 mg capsule,delayed 30 mg PO QAM 09/02/22 09/02/22 History release levothyroxine 75 mcg tablet 75 mcg PO QAM 09/02/22 09/02/22 History (Euthyrox) losartan 25 mg tablet 12.5 mg PO QAM 09/02/22 09/02/22 History metformin 500 mg tablet 500 mg PO QAM 09/02/22 09/02/22 History metoprolol succinate 25 mg 25 mg PO DAILY 09/02/22 09/02/22 History tablet,extended release 24 hr multivitamin 1 tab PO DAILY 09/02/22 09/02/22 History potassium chloride 20 mEq 20 meq PO DAILY 09/02/22 09/02/22 History tablet,extended release (K-Tab) spironolactone 25 mg tablet 12.5 mg PO DAILY 09/02/22 09/02/22 History tolterodine 2 mg capsule,extended 2 mg PO DAILY 09/02/22 09/02/22 History release 24 hr torsemide 20 mg tablet 20 mg PO QAM 09/02/22 09/02/22 History torsemide 20 mg tablet 20 mg PO QPM PRN Fluid Retention 09/02/22 09/02/22 History warfarin 5 mg tablet 7.5 mg PO .[id number] 09/02/22 09/02/22 History warfarin 5 mg tablet 10 mg PO .QMON 09/02/22 09/02/22 History Patient History Medical History Atrial flutter DM2 (diabetes mellitus, type 2) Encounter for pre-operative examination GERD (gastroesophageal reflux disease) GIB (gastrointestinal bleeding) H/O Hodgkin's lymphoma "s/p chemo and radiation " HTN (hypertension) Hypothyroidism Mood disorder Obstructive sleep apnea of adult Rheumatic heart disease Severe mitral regurgitation Volume overload Surgical History S/P cholecystectomy Family History Other No pertinent family history in first degree relatives Social History Smoking Status: Current some day smoker Tobacco Type: Cigarettes Age Started Using Tobacco: 34; Age Quit Using Tobacco: 48; packs per day: 1; Number of Years Since Quit: 2; Hx Alcohol Use: Yes Alcohol type: wine Hx Substance Use: No Preferred Language: Luxembourgish Communication Ability: Effective Commercial Sales Manager Required: No Beliefs That Will Affect Care: None marital status: Single Current Living Situation: Alone current occupational status: other 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 Has not worked since Covid pandemic How many Children do You have: 1 Other Information That Helps Us Care for You: No Feels Safe at Home: Yes Safety Concerns: Feels Safe At This Time Assistive Devices: Cane Review of Systems Review of Systems: All systems reviewed & are unremarkable except as noted in HPI & below Physical Exam Constitutional: WD/WN, vitals as above Respiratory: normal respiratory effort, lungs clear to auscultation Cardiovascular: Rate/Rhythm: regular rate and regular rhythm Heart Sounds: no murmur (Prosthetic heart sounds noted, no murmur) Extremities: no edema Gastrointestinal (Abdomen): normal bowel sounds, soft, nontender, no hepatosplenomegaly Neurologic: PERRL, EOMI, accommodation nl, no face palsy, no dysarthria Results & Data ([facility]) Vital Signs (Past 12 Hours) Vital Signs Temp Pulse Pulse Resp BP BP Pulse Ox 09/09/22 07:02 36.9 C 76 20 120/75 93 09/09/22 02:59 36.7 C 73 20 94/63 L 94 09/08/22 22:15 82 09/08/22 23:09 36.8 C 72 18 129/81 95 O2 Del Method 09/09/22 07:02 Room Air 09/09/22 02:59 Room Air 09/08/22 22:15 09/08/22 23:09 Room Air Laboratory Results Cardiac Enzymes 09/09/22 09/09/22 Range/Units 06:58 07:36 Lactate Dehydrogenase 343 H (86-244) U/L B-Natriuretic Peptide 824 H (0-100) pg/ml Coagulation 09/09/22 09/09/22 Range/Units 06:56 07:36 PT 19.9 H (9.0-12.0) Seconds APTT 65.8 H* (21.0-31.0) Seconds B-Natriuretic Peptide 824 H (0-100) pg/ml CBC 09/09/22 Range/Units 07:36 WBC 7.89 (4.8-10.8) K/ul RBC 3.93 (3.93-5.22) M/uL Hgb 8.5 L (12.0-16.0) g/dl Hct 30.1 L (34.1-44.9) % Plt Count 239 (130-400) K/uL Comprehensive Metabolic Panel 09/09/22 Range/Units 07:36 Sodium 136 (136-145) mmol/L Potassium 4.1 D (3.5-5.1) mmol/L Chloride 104 (98-107) mmol/L Carbon Dioxide 25 (21-32) mmol/L BUN 13 (6-23) mg/dl Creatinine 0.69 (0.6-1.2) mg/dl Glucose 101 H (70-99(Fasting)) mg/dl Calcium 8.7 (8.5-10.1) mg/dl Intake and Output 10/13/22 10/14/22 10/14/22 22:59 06:59 14:59 Intake Total 276.383 / 1066.950 315.567 / 1066.950 Balance 276.383 / 1066.950 315.567 / 1066.950 Intake: IV 276.383 / 591.950 215.567 / 591.950 Heparin Sodium/Dextrose 25,000 276.383 / 491.950 215.567 / 491.950 units In 500 ml @ 1,150 UNITS/ HR 23 mls/hr IV .[id number] [facility] Rx #:[id number] Oral 100 / 475 Other: # Unmeasured Voids 1 Weight 99.1 kg Weight Measurement Method Built in [facility] Diagnostic Findings EKG performed 09/02/2022, interpreted independently, sinus rhythm 83 bpm with first-degree AV block, OR interval 206 ms, left bundle branch block, QRS duration 140 ms
[2022-09-09 10:16] LABS: Reticulocyte % 2.3 % (0.5-2.0); Reticulocytes # 0.09 10^6/uL (0.02-0.10)
--- NOTE | 2022-09-09 15:11 | Hospitalist Progress Note ---
Date of Service September 09, 2022 Assessment & Plan (1) Iron deficiency anemia: Plan: Symptomatic anemia Present on admission with low hemoglobin. She has been having fatigue and shortness of breath Hemoglobin on admission 6.3 No active bleeding but FOBT faintly positive Received 3 unit of PRBC during hospital course, hgb stable today GI workup (EGD/CSP) was negative for occult bleed. S/P EGD showed normal esophagus. Normal stomach. Normal duodenal bulb and second portion of the duodenum. S/P colonoscopy showed scattered small and large-mouthed diverticula were found in the sigmoid colon. She will need a repeat colonoscopy in 1 yr as per gastro INR subtherapeutic, and on heparin drip. OK to transition her to Lovenox bridge, however, looking to coordinate her getting an injection at anticoag clinic or PCP clinic as she cannot inject herself. CHRISTO monday to assess for periapical valve disease that may be contributing to her anemia. (2) Localized swelling of left lower extremity: Plan: resolved although BNP was elevated this am. As she is asymptomatic at rest and is euvolemic, hold on diuretic therapy at this time. Cont GDMT for nonischemic cardiomyopathy. (3) NSVT (nonsustained ventricular tachycardia): Plan: no persistent. Cardiology reviewing. (4) S/P AVR (aortic valve replacement): (5) S/P MVR (mitral valve replacement): Plan: s/p AVR s/p MVR: Severe valvular disease requiring replacement of mitral valve, tricuspid valve, aortic valve Received Vit K for the preparation of scope INR 1.9 today with coumadin given for the last 2 days. Continue IV heparin drip bridging with Coumadin Cont coumadin at home dose 7.5 and monitor INR daily. Goal is 3.0 (6) Non-ischemic cardiomyopathy: Plan: Chronic, decreased EF on recent echo to 30-35%. Per cards, may consider resynchronization therapy as she is on GDMT. Cont current therapy for now. CHRISTO on Monday to assess prosthetic valves. (7) H/O Hodgkin's lymphoma: Plan: Status post ABVD chemotherapy and XRT to her chest. (8) Dysuria: Plan: Complaint of dysuria A positive for Leukocyte and bacteria Repeat urine cx grew multi organisms (contamination) and UTI ruled out Received IV ceftriaxone (4 doses), discontinued stable (9) DM2 (diabetes mellitus, type 2): Plan: A1c reflects good control at 6.3. Currenlty at inpatient goal. Continue to Hold metformin while inpatient and give short acting insulin for carb coverage and correction factor as needed. Continue monitor blood sugar (10) Hypothyroidism: Plan: Chronic, stable continue Synthroid replacement per home regimen. (11) HTN (hypertension): Plan: Chronic, stable with some hypotension overnight. Currently antihypertensives are held. (12) DVT prophylaxis: Plan: Coumadin, Heparin drip Full code Disposition -to home after the weekend. DO Brice De [facility] Hospitalist Admission and Anticipated Discharge Date Admission Date: September 02, 2022 Subjective 52 yo F presented for symptomatic iron deficiency anemia. H/H is stable and she continues to feel well. Edema in lower extremities is resolved. No SOB/chest pain INR 1.9 today and this was discussed wtih her. Review of Systems Review of Systems: All systems reviewed negative except as indicated above. Physical Exam Physical Exam: CONSTITUTIONAL: WNWD, vitals as above, generally well- appearing, NAD EYES: normal conjunctivae, no scleral icterus ENT: external ear and nose normal, MMM NECK: trachea midline, RESPIRATORY: clear to auscultation bilaterally, no crackles, rales or wheezes, normal respiratory effort CARDIOVASCULAR: regular rate and rhythm, S1 and 2 heard without murmurs, mechanical click audible, no gallops or rubs, no JVD, no peripheral edema. CHEST: inspection of chest was normal GASTROINTESTINAL: soft, nontender, ND, no guarding MUSCULOSKELETAL: strength 5/5 throughout, head is normocephalic and atraumatic SKIN: warm and dry NEUROLOGIC: CN 2-12 grossly intact, no sensory deficit, normal cognition, normal speech, no tremor PSYCHIATRIC: alert cooperative and oriented to person, place and time. Results & Data Results & Data ([facility]) Vital Signs (Past 12 Hours) Vital Signs Temp Pulse Pulse Resp BP Pulse Ox O2 Del Method 09/09/22 12:29 75 09/09/22 10:50 36.7 C 69 17 111/73 95 Room Air 09/09/22 07:02 36.9 C 76 20 120/75 93 Room Air Laboratory Results Short CBC 09/09/22 Range/Units 07:36 WBC 7.89 (4.8-10.8) K/ul Hgb 8.5 L (12.0-16.0) g/dl Hct 30.1 L (34.1-44.9) % Plt Count 239 (130-400) K/uL BMP 09/09/22 07:36 Sodium 136 Potassium 4.1 D Chloride 104 Carbon Dioxide 25 BUN 13 Creatinine 0.69 Glucose 101 H Calcium 8.7 Medications Administered Current Inpatient Medications Aspirin (Aspirin 81 Mg Ectab) 81 mg PO QAM [facility] Stop: 10/04/22 08:59 Last Admin: 09/09/22 08:26 Dose: 81 mg Atorvastatin Calcium (Atorvastatin 40 Mg Tab) 40 mg PO QAM [facility] Stop: 10/03/22 08:59 Last Admin: 09/09/22 08:26 Dose: 40 mg Buspirone HCl (Buspirone 5 Mg Tab) 5 mg PO BID PRN PRN Reason: Anxiety Stop: 10/02/22 20:32 Citalopram Hydrobromide (Citalopram 20 Mg Tab) 20 mg PO DAILY [facility] Stop: 10/03/22 08:59 Last Admin: 09/09/22 08:26 Dose: 20 mg Dextrose (Dextrose 50% 50 Ml Syringe) 25 - 50 ml IV UD PRN; Protocol PRN Reason: Hypoglycemia Protocol Stop: 10/02/22 20:32 Gabapentin (Gabapentin 100 Mg Cap) 100 mg PO HS [facility] Stop: 10/02/22 20:59 Last Admin: 09/08/22 21:00 Dose: 100 mg Glucagon (Glucagon For Inj 1 Mg Vial) 1 mg SQ UD PRN; Protocol PRN Reason: Hypoglycemia Protocol Stop: 10/02/22 20:32 Glucose (Glucose 10 Tab/Tube) 4 - 8 tab PO UD PRN; Protocol PRN Reason: Hypoglycemia Treatment Stop: 10/02/22 20:32 Glucose (Glucose 40% Gel 15 Gm Tube) 15 - 30 gm PO UD PRN; Protocol PRN Reason: Hypoglycemia Protocol Stop: 10/02/22 20:32 Heparin Sodium/Dextrose (Heparin Sodium/Dextrose) 25,000 units in 500 mls @ 23 mls/hr IV .[id number] [facility]; Protocol Stop: 10/06/22 12:44 Last Admin: 09/09/22 04:59 Dose: 1,150 units/hr, 23 mls/hr Lansoprazole (Lansoprazole 30 Mg Soltab) [facility]: 10/09/22 08:59 Last Admin: 09/09/22 08:26 Dose: 30 mg Levothyroxine Sodium (Levothyroxine Sodium 75 Mcg Tablet) 75 mcg PO DAILYBB [facility] Stop: 10/03/22 07:44 Last Admin: 09/09/22 06:12 Dose: 75 mcg Losartan Potassium (Losartan Potassium 25 Mg Tab) 12.5 mg PO QAM [facility] Stop: 10/03/22 08:59 Last Admin: 09/09/22 09:40 Dose: 12.5 mg Metoprolol Succinate (Metoprolol Succ 25mg Ext Rel Tab) 25 mg PO DAILY [facility] Stop: 10/03/22 08:59 Last Admin: 09/09/22 08:27 Dose: 25 mg Miscellaneous (Carbohydrates For Hypoglycemia ) 15 - 30 gm PO UD PRN PRN Reason: Hypoglycemia Protocol Stop: 10/02/22 20:32 Multivitamins (Multivitamin Tab) 1 tab PO DAILY [facility] Stop: 10/03/22 08:59 Last Admin: 09/09/22 08:26 Dose: 1 tab Potassium Chloride (Potassium Chloride Crtab 20 Meq Tabcr) 20 meq PO DAILY [facility] Stop: 10/03/22 08:59 Last Admin: 09/09/22 08:26 Dose: 20 meq Spironolactone (Spironolactone 12.5 Mg Tab) 12.5 mg PO DAILY [facility] Stop: 10/03/22 08:59 Last Admin: 09/09/22 09:40 Dose: 12.5 mg Tolterodine Tartrate (Tolterodine Tartrate La 2 Mg Capcr) 2 mg PO DAILY [facility] Stop: 10/03/22 08:59 Last Admin: 09/09/22 08:26 Dose: 2 mg Torsemide (Torsemide 20 Mg Tab) 20 mg PO QAM [facility] Stop: 10/03/22 08:59 Last Admin: 09/09/22 08:26 Dose: 20 mg Warfarin Sodium (Warfarin Sod 7.5 Mg Tab) 7.5 mg PO DAILY@1600 [facility] Stop: 10/03/22 15:59 Last Admin: 09/08/22 16:06 Dose: 7.5 mg (1) Hypothyroidism Hypothyroidism type: due to non-medication exogenous substances Qualified Code(s): E03.2 - Hypothyroidism due to medicaments and other exogenous substances (2) HTN (hypertension) Hypertension type: unspecified Qualified Code(s): I10 - Essential (primary) hypertension
[2022-09-09] MEDS: WARFARIN SOD 7.5 MG TAB PO SCH (16:30)
[2022-09-09] MEDS: GABAPENTIN 100 MG CAP PO SCH (20:24)
[2022-09-10] MEDS: HEPARIN SODIUM/DEXTROSE 25,000 UNITS/500 ML BAG IV SCH ×4 (03:57→09:09)
[2022-09-10] MEDS: LEVOTHYROXINE SODIUM 75 MCG TABLET PO SCH (05:56)
[2022-09-10 06:11] LABS: INR 2.4 (0.9-1.1); Prothrombin Time 24.8 Seconds (9.0-12.0)
[2022-09-10 06:14] LABS: Partial Thromboplastin Time 83.7 Seconds (21.0-31.0)
[2022-09-10] MEDS: SPIRONOLACTONE 12.5 MG TAB PO SCH (08:09)
[2022-09-10] MEDS: METOPROLOL SUCC 25MG EXT REL TAB PO SCH (08:09)
[2022-09-10] MEDS: TOLTERODINE TARTRATE LA 2 MG CAPCR PO SCH (08:09)
[2022-09-10] MEDS: POTASSIUM CHLORIDE CRTAB 20 MEQ TABCR PO SCH (08:09)
[2022-09-10] MEDS: MULTIVITAMIN TAB PO SCH (08:09)
[2022-09-10] MEDS: TORSEMIDE 20 MG TAB PO SCH (08:09)
[2022-09-10] MEDS: LOSARTAN POTASSIUM 25 MG TAB PO SCH (08:09)
[2022-09-10] MEDS: ASPIRIN 81 MG ECTAB PO SCH (08:10)
[2022-09-10] MEDS: CITALOPRAM 20 MG TAB PO SCH (08:10)
[2022-09-10] MEDS: LANSOPRAZOLE 30 MG SOLTAB PO SCH (08:10)
[2022-09-10] MEDS: ATORVASTATIN 40 MG TAB PO SCH (08:10)
[2022-09-10 13:12] LABS: Partial Thromboplastin Ratio 2.7
[2022-09-10 13:21] LABS: Partial Thromboplastin Time 73.5 Seconds (21.0-31.0)
--- NOTE | 2022-09-10 14:30 | Cardiology Progress Note ---
Date of Service September 10, 2022 Assessment & Plan (1) Iron deficiency anemia: (2) Localized swelling of left lower extremity: (3) Non-ischemic cardiomyopathy: (4) NSVT (nonsustained ventricular tachycardia): (5) S/P AVR (aortic valve replacement): (6) S/P MVR (mitral valve replacement): (7) CVA (cerebral vascular accident): Plan: (1) Iron deficiency anemia: -EGD and colonoscopy relatively unrevealing. Possible source could be small bowel AVM. The patient does not note any gross blood per rectum. -Haptoglobin obtained, results pending. LDH minimally elevated at 343 units/L. Reticulocyte minimally elevated. -Plan for transesophageal echocardiogram 09/12/2022 for assessment of prosthetic valve function with regards to hemolysis, and work-up of shortness of breath. (2) Localized swelling of left lower extremity: -Venous duplex negative. Not certain if this is congestive heart failure such as venous insufficiency. No significant edema noted on exam at present. (3) Non-ischemic cardiomyopathy: -Echocardiogram performed 09/08/2022, reviewed independently, with abnormal septal motion consistent with left bundle branch block, and left ventricular dyssynchrony. As noted, valves felt to not be sufficiently assessed. Recommend pursuing a transesophageal echocardiogram for further assessment of valvular heart disease. The patient has been on a guideline based medication therapy for congestive heart failure on a chronic basis including metoprolol, losartan, spironolactone, torsemide, and ejection fraction has declined from 40-44% in 2020, to the range of 30 to 35%. Future considerations include cardiac resynchronization capable AICD. (4) NSVT (nonsustained ventricular tachycardia): Telemetry reviewed. Predominant rhythm is sinus rhythm in the 70s with occasional isolated PVCs and occasional ventricular couplets. On 09/05/2022 at 9:10 AM there was an 11 beat run of tachycardia that appears to be a supraventricular tachycardia with aberrant conduction. The QRS morphology is different than that noted with the PVCs. At present I do not see evidence of nonsustained ventricular tachycardia on telemetry. (5) S/P AVR (aortic valve replacement): -As noted above (6) S/P MVR (mitral valve replacement): -As noted above (7) CVA (cerebral vascular accident): -INR today, 09/10/2022 is 2.4. -Patient with history of mechanical mitral valve, mechanical aortic valve, and history of lacunar infarction noted on previous imaging. Continue cautious anticoagulation, heparin bridge, goal INR 3, range 2.5-3.5. Continue aspirin Admission and Anticipated Discharge Date Admission Date: September 02, 2022 Subjective Patient seen in cardiology follow-up. No acute complaints. Heparin infusing without complication. Telemetry reveals sinus rhythm in the 60s. Physical Exam Constitutional: WD/WN, vitals as above Respiratory: normal respiratory effort, lungs clear to auscultation Cardiovascular: Rate/Rhythm: regular rate and regular rhythm Heart Sounds: no murmur (Prosthetic heart sounds noted, no murmur) Extremities: no edema Gastrointestinal (Abdomen): normal bowel sounds, soft, nontender, no hepatosplenomegaly Neurologic: PERRL, EOMI, accommodation nl, no face palsy, no dysarthria Results & Data ([facility]) Vital Signs (Past 12 Hours) Vital Signs Temp Pulse Pulse Resp BP BP Pulse Ox 09/10/22 11:10 36.3 C L 64 20 96/62 L 98 09/10/22 07:00 66 09/10/22 07:09 36.7 C 67 19 109/67 92 09/10/22 04:02 36.9 C 72 16 123/78 95 O2 Del Method 09/10/22 11:10 Room Air 09/10/22 07:00 09/10/22 07:09 Room Air 09/10/22 04:02 Room Air
--- NOTE | 2022-09-10 16:25 | Hospitalist Progress Note ---
Date of Service September 10, 2022 Assessment & Plan (1) Iron deficiency anemia: Plan: Symptomatic anemia Present on admission with low hemoglobin. She has been having fatigue and shortness of breath Hemoglobin on admission 6.3 No active bleeding but FOBT faintly positive Received 3 unit of PRBC during hospital course, hgb stable today GI workup (EGD/CSP) was negative for occult bleed. S/P EGD showed normal esophagus. Normal stomach. Normal duodenal bulb and second portion of the duodenum. S/P colonoscopy showed scattered small and large-mouthed diverticula were found in the sigmoid colon. She will need a repeat colonoscopy in 1 yr as per gastro INR subtherapeutic, and on heparin drip. OK to transition her to Lovenox bridge, however, looking to coordinate her getting an injection at anticoag clinic or PCP clinic as she cannot inject herself. CHRISTO monday to assess for periapical valve disease that may be contributing to her anemia. (2) Localized swelling of left lower extremity: Plan: resolved although BNP was elevated this am. As she is asymptomatic at rest and is euvolemic, hold on diuretic therapy at this time. Cont GDMT for nonischemic cardiomyopathy. (3) NSVT (nonsustained ventricular tachycardia): Plan: not persistent. Cardiology following, has known cardiomyopathy. (4) S/P AVR (aortic valve replacement): (5) S/P MVR (mitral valve replacement): Plan: s/p AVR s/p MVR: Severe valvular disease requiring replacement of mitral valve, tricuspid valve, aortic valve Received Vit K for the preparation of scope INR 1.9 today with coumadin given for the last 2 days. Continue IV heparin drip bridging with Coumadin Cont coumadin at home dose 7.5 and monitor INR daily. Goal is 3.0, currently 2.4 Cont heparin until repeat check in am. (6) Non-ischemic cardiomyopathy: Plan: Chronic, decreased EF on recent echo to 30-35%. Per cards, may consider resynchronization therapy as she is on GDMT. Cont current therapy for now. CHRISTO on Monday to assess prosthetic valves. (7) H/O Hodgkin's lymphoma: Plan: Status post ABVD chemotherapy and XRT to her chest. (8) Dysuria: Plan: Complaint of dysuria A positive for Leukocyte and bacteria Repeat urine cx grew multi organisms (contamination) and UTI ruled out Received IV ceftriaxone (4 doses), discontinued stable (9) DM2 (diabetes mellitus, type 2): Plan: A1c reflects good control at 6.3. Currenlty at inpatient goal. Continue to Hold metformin while inpatient and give short acting insulin for carb coverage and correction factor as needed. Continue monitor blood sugar (10) Hypothyroidism: Plan: Chronic, stable continue Synthroid replacement per home regimen. (11) HTN (hypertension): Plan: Chronic, stable with some hypotension overnight. Currently antihypertensives are held. (12) DVT prophylaxis: Plan: Coumadin, Heparin drip Full code Disposition -to home after the weekend. Elizabeth Driver DO [facility] Hospitalist Admission and Anticipated Discharge Date Admission Date: September 02, 2022 Subjective 52 yo F presented for symptomatic iron deficiency anemia. No issues today Specifically denies chest pain, SOB or other issues. Review of Systems Review of Systems: All systems reviewed negative except as indicated above. Physical Exam Physical Exam: CONSTITUTIONAL: WNWD, vitals as above, generally well- appearing, NAD EYES: normal conjunctivae, no scleral icterus ENT: external ear and nose normal, MMM NECK: trachea midline, RESPIRATORY: clear to auscultation bilaterally, no crackles, rales or wheezes, normal respiratory effort CARDIOVASCULAR: regular rate and rhythm, S1 and 2 heard without murmurs, mechanical click audible, no gallops or rubs, no JVD, no peripheral edema. CHEST: inspection of chest was normal GASTROINTESTINAL: soft, nontender, ND, no guarding MUSCULOSKELETAL: strength 5/5 throughout, head is normocephalic and atraumatic SKIN: warm and dry NEUROLOGIC: CN 2-12 grossly intact, no sensory deficit, normal cognition, normal speech, no tremor PSYCHIATRIC: alert cooperative and oriented to person, place and time. Results & Data Results & Data ([facility]) Vital Signs (Past 12 Hours) Vital Signs Temp Pulse Pulse Resp BP BP Pulse Ox 09/10/22 15:11 36.5 C 68 18 113/66 95 09/10/22 11:10 36.3 C L 64 20 96/62 L 98 09/10/22 07:00 66 09/10/22 07:09 36.7 C 67 19 109/67 92 O2 Del Method 09/10/22 15:11 Room Air 09/10/22 11:10 Room Air 09/10/22 07:00 09/10/22 07:09 Room Air Medications Administered Current Inpatient Medications Aspirin (Aspirin 81 Mg Ectab) 81 mg PO QAM [facility] Stop: 10/04/22 08:59 Last Admin: 09/10/22 08:10 Dose: 81 mg Atorvastatin Calcium (Atorvastatin 40 Mg Tab) 40 mg PO QAM [facility] Stop: 10/03/22 08:59 Last Admin: 09/10/22 08:10 Dose: 40 mg Buspirone HCl (Buspirone 5 Mg Tab) 5 mg PO BID PRN PRN Reason: Anxiety Stop: 10/02/22 20:32 Citalopram Hydrobromide (Citalopram 20 Mg Tab) 20 mg PO DAILY [facility] Stop: 10/03/22 08:59 Last Admin: 09/10/22 08:10 Dose: 20 mg Dextrose (Dextrose 50% 50 Ml Syringe) 25 - 50 ml IV UD PRN; Protocol PRN Reason: Hypoglycemia Protocol Stop: 10/02/22 20:32 Gabapentin (Gabapentin 100 Mg Cap) 100 mg PO HS [facility] Stop: 10/02/22 20:59 Last Admin: 09/09/22 20:24 Dose: 100 mg Glucagon (Glucagon For Inj 1 Mg Vial) 1 mg SQ UD PRN; Protocol PRN Reason: Hypoglycemia Protocol Stop: 10/02/22 20:32 Glucose (Glucose 10 Tab/Tube) 4 - 8 tab PO UD PRN; Protocol PRN Reason: Hypoglycemia Treatment Stop: 10/02/22 20:32 Glucose (Glucose 40% Gel 15 Gm Tube) 15 - 30 gm PO UD PRN; Protocol PRN Reason: Hypoglycemia Protocol Stop: 10/02/22 20:32 Heparin Sodium/Dextrose (Heparin Sodium/Dextrose) 25,000 units in 500 mls @ 21 mls/hr IV .[id number] [facility]; Protocol Stop: 10/06/22 12:44 Last Titration: 09/10/22 13:24 Dose: 1,050 units/hr, 21 mls/hr Lansoprazole (Lansoprazole 30 Mg Soltab) [facility] Stop: 10/09/22 08:59 Last Admin: 09/10/22 08:10 Dose: 30 mg Levothyroxine Sodium (Levothyroxine Sodium 75 Mcg Tablet) [facility]: 10/03/22 07:44 Last Admin: 09/10/22 05:56 Dose: 75 mcg Losartan Potassium (Losartan Potassium 25 Mg Tab) 12.5 mg PO QAM [facility] Stop: 10/03/22 08:59 Last Admin: 09/10/22 08:09 Dose: 12.5 mg Metoprolol Succinate (Metoprolol Succ 25mg Ext Rel Tab) 25 mg PO DAILY [facility] Stop: 10/03/22 08:59 Last Admin: 09/10/22 08:09 Dose: 25 mg Miscellaneous (Carbohydrates For Hypoglycemia ) 15 - 30 gm PO UD PRN PRN Reason: Hypoglycemia Protocol Stop: 10/02/22 20:32 Multivitamins (Multivitamin Tab) 1 tab PO DAILY [facility] Stop: 10/03/22 08:59 Last Admin: 09/10/22 08:09 Dose: 1 tab Potassium Chloride (Potassium Chloride Crtab 20 Meq Tabcr) 20 meq PO DAILY [facility] Stop: 10/03/22 08:59 Last Admin: 09/10/22 08:09 Dose: 20 meq Spironolactone (Spironolactone 12.5 Mg Tab) 12.5 mg PO DAILY [facility] Stop: 10/03/22 08:59 Last Admin: 09/10/22 08:09 Dose: 12.5 mg Tolterodine Tartrate (Tolterodine Tartrate La 2 Mg Capcr) 2 mg PO DAILY [facility] Stop: 10/03/22 08:59 Last Admin: 09/10/22 08:09 Dose: 2 mg Torsemide (Torsemide 20 Mg Tab) 20 mg PO QAM [facility] Stop: 10/03/22 08:59 Last Admin: 09/10/22 08:09 Dose: 20 mg Warfarin Sodium (Warfarin Sod 7.5 Mg Tab) 7.5 mg PO DAILY@1600 [facility] Stop: 10/03/22 15:59 Last Admin: 09/09/22 16:30 Dose: 7.5 mg (1) Hypothyroidism Hypothyroidism type: due to non-medication exogenous substances Qualified Code(s): E03.2 - Hypothyroidism due to medicaments and other exogenous substances (2) HTN (hypertension) Hypertension type: unspecified Qualified Code(s): I10 - Essential (primary) hypertension
[2022-09-10] MEDS: WARFARIN SOD 7.5 MG TAB PO SCH (17:38)
[2022-09-10 20:20] LABS: Partial Thromboplastin Ratio 2.4
[2022-09-10 20:33] LABS: Partial Thromboplastin Time 64.9 Seconds (21.0-31.0)
[2022-09-10] MEDS: GABAPENTIN 100 MG CAP PO SCH (20:36)
[2022-09-11 01:58] LABS: Partial Thromboplastin Ratio 2.9
[2022-09-11 02:12] LABS: Partial Thromboplastin Time 79.8 Seconds (21.0-31.0)
[2022-09-11] MEDS: HEPARIN SODIUM/DEXTROSE 25,000 UNITS/500 ML BAG IV SCH ×3 (04:57→16:23)
[2022-09-11 05:55] LABS: Hematocrit (blood only) 30.5 % (34.1-44.9); Hemoglobin 8.6 g/dl (12.0-16.0); Mean Corpuscular Hemoglobin 21.9 pg (25.0-34.0); Mean Corpuscular Hgb Conc 28.2 g/dL (32.0-36.0); Mean Corpuscular Volume 77.6 fL (80.0-100.0); Mean Platelet Volume 9.4 fL (9.4-12.3); Nucleated RBC # (auto) 0.09 K/uL (0-0); Nucleated RBC % (auto) 1.3 %; Platelet Count 279 K/uL (130-400); RDW Coefficient of Variation 24.9 % (11.5-14.5); RDW Standard Deviation 68.4 fL (36.4-46.3); Red Blood Count 3.93 M/uL (3.93-5.22); White Blood Count 7.09 K/ul (4.8-10.8)
[2022-09-11 06:09] LABS: INR 2.4 (0.9-1.1); Prothrombin Time 24.3 Seconds (9.0-12.0)
[2022-09-11 06:12] LABS: BUN Creatinine Ratio 22.7 (10-20); Calcium 8.9 mg/dl (8.5-10.1); Creatinine Clr Calc Pharmacy 105.6 ml/min; Est GFR (African American) 116.9 ml/min; Est GFR (Non-African American) 100.9 ml/min; Potassium 4.1 mmol/L (3.5-5.1)
[2022-09-11] MEDS: LEVOTHYROXINE SODIUM 75 MCG TABLET PO SCH (06:14)
[2022-09-11] MEDS: LOSARTAN POTASSIUM 25 MG TAB PO SCH (07:59)
[2022-09-11] MEDS: SPIRONOLACTONE 12.5 MG TAB PO SCH (07:59)
[2022-09-11] MEDS: TORSEMIDE 20 MG TAB PO SCH (07:59)
[2022-09-11] MEDS: POTASSIUM CHLORIDE CRTAB 20 MEQ TABCR PO SCH (08:00)
[2022-09-11] MEDS: LANSOPRAZOLE 30 MG SOLTAB PO SCH (08:00)
[2022-09-11] MEDS: MULTIVITAMIN TAB PO SCH (08:01)
[2022-09-11] MEDS: CITALOPRAM 20 MG TAB PO SCH (08:02)
[2022-09-11] MEDS: ASPIRIN 81 MG ECTAB PO SCH (08:02)
[2022-09-11] MEDS: ATORVASTATIN 40 MG TAB PO SCH (08:02)
[2022-09-11] MEDS: TOLTERODINE TARTRATE LA 2 MG CAPCR PO SCH (08:03)
[2022-09-11 08:33] LABS: Partial Thromboplastin Ratio 2.7
[2022-09-11 08:37] LABS: Partial Thromboplastin Time 73.7 Seconds (21.0-31.0)
[2022-09-11] MEDS: METOPROLOL SUCC 25MG EXT REL TAB PO SCH (09:51)
--- NOTE | 2022-09-11 09:54 | Hospitalist Progress Note ---
Date of Service September 11, 2022 Assessment & Plan (1) Iron deficiency anemia: Plan: Symptomatic anemia Present on admission with low hemoglobin. She has been having fatigue and shortness of breath Hemoglobin on admission 6.3 No active bleeding but FOBT faintly positive Received 3 unit of PRBC during hospital course, hgb stable today GI workup (EGD/CSP) was negative for occult bleed. S/P EGD showed normal esophagus. Normal stomach. Normal duodenal bulb and second portion of the duodenum. S/P colonoscopy showed scattered small and large-mouthed diverticula were found in the sigmoid colon. She will need a repeat colonoscopy in 1 yr as per gastro INR subtherapeutic, and on heparin drip. OK to transition her to Lovenox bridge, however, looking to coordinate her getting an injection at anticoag clinic or PCP clinic as she cannot inject herself. CHRISTO monday to assess for periapical valve disease that may be contributing to her anemia. INR still 2.4, give warfarin 10mg today then resume 7.5mg dosing tomorrow. Cont heparin infusion (2) Localized swelling of left lower extremity: Plan: resolved, asymptomatic. Cont GDMT for nonischemic cardiomyopathy. (3) NSVT (nonsustained ventricular tachycardia): Plan: not persistent. Cardiology following, has known cardiomyopathy. (4) S/P AVR (aortic valve replacement): (5) S/P MVR (mitral valve replacement): Plan: s/p AVR s/p MVR: Severe valvular disease requiring replacement of mitral valve, tricuspid valve, aortic valve Received Vit K for the preparation of scope bridging therapy as above. (6) Non-ischemic cardiomyopathy: Plan: Chronic, decreased EF on recent echo to 30-35%. Per cards, may consider resynchronization therapy as she has been on GDMT. Cont current therapy for now. CHRISTO on Monday to assess prosthetic valves. (7) H/O Hodgkin's lymphoma: Plan: Status post ABVD chemotherapy and XRT to her chest. (8) Dysuria: Plan: reported dysuria A positive for Leukocyte and bacteria Repeat urine cx grew multi organisms (contamination) and UTI ruled out Received IV ceftriaxone (4 doses), discontinued stable (9) DM2 (diabetes mellitus, type 2): Plan: A1c reflects good control at 6.3. Currenlty at inpatient goal. Continue to Hold metformin while inpatient and give short acting insulin for carb coverage and correction factor as needed. Continue monitor blood sugar (10) Hypothyroidism: Plan: Chronic, stable continue Synthroid replacement per home regimen. (11) HTN (hypertension): Plan: Chronic, stable with some hypotension overnight. Currently antihypertensives are held. (12) DVT prophylaxis: Plan: Coumadin, Heparin drip Full code Disposition -to home after the weekend. Elizabeth Driver DO [facility] Hospitalist Admission and Anticipated Discharge Date Admission Date: September 02, 2022 Subjective 52 yo F presented for symptomatic iron deficiency anemia. No issues today Specifically denies chest pain, SOB or other issues. Discussed the plan for tomorrow. All questions were answered. Review of Systems Review of Systems: All systems reviewed negative except as indicated above. Physical Exam Physical Exam: CONSTITUTIONAL: WNWD, vitals as above, generally well- appearing, NAD EYES: normal conjunctivae, no scleral icterus ENT: external ear and nose normal, MMM NECK: trachea midline, RESPIRATORY: clear to auscultation bilaterally, no crackles, rales or wheezes, normal respiratory effort CARDIOVASCULAR: regular rate and rhythm, S1 and 2 heard without murmurs, mechanical click audible, no gallops or rubs, no JVD, no peripheral edema. CHEST: inspection of chest was normal GASTROINTESTINAL: soft, nontender, ND, no guarding MUSCULOSKELETAL: strength 5/5 throughout, head is normocephalic and atraumatic SKIN: warm and dry NEUROLOGIC: CN 2-12 grossly intact, no sensory deficit, normal cognition, normal speech, no tremor PSYCHIATRIC: alert cooperative and oriented to person, place and time. Results & Data Results & Data ([facility]) Vital Signs (Past 12 Hours) Vital Signs Temp Pulse Pulse Resp BP BP Pulse Ox 09/11/22 07:00 67 09/11/22 07:07 36.5 C 67 18 94/57 L 94 09/11/22 04:00 36.8 C 69 19 109/66 94 09/11/22 00:00 66 09/10/22 23:53 36.7 C 66 18 103/69 96 O2 Del Method 09/11/22 07:00 09/11/22 07:07 Room Air 09/11/22 04:00 Room Air 09/11/22 00:00 09/10/22 23:53 Room Air Laboratory Results Short CBC 09/11/22 Range/Units 05:42 WBC 7.09 (4.8-10.8) K/ul Hgb 8.6 L (12.0-16.0) g/dl Hct 30.5 L (34.1-44.9) % Plt Count 279 (130-400) K/uL [facility] 09/11/22 05:42 Sodium 136 Potassium 4.1 Chloride 102 Carbon Dioxide 28 BUN 15 Creatinine 0.66 Glucose 89 Calcium 8.9 Medications Administered Current Inpatient Medications Aspirin (Aspirin 81 Mg Ectab) 81 mg PO QAM [facility] Stop: 10/04/22 08:59 Last Admin: 09/11/22 08:02 Dose: 81 mg Atorvastatin Calcium (Atorvastatin 40 Mg Tab) 40 mg PO QAM [facility] Stop: 10/03/22 08:59 Last Admin: 09/11/22 08:02 Dose: 40 mg Buspirone HCl (Buspirone 5 Mg Tab) 5 mg PO BID PRN PRN Reason: Anxiety Stop: 10/02/22 20:32 Citalopram Hydrobromide (Citalopram 20 Mg Tab) 20 mg PO DAILY [facility] Stop: 10/03/22 08:59 Last Admin: 09/11/22 08:02 Dose: 20 mg Dextrose (Dextrose 50% 50 Ml Syringe) 25 - 50 ml IV UD PRN; Protocol PRN Reason: Hypoglycemia Protocol Stop: 10/02/22 20:32 Gabapentin (Gabapentin 100 Mg Cap) 100 mg PO HS [facility] Stop: 10/02/22 20:59 Last Admin: 09/10/22 20:36 Dose: 100 mg Glucagon (Glucagon For Inj 1 Mg Vial) 1 mg SQ UD PRN; Protocol PRN Reason: Hypoglycemia Protocol Stop: 10/02/22 20:32 Glucose (Glucose 10 Tab/Tube) 4 - 8 tab PO UD PRN; Protocol PRN Reason: Hypoglycemia Treatment Stop: 10/02/22 20:32 Glucose (Glucose 40% Gel 15 Gm Tube) 15 - 30 gm PO UD PRN; Protocol PRN Reason: Hypoglycemia Protocol Stop: 10/02/22 20:32 Heparin Sodium/Dextrose (Heparin Sodium/Dextrose) 25,000 units in 500 mls @ 19 mls/hr IV .Q24H HAROLDO; Protocol Stop: 10/06/22 12:44 Last Titration: 09/11/22 09:00 Dose: 950 units/hr, 19 mls/hr Lansoprazole (Lansoprazole 30 Mg Soltab) 30 mg PO QAM [facility] Stop: 10/09/22 08:59 Last Admin: 09/11/22 08:00 Dose: 30 mg Levothyroxine Sodium (Levothyroxine Sodium 75 Mcg Tablet) 75 mcg PO DAILYBB [facility] Stop: 10/03/22 07:44 Last Admin: 09/11/22 06:14 Dose: 75 mcg Losartan Potassium (Losartan Potassium 25 Mg Tab) 12.5 mg PO QAM [facility] Stop: 10/03/22 08:59 Last Admin: 09/11/22 07:59 Dose: 12.5 mg Metoprolol Succinate (Metoprolol Succ 25mg Ext Rel Tab) 25 mg PO DAILY [facility] Stop: 10/03/22 08:59 Last Admin: 09/10/22 08:09 Dose: 25 mg Miscellaneous (Carbohydrates For Hypoglycemia ) 15 - 30 gm PO UD PRN PRN Reason: Hypoglycemia Protocol Stop: 10/02/22 20:32 Multivitamins (Multivitamin Tab) 1 tab PO DAILY [facility] Stop: 10/03/22 08:59 Last Admin: 09/11/22 08:01 Dose: 1 tab Potassium Chloride (Potassium Chloride Crtab 20 Meq Tabcr) 20 meq PO DAILY [facility] Stop: 10/03/22 08:59 Last Admin: 09/11/22 08:00 Dose: 20 meq Spironolactone (Spironolactone 12.5 Mg Tab) 12.5 mg PO DAILY [facility] Stop: 10/03/22 08:59 Last Admin: 09/11/22 07:59 Dose: 12.5 mg Tolterodine Tartrate (Tolterodine Tartrate La 2 Mg Capcr) 2 mg PO DAILY [facility] Stop: 10/03/22 08:59 Last Admin: 09/11/22 08:03 Dose: 2 mg Torsemide (Torsemide 20 Mg Tab) 20 mg PO QAM [facility] Stop: 10/03/22 08:59 Last Admin: 09/11/22 07:59 Dose: 20 mg Warfarin Sodium (Warfarin Sod 7.5 Mg Tab) 7.5 mg PO DAILY@1600 [facility] Stop: 10/12/22 15:59 Warfarin Sodium (Warfarin Sod 10 Mg Tab) 10 mg PO NOW ONE Stop: 09/11/22 16:01 (1) Hypothyroidism Hypothyroidism type: due to non-medication exogenous substances Qualified Code(s): E03.2 - Hypothyroidism due to medicaments and other exogenous substances (2) HTN (hypertension) Hypertension type: unspecified Qualified Code(s): I10 - Essential (primary) hypertension
--- NOTE | 2022-09-11 11:20 | Cardiology Progress Note ---
Date of Service September 11, 2022 Assessment & Plan (1) Iron deficiency anemia: (2) Localized swelling of left lower extremity: (3) Non-ischemic cardiomyopathy: (4) NSVT (nonsustained ventricular tachycardia): (5) S/P AVR (aortic valve replacement): (6) S/P MVR (mitral valve replacement): (7) CVA (cerebral vascular accident): Plan: (1) Iron deficiency anemia: -EGD and colonoscopy relatively unrevealing. Possible source could be small bowel AVM. The patient does not note any gross blood per rectum. -Haptoglobin obtained, results pending. LDH minimally elevated at 343 units/L. Reticulocyte minimally elevated. -Plan for transesophageal echocardiogram 09/12/2022 for assessment of prosthetic valve function with regards to hemolysis, and work-up of shortness of breath. (2) Localized swelling of left lower extremity: -Venous duplex negative. Not certain if this is congestive heart failure such as venous insufficiency. No significant edema noted on exam at present. (3) Non-ischemic cardiomyopathy: -Echocardiogram performed 09/08/2022, reviewed independently, with abnormal septal motion consistent with left bundle branch block, and left ventricular dyssynchrony. As noted, valves felt to not be sufficiently assessed. Recommend pursuing a transesophageal echocardiogram for further assessment of valvular heart disease. The patient has been on a guideline based medication therapy for congestive heart failure on a chronic basis including metoprolol, losartan, spironolactone, torsemide, and ejection fraction has declined from 40-44% in 2020, to the range of 30 to 35%. Future considerations include cardiac resynchronization capable AICD. (4) NSVT (nonsustained ventricular tachycardia): Telemetry reviewed. Predominant rhythm is sinus rhythm in the 70s with occasional isolated PVCs and occasional ventricular couplets. On 09/05/2022 at 9:10 AM there was an 11 beat run of tachycardia that appears to be a supraventricular tachycardia with aberrant conduction. The QRS morphology is different than that noted with the PVCs. At present I do not see evidence of nonsustained ventricular tachycardia on telemetry. (5) S/P AVR (aortic valve replacement): -As noted above (6) S/P MVR (mitral valve replacement): -As noted above (7) CVA (cerebral vascular accident): -INR today, 09/10/2022 is 2.4. -Patient with history of mechanical mitral valve, mechanical aortic valve, and history of lacunar infarction noted on previous imaging. Continue cautious anticoagulation, heparin bridge, goal INR 3, range 2.5-3.5. Continue aspirin Plan for CHRISTO , am of 09/12. Informed consent obtained. Pt elects to proceed as planned tomorrow. NPO after MN. Continue heparin , INR 2.4 today, goal INR 3 with range of 2.5-3.5. Check INR in am. Coumadin 10 mg today. Admission and Anticipated Discharge Date Admission Date: September 02, 2022 Subjective Patient notes feeling well. Denies chest pain or SOB at rest. Remains on heparin infusion. Telemetry reveals SR in the 70s. Physical Exam Constitutional: WD/WN, vitals as above Respiratory: normal respiratory effort, lungs clear to auscultation Cardiovascular: Rate/Rhythm: regular rate and regular rhythm Heart Sounds: no murmur (Prosthetic heart sounds noted, no murmur) Extremities: no edema Gastrointestinal (Abdomen): normal bowel sounds, soft, nontender, no hepatosplenomegaly Neurologic: PERRL, EOMI, accommodation nl, no face palsy, no dysarthria Results & Data ([facility]) Vital Signs (Past 12 Hours) Vital Signs Temp Pulse Pulse Resp BP BP Pulse Ox 09/11/22 08:00 09/11/22 09:50 66 102/68 09/11/22 07:00 67 09/11/22 07:07 36.5 C 67 18 94/57 L 94 09/11/22 04:00 36.8 C 69 19 109/66 94 09/11/22 00:00 66 09/10/22 23:53 36.7 C 66 18 103/69 96 O2 Del Method 09/11/22 08:00 Room Air 09/11/22 09:50 09/11/22 07:00 09/11/22 07:07 Room Air 09/11/22 04:00 Room Air 09/11/22 00:00 09/10/22 23:53 Room Air
--- NOTE | 2022-09-11 11:28 | Communication Note ---
Date of Service: September 11, 2022 Will hold heparin at 4 am 09/12 for CHRISTO . Order entered.
[2022-09-11 14:48] LABS: Partial Thromboplastin Ratio 2.5
[2022-09-11 15:03] LABS: Partial Thromboplastin Time 67.8 Seconds (21.0-31.0)
[2022-09-11] MEDS ORDERED: WARFARIN SOD 10 MG TAB PO ONE (16:00)
[2022-09-11] MEDS: GABAPENTIN 100 MG CAP PO SCH (20:33)
[2022-09-11 21:13] LABS: Partial Thromboplastin Ratio 2.3
[2022-09-11 21:18] LABS: Partial Thromboplastin Time 62.6 Seconds (21.0-31.0)
[2022-09-12 02:19] LABS: INR 2.7 (0.9-1.1); Prothrombin Time 26.8 Seconds (9.0-12.0)
[2022-09-12 02:34] LABS: Partial Thromboplastin Ratio 2.5
[2022-09-12 02:38] LABS: Partial Thromboplastin Time 69.8 Seconds (21.0-31.0)
[2022-09-12] MEDS ORDERED: BENZOCAINE/TETRACAIN/BUTAM 50 APPLN/5 GM CAN EXT ONE (07:04)
--- NOTE | 2022-09-12 07:08 | Anesthesiology Consultation ---
Date of Service September 12, 2022 Assessment & Plan (1) Encounter for pre-operative examination: History Surgery Operation Date: 09/06/22 16:45 Proposed Procedures p Colonoscopy EGD Dr. Rodrigues - Horace Rodrigues MD Operation Date: 09/12/22 07:15 Proposed Procedures p Transesophageal Echo w/Anesthesia - Arturo Edwards DO Height/Weight Height: 5 ft 2 in Weight: 93.8 kg Allergies Allergy/AdvReac Type Severity Reaction Status Date / Time kiwi Allergy SV TONGUE Verified 09/02/22 16:49 SWELLS No Known Drug Allergies Allergy Unknown Unknown Unverified 09/02/22 16:49 Medications Home Medications Medication Instructions Recorded Confirmed Last Taken acyclovir 5 % topical cream 1 applic topical DIRECTED 09/02/22 09/02/22 Unknown aspirin 81 mg tablet,delayed 162 mg PO DAILY 09/02/22 09/02/22 Unknown release atorvastatin 40 mg tablet 40 mg PO QAM 09/02/22 09/02/22 Unknown buspirone 5 mg tablet 5 mg PO BID PRN Anxiety 09/02/22 09/02/22 Unknown citalopram 20 mg tablet 20 mg PO DAILY 09/02/22 09/02/22 Unknown diclofenac sodium 1 % topical gel 2 g topical BID PRN Pain 09/02/22 09/02/22 Unknown gabapentin 100 mg capsule 100 mg PO HS 09/02/22 09/02/22 Unknown lansoprazole 30 mg capsule,delayed 30 mg PO QAM 09/02/22 09/02/22 Unknown release levothyroxine 75 mcg tablet 75 mcg PO QAM 09/02/22 09/02/22 Unknown (Euthyrox) losartan 25 mg tablet 12.5 mg PO QAM 09/02/22 09/02/22 Unknown metformin 500 mg tablet 500 mg PO QAM 09/02/22 09/02/22 Unknown metoprolol succinate 25 mg 25 mg PO DAILY 09/02/22 09/02/22 Unknown tablet,extended release 24 hr multivitamin 1 tab PO DAILY 09/02/22 09/02/22 Unknown potassium chloride 20 mEq 20 meq PO DAILY 09/02/22 09/02/22 Unknown tablet,extended release (K-Tab) spironolactone 25 mg tablet 12.5 mg PO DAILY 09/02/22 09/02/22 Unknown tolterodine 2 mg capsule,extended 2 mg PO DAILY 09/02/22 09/02/22 Unknown release 24 hr torsemide 20 mg tablet 20 mg PO QAM 09/02/22 09/02/22 Unknown torsemide 20 mg tablet 20 mg PO QPM PRN Fluid Retention 09/02/22 09/02/22 Unknown warfarin 5 mg tablet 7.5 mg PO .[id number] 09/02/22 09/02/22 09/01/22 19:30 warfarin 5 mg tablet 10 mg PO .QMON 09/02/22 09/02/22 Unknown Active Medications Generic Name Dose Route Start Last Admin Trade Name Freq PRN Reason Stop Dose Admin Aspirin 81 mg 09/04/22 09:00 09/11/22 08:02 Aspirin 81 Mg Ectab PO 10/04/22 08:59 81 mg QAM HAROLDO Administration Atorvastatin Calcium 40 mg 09/03/22 09:00 09/11/22 08:02 Atorvastatin 40 Mg Tab PO 10/03/22 08:59 40 mg QAM HAROLDO Administration Citalopram Hydrobromide 20 mg 09/03/22 09:00 09/11/22 08:02 Citalopram 20 Mg Tab PO 10/03/22 08:59 20 mg DAILY HAROLDO Administration Gabapentin 100 mg 09/02/22 21:00 09/11/22 20:33 Gabapentin 100 Mg Cap PO 10/02/22 20:59 100 mg HS HAROLDO Administration Heparin Sodium/Dextrose 25,000 units in 500 mls @ 0 mls/hr 09/06/22 12:45 09/12/22 03:59 Heparin Sodium/Dextrose IV 10/06/22 12:44 0 units/hr .Q0M HAROLDO 0 mls/hr Titration Protocol 0 UNITS/HR Lansoprazole 30 mg 09/09/22 09:00 09/11/22 08:00 Lansoprazole 30 Mg Soltab PO 10/09/22 08:59 30 mg QAM HAROLDO Administration Levothyroxine Sodium 75 mcg 09/03/22 07:45 09/11/22 06:14 Levothyroxine Sodium 75 Mcg Tablet PO 10/03/22 07:44 75 mcg DAILYBB [facility]OLDO Administration Losartan Potassium 12.5 mg 09/03/22 09:00 09/11/22 07:59 Losartan Potassium 25 Mg Tab PO 10/03/22 08:59 12.5 mg QAM HAROLDO Administration Metoprolol Succinate 25 mg 09/03/22 09:00 09/11/22 09:51 Metoprolol Succ 25mg Ext Rel Tab PO 10/03/22 08:59 25 mg DAILY HAROLDO Administration Multivitamins 1 tab 09/03/22 09:00 09/11/22 08:01 Multivitamin Tab PO 10/03/22 08:59 1 tab DAILY [facility]OLDO Administration Potassium Chloride 20 meq 09/03/22 09:00 09/11/22 08:00 Potassium Chloride Crtab 20 Meq Tabcr PO 10/03/22 08:59 20 meq DAILY [facility]OLDO Administration Spironolactone 12.5 mg 09/03/22 09:00 09/11/22 07:59 Spironolactone 12.5 Mg Tab PO 10/03/22 08:59 12.5 mg DAILY HAROLDO Administration Tolterodine Tartrate 2 mg 09/03/22 09:00 09/11/22 08:03 Tolterodine Tartrate La 2 Mg Capcr PO 10/03/22 08:59 2 mg DAILY [facility]OLDO Administration Torsemide 20 mg 09/03/22 09:00 09/11/22 07:59 Torsemide 20 Mg Tab PO 10/03/22 08:59 20 mg QAM [facility] Administration NPO Date Last Intake of Fluids: 09/06/22 Time Last Intake of Fluids: 07:30 Date Last Intake of Solids: 09/01/22 Time Last Intake of Solids: 18:00 Past Medical History Medical History Atrial flutter DM2 (diabetes mellitus, type 2) Encounter for pre-operative examination GERD (gastroesophageal reflux disease) GIB (gastrointestinal bleeding) H/O Hodgkin's lymphoma "s/p chemo and radiation " HTN (hypertension) Hypothyroidism Mood disorder Obstructive sleep apnea of adult Rheumatic heart disease Severe mitral regurgitation Volume overload Past Family History Family History Other No pertinent family history in first degree relatives Past Surgical History Surgical History S/P cholecystectomy Social History Smoking Status: Current some day smoker tobacco type: cigarettes Hx Alcohol Use: Yes Alcohol type: wine alcohol intake frequency: 0-2 drinks per day Hx Substance Use: No Physical Exam Vital Signs Last Vital Signs Temp 36.9 C 09/12/22 04:03 Pulse 69 09/12/22 04:03 Resp 16 09/12/22 04:03 BP 106/69 09/12/22 04:03 Pulse Ox 93 09/12/22 04:03 O2 Del Method 09/12/22 04:03 FiO2 21 09/08/22 07:29 Testing Laboratory Results 09/11/22 05:42 09/11/22 05:42 PT 26.8 Seconds (9.0-12.0) H 09/12/22 01:52 INR 2.7 (0.9-1.1) H 09/12/22 01:52 APTT 69.8 Seconds (21.0-31.0) H* 09/12/22 01:52 Hemoglobin A1c 6.3 % (4.5-5.6) H 09/03/22 02:09 Urine Color Dark Yellow 09/03/22 20:53 Urine Appearance Cloudy (Clear) A 09/03/22 20:53 Urine pH 6.5 (4.5-7.5) 09/03/22 20:53 Ur Specific [place] 1.018 (1.000-1.030) 09/03/22 20:53 Urine Protein Trace (Negative) H 09/03/22 20:53 Urine Glucose (UA) Negative (Negative) 09/03/22 20:53 Urine Ketones Negative (Negative) 09/03/22 20:53 Urine Nitrite Negative (Negative) 09/03/22 20:53 Ur Leukocyte Esterase 2+ (Negative) H 09/03/22 20:53 Urine WBC (Auto) >30 /hpf (0-5) H 09/03/22 20:53 Urine RBC (Auto) 0-4 /hpf (0-4) 09/03/22 20:53 U Hyaline Cast (Auto) 1-5 /lpf (0-5) 09/03/22 20:53 U Epithel Cells (Auto) >30 /lpf (0-5) H 09/03/22 20:53 Urine Bacteria (Auto) 1+ (Negative) H 09/03/22 20:53 Urine Test Negative (Negative) 09/02/22 13:47 Blood Type O Negative 09/02/22 14:21 Antibody Screen NEGATIVE 09/02/22 14:21 09/03/22 20:53 Urine Culture - Final Urine,Clean Catch More than three types of organisms present, all moderate counts mixed probable skin eliana. No further identifications or sensitivities to follow. 09/02/22 13:47 Urine Culture - Final Urine,Clean Catch More than three types of organisms present, all moderate counts mixed probable skin eliana. No further identifications or sensitivities to follow. 09/11/22 20:21 POC Glucose 135 H Electrocardiogram Date: 09/02/22 Test Reason : Blood Pressure : / mmHG Vent. Rate : 083 BPM Atrial Rate : 083 BPM P-R Int : 206 ms QRS Dur : 140 ms QT Int : 464 ms P-R-T Axes : 068 -36 113 degrees QTc Int : 545 ms Normal sinus rhythm Left axis deviation Left bundle branch block Abnormal ECG When compared with ECG of 17-JAN-2021 10:02, QRS axis Shifted left Confirmed by [place] ([id number]) on 09/02/2022 6:24:01 PM Chest X-Ray Date: 09/03/22 XR chest 1V portable HISTORY: 52 years-old Female post-operative coughing and wheezing acute cough with wheezing COMPARISON: Chest radiographs 09/02/2022 TECHNIQUE: AP view of the chest FINDINGS: Cardiac silhouette is enlarged. Prior median sternotomy with cardiac valvular prosthesis. No pneumothorax, large pleural effusion or lobar airspace consolidation. Pulmonary vascular congestion. The bones appear grossly intact. IMPRESSION: Cardiomegaly with pulmonary vascular congestion.
--- NOTE | 2022-09-12 07:14 | History & Physical Bridge Note ---
Date of Service September 12, 2022 History & Physical Bridge Note I have examined the patient, reviewed the History & Physical and in the interval since the performance of the History & Physical I have noted the following changes of clinical significance: no changes noted. INR 2.7. Heparin discontinued. Informed consent for CHRISTO obtained. Pt elects to proceed.
[2022-09-12] MEDS ORDERED: Heparin IV Adult Wt-Based Standard *NO* Bolus Protocol IV SCH (07:56)
--- NOTE | 2022-09-12 08:03 | Post Operative Brief Note ---
Cardiology Brief Post Op Date of Surgery September 12, 2022 Pre & Post Diagnosis Operation Date: 09/06/22 16:45 Pre-Op Diagnosis: LOW HGB Post-Op Diagnosis: Normal EGD, Diverticulosis Operation Date: 09/12/22 07:15 Preprocedure diagnosis: Anemia, shortness of breath, evaluate for prosthetic valve dysfunction Post procedure diagnosis: No significant prosthetic valve regurgitation, mobile echodensity adherent to the annulus of the mechanical mitral valve prosthesis suggestive of thrombus or vegetation Procedure Transesophageal echocardiogram: After informed consent was obtained and timeout was performed the patient was sedated with the assistance of the anesthesia service receiving a total of 230 mg of IV propofol, 60 mg IV lidocaine, and 300 mcg of phenylephrine for blood pressure support. The mechanical mitral valve prosthesis was well visualized with normal excursion of the prosthetic leaflets. An appropriate degree of physiologic intra prosthetic mitral valve regurgitation was observed. Without perivalvular leak. Mobile echodensities however were noted on both the medial and lateral aspects of the annulus of the mechanical mitral valve prosthesis consistent with thrombus or less likely vegetation. The mechanical aortic valve prosthesis was not well visualized. No significant regurgitation observed. The tricuspid annuloplasty ring was well-seated, with no leak around the prosthetic material. Mild intrinsic tricuspid regurgitation observed. Plan: INR 2.7 today. Resume heparin infusion Obtain blood cultures. Final Cleaner Arturo Edwards DO Sales Associate Cashier STEVEN Smith Estimated Blood Loss 0 Findings Consistent with Post-Op Diagnosis as noted above Anesthesia Type MAC Complications none
--- NOTE | 2022-09-12 08:32 | Anesthesiology Progress Note ---
Date of Service September 12, 2022 Anesthesia Post Procedure Vital Signs Vital Signs: Temp Pulse Pulse Resp BP BP Pulse Ox 09/12/22 08:05 70 14 100/58 L 98 09/12/22 08:00 68 16 98/58 L 98 09/12/22 07:53 72 16 95/53 L 98 09/12/22 07:22 72 16 90/68 L 98 09/12/22 04:03 36.9 C 69 16 106/69 93 09/11/22 23:01 73 09/11/22 22:57 36.5 C 71 18 105/64 94 09/11/22 20:00 09/11/22 19:33 36.6 C 77 18 101/67 95 09/11/22 15:54 70 09/11/22 15:37 36.4 C L 66 20 97/52 L 97 09/11/22 11:26 36.4 C L 68 19 101/64 94 09/11/22 09:50 66 102/68 O2 Del Method 09/12/22 08:05 Room Air 09/12/22 08:00 Room Air 09/12/22 07:53 Room Air 09/12/22 07:22 Room Air 09/12/22 04:03 Room Air 09/11/22 23:01 09/11/22 22:57 Room Air 09/11/22 20:00 Room Air 09/11/22 19:33 Room Air 09/11/22 15:54 09/11/22 15:37 Room Air 09/11/22 11:26 Room Air 09/11/22 09:50 Transfer of Care Handoff Completed per policy Notes Mental Status: alert / awake / arousable and participated in evaluation Patient Amnestic to Procedure: Yes Nausea / Vomiting: adequately controlled Pain: adequately controlled Airway Patency, RR, SpO2: stable & adequate BP & HR: stable & adequate Hydration State: stable & adequate Anesthetic Complications: no major complications apparent
[2022-09-12] MEDS: LEVOTHYROXINE SODIUM 75 MCG TABLET PO SCH (08:45)
[2022-09-12] MEDS: ASPIRIN 81 MG ECTAB PO SCH (08:45)
[2022-09-12] MEDS: ATORVASTATIN 40 MG TAB PO SCH (08:46)
[2022-09-12] MEDS: LANSOPRAZOLE 30 MG SOLTAB PO SCH (08:47)
[2022-09-12] MEDS: CITALOPRAM 20 MG TAB PO SCH (08:47)
[2022-09-12] MEDS: LOSARTAN POTASSIUM 25 MG TAB PO SCH (08:48)
[2022-09-12] MEDS: METOPROLOL SUCC 25MG EXT REL TAB PO SCH (08:51)
[2022-09-12] MEDS: TOLTERODINE TARTRATE LA 2 MG CAPCR PO SCH (08:52)
[2022-09-12] MEDS: POTASSIUM CHLORIDE CRTAB 20 MEQ TABCR PO SCH (08:52)
[2022-09-12] MEDS: SPIRONOLACTONE 12.5 MG TAB PO SCH (08:52)
[2022-09-12] MEDS: MULTIVITAMIN TAB PO SCH (08:52)
[2022-09-12] MEDS: TORSEMIDE 20 MG TAB PO SCH (08:53)
[2022-09-12 09:30] LABS: Mean Corpuscular Hemoglobin 21.5 pg (25.0-34.0); Mean Corpuscular Hgb Conc 27.3 g/dL (32.0-36.0); Mean Corpuscular Volume 78.8 fL (80.0-100.0); Mean Platelet Volume 9.3 fL (9.4-12.3); Nucleated RBC # (auto) 0.03 K/uL (0-0); Nucleated RBC % (auto) 0.5 %; Platelet Count 300 K/uL (130-400); RDW Coefficient of Variation 25.2 % (11.5-14.5); RDW Standard Deviation 70.3 fL (36.4-46.3); Red Blood Count 4.19 M/uL (3.93-5.22)
[2022-09-12] MEDS: HEPARIN SODIUM/DEXTROSE 25,000 UNITS/500 ML BAG IV SCH ×2 (09:32→14:48)
[2022-09-12 09:34] LABS: Albumin Globulin Ratio 0.9 (0.9-2); Albumin Level 3.6 gm/dl (3.4-5.0); BUN Creatinine Ratio 19.7 (10-20); Bilirubin,Total 1.4 mg/dl (0.2-1.0); Calcium 8.9 mg/dl (8.5-10.1); Creatinine Clr Calc Pharmacy 97.8 ml/min; Est GFR (African American) 112.7 ml/min; Est GFR (Non-African American) 97.2 ml/min; Globulin 3.8 gm/dl (2.5-4.0); Potassium 4.3 mmol/L (3.5-5.1); Total Protein 7.4 gm/dl (6.0-8.3)
[2022-09-12 09:35] LABS: Anisocytosis Present; Basophils # (auto) 0.08 K/uL (0-0.2); Basophils % (auto) 1.5 %; Eosinophils # (auto) 0.23 K/uL (0-0.50); Eosinophils % (auto) 4.2 %; Immature Granulocytes # (auto) 0.05 K/uL (0.00-0.02); Immature Granulocytes % (auto) 0.9 %; Lymphocytes # (auto) 0.95 K/uL (1.2-3.4); Lymphocytes % (auto) 17.3 %; Monocytes % (auto) 14.5 %; Neutrophils # (auto) 3.39 K/uL (1.4-6.5); Neutrophils % (auto) 61.6 %; Poikilocytosis Present; Polychromasia 1+; Spherocytes 1+
--- NOTE | 2022-09-12 09:49 | Cardiology Progress Note ---
Date of Service September 12, 2022 Assessment & Plan (1) Iron deficiency anemia: (2) Localized swelling of left lower extremity: (3) Non-ischemic cardiomyopathy: (4) NSVT (nonsustained ventricular tachycardia): (5) S/P AVR (aortic valve replacement): (6) S/P MVR (mitral valve replacement): (7) CVA (cerebral vascular accident): Plan: (1) Iron deficiency anemia: -EGD and colonoscopy relatively unrevealing. Possible source could be small bowel AVM. The patient does not note any gross blood per rectum. -Haptoglobin obtained, results pending. LDH minimally elevated at 343 units/L. Reticulocyte minimally elevated. -Plan for transesophageal echocardiogram 09/12/2022 for assessment of prosthetic valve function with regards to hemolysis, and work-up of shortness of breath. (2) Localized swelling of left lower extremity: -Venous duplex negative. Not certain if this is congestive heart failure such as venous insufficiency. No significant edema noted on exam at present. (3) Non-ischemic cardiomyopathy: -Echocardiogram performed 09/08/2022, reviewed independently, with abnormal septal motion consistent with left bundle branch block, and left ventricular dyssynchrony. As noted, valves felt to not be sufficiently assessed. Recommend pursuing a transesophageal echocardiogram for further assessment of valvular heart disease. The patient has been on a guideline based medication therapy for congestive heart failure on a chronic basis including metoprolol, losartan, spironolactone, torsemide, and ejection fraction has declined from 40-44% in 2020, to the range of 30 to 35%. Future considerations include cardiac resynchronization capable AICD. (4) NSVT (nonsustained ventricular tachycardia): Telemetry reviewed. Predominant rhythm is sinus rhythm in the 70s with occasional isolated PVCs and occasional ventricular couplets. On 09/05/2022 at 9:10 AM there was an 11 beat run of tachycardia that appears to be a supraventricular tachycardia with aberrant conduction. The QRS morphology is different than that noted with the PVCs. At present I do not see evidence of nonsustained ventricular tachycardia on telemetry. (5) S/P AVR (aortic valve replacement): -As noted above (6) S/P MVR (mitral valve replacement): -As noted above (7) History of CVA (cerebral vascular accident): -INR today, 09/10/2022 is 2.4. -Patient with history of mechanical mitral valve, mechanical aortic valve, and history of lacunar infarction noted on previous imaging. (8) mobile echodensity on mitral valve prosthesis -CHRISTO with no evidence of perivalvular leak (potential cause of hemolysis/ anemia). -Did have unexpected finding of two mobile echo densities on the left atrial aspect of the MV annulus consistent with thrombus (most likely) or less likely vegetation. -Check blood cultures, ESR, CRP. Resume heparin, coumadin. Goal INR to be increased to 3-3.5. Will likely need repeat CHRISTO in 5 weeks. Admission and Anticipated Discharge Date Admission Date: September 02, 2022 Subjective Patient seen in follow up. No complaints. SOB better than it was 2 days ago. No LE edema. Physical Exam Constitutional: WD/WN, vitals as above Respiratory: normal respiratory effort, lungs clear to auscultation Cardiovascular: Rate/Rhythm: regular rate and regular rhythm Heart Sounds: no murmur (Prosthetic heart sounds noted, no murmur) Extremities: no edema Gastrointestinal (Abdomen): normal bowel sounds, soft, nontender, no hepatosplenomegaly Neurologic: PERRL, EOMI, accommodation nl, no face palsy, no dysarthria Results & Data ([facility]) Vital Signs (Past 12 Hours) Vital Signs Temp Pulse Pulse Resp BP Pulse Ox O2 Del Method 09/12/22 08:27 60 18 103/66 Room Air 09/12/22 08:05 70 14 100/58 L 98 Room Air 09/12/22 08:00 68 16 98/58 L 98 Room Air 09/12/22 07:53 72 16 95/53 L 98 Room Air 09/12/22 07:22 72 16 90/68 L 98 Room Air 09/12/22 04:03 36.9 C 69 16 106/69 93 Room Air 09/11/22 23:01 73 09/11/22 22:57 36.5 C 71 18 105/64 94 Room Air Laboratory Results Cardiac Enzymes 09/12/22 Range/Units 08:42 AST 34 (13-39) U/L Coagulation INR 2.7 09/11/22 09/11/22 09/12/22 Range/Units 14:06 20:04 01:52 PT 26.8 H (9.0-12.0) Seconds APTT 67.8 H* 62.6 H* (21.0-31.0) Seconds 09/12/22 Range/Units 01:52 PT (9.0-12.0) Seconds APTT 69.8 H* (21.0-31.0) Seconds CBC 09/12/22 Range/Units 08:42 WBC 5.50 (4.8-10.8) K/ul RBC 4.19 (3.93-5.22) M/uL Hgb 9.0 L (12.0-16.0) g/dl Hct 33.0 L (34.1-44.9) % Plt Count 300 (130-400) K/uL Neut # (Auto) 3.39 (1.4-6.5) K/uL Lymph # (Auto) 0.95 L (1.2-3.4) K/uL [place] # (Auto) 0.80 (0.24-0.82) K/uL Eos # (Auto) 0.23 (0-0.50) K/uL Baso # (Auto) 0.08 (0-0.2) K/uL Comprehensive Metabolic Panel 09/12/22 Range/Units 08:42 Sodium 138 (136-145) mmol/L Potassium 4.3 (3.5-5.1) mmol/L Chloride 104 (98-107) mmol/L Carbon Dioxide 29 (21-32) mmol/L BUN 14 (6-23) mg/dl Creatinine 0.71 (0.6-1.2) mg/dl Glucose 89 (70-99(Fasting)) mg/dl Calcium 8.9 (8.5-10.1) mg/dl AST 34 (13-39) U/L ALT 37 (7-52) U/L Alkaline Phosphatase 129 H (34-104) U/L Total Protein 7.4 (6.0-8.3) gm/dl Albumin 3.6 (3.4-5.0) gm/dl Intake and Output 09/11/22 09/12/22 09/12/22 22:59 06:59 14:59 Intake Total 565.9 / 1667.45 230.55 / 1667.45 Balance 565.9 / 1667.45 230.55 / 1667.45 Intake: IV 115.9 / 427.45 230.55 / 427.45 Heparin Sodium/Dextrose 25,000 115.9 / 427.45 230.55 / 427.45 units In 500 ml @ 900 UNITS/HR 18 mls/hr IV .Q24H HAROLDO Rx#: [id number] Oral 450 / 1240 Other: # Unmeasured Voids 1 Weight 93.8 kg 93.8 kg Weight Measurement Method Built in [facility] Patient Weight 09/13/22 06:59 Weight 93.8 kg
[2022-09-12 15:42] LABS: Partial Thromboplastin Ratio 2.2
[2022-09-12 15:45] LABS: Partial Thromboplastin Time 60.9 Seconds (21.0-31.0)
[2022-09-12] MEDS ORDERED: WARFARIN SOD 7.5 MG TAB PO SCH (16:00)
[2022-09-12] MEDS ORDERED: WARFARIN SOD 10 MG TAB PO SCH (16:00)
[2022-09-12] MEDS: FERROUS SULFATE 325 MG TAB PO SCH (17:10)
--- NOTE | 2022-09-12 17:53 | Hospitalist Progress Note ---
Date of Service September 12, 2022 Assessment & Plan (1) Iron deficiency anemia: Plan: Symptomatic anemia Present on admission with low hemoglobin. She has been having fatigue and shortness of breath Hemoglobin on admission 6.3 No active bleeding but FOBT faintly positive Received 3 unit of PRBC during hospital course, hgb stable today GI workup (EGD/CSP) was negative for occult bleed. S/P EGD showed normal esophagus. Normal stomach. Normal duodenal bulb and second portion of the duodenum. S/P colonoscopy showed scattered small and large-mouthed diverticula were found in the sigmoid colon. She will need a repeat colonoscopy in 1 yr as per gastro INR subtherapeutic, and on heparin drip. OK to transition her to Lovenox bridge, however, looking to coordinate her getting an injection at anticoag clinic or PCP clinic as she cannot inject herself. CHRISTO monday to assess for periapical valve disease that may be contributing to her anemia. INR still 2.4, give warfarin 10mg today then resume 7.5mg dosing tomorrow. Cont heparin infusion 09/12: CHRISTO today revealed thrombus on mechanical heart valve. New goal INR is 3-3.5. Continue heparin infusion and increase warfarin to 10 mg daily. Trend INR daily. (2) Non-ischemic cardiomyopathy: Plan: Chronic, decreased EF on recent echo to 30-35%. Per cards, may consider resynchronization therapy as she has been on GDMT. Cont current therapy for now. TRIPLE AIR VALVE TESTER or any device cannot be placed until the mechanical valve thrombus is resolved. We will plan to repeat CHRISTO in [address] Edwards. (3) S/P AVR (aortic valve replacement): (4) S/P MVR (mitral valve replacement): Plan: s/p AVR s/p MVR: Severe valvular disease requiring replacement of mitral valve, tricuspid valve, aortic valve Received Vit K for the preparation of scope bridging therapy as above with new goal INR 3-3.5. (5) Localized swelling of left lower extremity: Plan: resolved, asymptomatic. Cont GDMT for nonischemic cardiomyopathy. (6) NSVT (nonsustained ventricular tachycardia): Plan: not persistent. Cardiology following, has known cardiomyopathy. (7) H/O Hodgkin's lymphoma: Plan: Status post ABVD chemotherapy and XRT to her chest. (8) Dysuria: Plan: reported dysuria A positive for Leukocyte and bacteria Repeat urine cx grew multi organisms (contamination) and UTI ruled out Received IV ceftriaxone (4 doses), discontinued stable (9) DM2 (diabetes mellitus, type 2): Plan: A1c reflects good control at 6.3. Currenlty at inpatient goal. Continue to Hold metformin while inpatient and give short acting insulin for carb coverage and correction factor as needed. Continue monitor blood sugar (10) Hypothyroidism: Plan: Chronic, stable continue Synthroid replacement per home regimen. (11) HTN (hypertension): Plan: Chronic, stable with some hypotension overnight. Currently antihypertensives are held. (12) DVT prophylaxis: Plan: Coumadin, Heparin drip Full code Disposition -to home likely tomorrow when INR is 3 or greater. Elizabeth Driver DO [facility] Hospitalist Admission and Anticipated Discharge Date Admission Date: September 02, 2022 Subjective 52-year-old female hospitalized for subtherapeutic INR with goal 2.5-3.5. Patient seen in follow up. No complaints. SOB better than it was 2 days ago. No LE edema. Review of Systems Review of Systems: All systems reviewed negative except as indicated above. Physical Exam Physical Exam: CONSTITUTIONAL: WNWD, vitals as above, generally well- appearing, NAD EYES: normal conjunctivae, no scleral icterus ENT: external ear and nose normal, MMM NECK: trachea midline, RESPIRATORY: clear to auscultation bilaterally, no crackles, rales or wheezes, normal respiratory effort CARDIOVASCULAR: regular rate and rhythm, S1 and 2 heard without murmurs, mechanical click audible, no gallops or rubs, no JVD, no peripheral edema. CHEST: inspection of chest was normal GASTROINTESTINAL: soft, nontender, ND, no guarding MUSCULOSKELETAL: strength 5/5 throughout, head is normocephalic and atraumatic SKIN: warm and dry NEUROLOGIC: CN 2-12 grossly intact, no sensory deficit, normal cognition, normal speech, no tremor PSYCHIATRIC: alert cooperative and oriented to person, place and time. Results & Data Results & Data ([facility]) Vital Signs (Past 12 Hours) Vital Signs Temp Pulse Resp BP BP Pulse Ox O2 Del Method 09/12/22 16:06 37 C 65 16 113/73 96 Room Air 09/12/22 11:31 36.7 C 67 18 99/56 L 93 Room Air 09/12/22 09:30 63 103/64 09/12/22 08:27 60 18 103/66 Room Air 09/12/22 08:05 70 14 100/58 L 98 Room Air 09/12/22 08:00 68 16 98/58 L 98 Room Air 09/12/22 07:53 72 16 95/53 L 98 Room Air 09/12/22 07:22 72 16 90/68 L 98 Room Air Laboratory Results Short CBC 09/12/22 Range/Units 08:42 WBC 5.50 (4.8-10.8) K/ul Hgb 9.0 L (12.0-16.0) g/dl Hct 33.0 L (34.1-44.9) % Plt Count 300 (130-400) K/uL BMP 09/12/22 08:42 Sodium 138 Potassium 4.3 Chloride 104 Carbon Dioxide 29 BUN 14 Creatinine 0.71 Glucose 89 Calcium 8.9 Liver Function 09/12/22 Range/Units 08:42 Total Bilirubin 1.4 H (0.2-1.0) mg/dl AST 34 (13-39) U/L ALT 37 (7-52) U/L Alkaline Phosphatase 129 H (34-104) U/L Albumin 3.6 (3.4-5.0) gm/dl Medications Administered Current Inpatient Medications Aspirin (Aspirin 81 Mg Ectab) 81 mg PO QAM HAROLDO Stop: 10/04/22 08:59 Last Admin: 09/12/22 08:45 Dose: 81 mg Atorvastatin Calcium (Atorvastatin 40 Mg Tab) 40 mg PO QAM HAROLDO Stop: 10/03/22 08:59 Last Admin: 09/12/22 08:46 Dose: 40 mg Buspirone HCl (Buspirone 5 Mg Tab) 5 mg PO BID PRN PRN Reason: Anxiety Stop: 10/02/22 20:32 Citalopram Hydrobromide (Citalopram 20 Mg Tab) 20 mg PO DAILY HAROLDO Stop: 10/03/22 08:59 Last Admin: 09/12/22 08:47 Dose: 20 mg Dextrose (Dextrose 50% 50 Ml Syringe) 25 - 50 ml IV UD PRN; Protocol PRN Reason: Hypoglycemia Protocol Stop: 10/02/22 20:32 Ferrous Sulfate (Ferrous Sulfate 325 Mg Tab) 325 mg PO TIDM HAROLDO Stop: 10/12/22 16:59 Last Admin: 09/12/22 17:10 Dose: 325 mg Gabapentin (Gabapentin 100 Mg Cap) 100 mg PO HS HAROLDO Stop: 10/02/22 20:59 Last Admin: 09/11/22 20:33 Dose: 100 mg Glucagon (Glucagon For Inj 1 Mg Vial) 1 mg SQ UD PRN; Protocol PRN Reason: Hypoglycemia Protocol Stop: 10/02/22 20:32 Glucose (Glucose 10 Tab/Tube) 4 - 8 tab PO UD PRN; Protocol PRN Reason: Hypoglycemia Treatment Stop: 10/02/22 20:32 Glucose (Glucose 40% Gel 15 Gm Tube) 15 - 30 gm PO UD PRN; Protocol PRN Reason: Hypoglycemia Protocol Stop: 10/02/22 20:32 Heparin Sodium/Dextrose (Heparin Sodium/Dextrose) 25,000 units in 500 mls @ 24 mls/hr IV .[id number] [facility]; Protocol Stop: 10/12/22 08:14 Last Admin: 09/12/22 09:32 Dose: 850 units/hr, 17 mls/hr Lansoprazole (Lansoprazole 30 Mg Soltab) 30 mg PO QAM [facility] Stop: 10/09/22 08:59 Last Admin: 09/12/22 08:47 Dose: 30 mg Levothyroxine Sodium (Levothyroxine Sodium 75 Mcg Tablet) 75 mcg PO DAILYBB [facility] Stop: 10/03/22 07:44 Last Admin: 09/12/22 08:45 Dose: 75 mcg Losartan Potassium (Losartan Potassium 25 Mg Tab) 12.5 mg PO QAM [facility] Stop: 10/03/22 08:59 Last Admin: 09/12/22 08:48 Dose: 12.5 mg Metoprolol Succinate (Metoprolol Succ 25mg Ext Rel Tab) 25 mg PO DAILY HAROLDO Stop: 10/03/22 08:59 Last Admin: 09/12/22 08:51 Dose: 25 mg Miscellaneous (Carbohydrates For Hypoglycemia ) 15 - 30 gm PO UD PRN PRN Reason: Hypoglycemia Protocol Stop: 10/02/22 20:32 Multivitamins (Multivitamin Tab) 1 tab PO DAILY HARODLO Stop: 10/03/22 08:59 Last Admin: 09/12/22 08:52 Dose: 1 tab Potassium Chloride (Potassium Chloride Crtab 20 Meq Tabcr) 20 meq PO DAILY [facility] Stop: 10/03/22 08:59 Last Admin: 09/12/22 08:52 Dose: 20 meq Spironolactone (Spironolactone 12.5 Mg Tab) 12.5 mg PO DAILY [facility] Stop: 10/03/22 08:59 Last Admin: 09/12/22 08:52 Dose: 12.5 mg Tolterodine Tartrate (Tolterodine Tartrate La 2 Mg Capcr) 2 mg PO DAILY [facility] Stop: 10/03/22 08:59 Last Admin: 09/12/22 08:52 Dose: 2 mg Torsemide (Torsemide 20 Mg Tab) 20 mg PO QAM [facility] Stop: 10/03/22 08:59 Last Admin: 09/12/22 08:53 Dose: 20 mg Warfarin Sodium (Warfarin Sod 10 Mg Tab) 10 mg PO DAILY@1600 [facility] Stop: 10/12/22 15:59 Last Admin: 09/12/22 17:08 Dose: 10 mg (1) Hypothyroidism Hypothyroidism type: due to non-medication exogenous substances Qualified Code(s): E03.2 - Hypothyroidism due to medicaments and other exogenous substances (2) HTN (hypertension) Hypertension type: unspecified Qualified Code(s): I10 - Essential (primary) hypertension
[2022-09-12] MEDS: GABAPENTIN 100 MG CAP PO SCH (20:02)
[2022-09-13] MEDS: LEVOTHYROXINE SODIUM 75 MCG TABLET PO SCH (05:39)
[2022-09-13 07:41] LABS: INR 3.3 (0.9-1.1); Partial Thromboplastin Ratio 2.4; Prothrombin Time 32.7 Seconds (9.0-12.0)
[2022-09-13 07:42] LABS: Partial Thromboplastin Time 66.9 Seconds (21.0-31.0)
[2022-09-13] MEDS ORDERED: STOP HEPARIN ORDER ONE (08:00)
[2022-09-13] MEDS: POTASSIUM CHLORIDE CRTAB 20 MEQ TABCR PO SCH (08:33)
[2022-09-13] MEDS: LANSOPRAZOLE 30 MG SOLTAB PO SCH (08:33)
[2022-09-13] MEDS: METOPROLOL SUCC 25MG EXT REL TAB PO SCH (08:33)
[2022-09-13] MEDS: CITALOPRAM 20 MG TAB PO SCH (08:34)
[2022-09-13] MEDS: ASPIRIN 81 MG ECTAB PO SCH (08:34)
[2022-09-13] MEDS: LOSARTAN POTASSIUM 25 MG TAB PO SCH (08:34)
[2022-09-13] MEDS: TORSEMIDE 20 MG TAB PO SCH (08:34)
[2022-09-13] MEDS: SPIRONOLACTONE 12.5 MG TAB PO SCH (08:34)
[2022-09-13] MEDS: ATORVASTATIN 40 MG TAB PO SCH (08:35)
[2022-09-13] MEDS: FERROUS SULFATE 325 MG TAB PO SCH (08:35)
[2022-09-13] MEDS: MULTIVITAMIN TAB PO SCH (08:35)
[2022-09-13] MEDS: TOLTERODINE TARTRATE LA 2 MG CAPCR PO SCH (08:35)
[2022-09-13] MEDS: HEPARIN SODIUM/DEXTROSE 25,000 UNITS/500 ML BAG IV SCH (09:31)
--- NOTE | 2022-09-13 11:22 | Discharge Summary ---
Discharge Summary Date of Service September 13, 2022 Admission HPI Per Admitting Provider This is a 50 year old female that presented to the [facility] as recommended by her outpatient PCP for a low hgb of 6.8 yesterday. Her baseline is 11-12. Today, in the ED her Hgb is 6.3 without BRBPR or any signs of active bleeding. Hemoccult showed a faint positive. Patient has reported that she is chronically SOB related to her heart condition as outlined in her PMH; however, her SOB has worsened with exertion over the past week. Patient has a complex PMH that includes: rheumatic heart disease, valvular disease requiring mitral valve replacement, aortic valve replacement (on chronic Coumadin), tricuspid valve repair, hypertension, GERD, H/O Hodgkin Lymphoma, hypothyroidism, atrial flutter, history of tobacco abuse, obesity and GERD. Because of her valvular replacement she is currently anticoagulated with warfarin and has a supratheraputic INR of 4.0. She also takes TWO baby aspirin for a total of 162 mg. Will hold both for now. Patient denies any falls. Patient denies any CURTIS, dizziness, CP, palpitations, N/V/D, skin changes, recent trauma or falls. The patient further denies recent illness.Patient was typed and crossed in the ED for 2 UPRBC. She was premedicated in the ED and will receive 2UPRBC with a dose of Lasix after the first unit. On exam, patient was lying in her hospital bed in no apparent distress. She was able to hold conversation and follow all commands. Patient receptive to admissionfor further evaluation and management. Please see A/p for further details. Principal Dx & Hospital Course #1 = Principal Diagnosis (1) Iron deficiency anemia: Symptomatic anemia Present on admission with low hemoglobin. She has been having fatigue and shortness of breath Hemoglobin on admission 6.3 No active bleeding but FOBT faintly positive Received 3 unit of PRBC during hospital course, hgb stable today GI workup (EGD/CSP) was negative for occult bleed. S/P EGD showed normal esophagus. Normal stomach. Normal duodenal bulb and second portion of the duodenum. S/P colonoscopy showed scattered small and large-mouthed diverticula were found in the sigmoid colon. She will need a repeat colonoscopy in 1 yr as per gastro INR subtherapeutic, and on heparin drip. OK to transition her to Lovenox bridge, however, looking to coordinate her getting an injection at anticoag clinic or PCP clinic as she cannot inject herself. CHRISTO monday to assess for periapical valve disease that may be contributing to her anemia. INR still 2.4, give warfarin 10mg today then resume 7.5mg dosing tomorrow. Cont heparin infusion 09/12: CHRISTO today revealed thrombus on mechanical heart valve. New goal INR is 3-3.5. Continue heparin infusion and increase warfarin to 10 mg daily. Trend INR daily. (2) Non-ischemic cardiomyopathy: Chronic, decreased EF on recent echo to 30-35%. Per cards, may consider resynchronization therapy as she has been on GDMT. Cont current therapy for now. HAND DRAWER IN or any device cannot be placed until the mechanical valve thrombus is resolved. We will plan to repeat CHRISTO in [address] Edwards. (3) S/P AVR (aortic valve replacement): (4) S/P MVR (mitral valve replacement): s/p AVR s/p MVR: Severe valvular disease requiring replacement of mitral valve, tricuspid valve, aortic valve Received Vit K for the preparation of scope bridging therapy as above with new goal INR 3-3.5. (5) Localized swelling of left lower extremity: resolved, asymptomatic. Cont GDMT for nonischemic cardiomyopathy. (6) NSVT (nonsustained ventricular tachycardia): not persistent. Cardiology following, has known cardiomyopathy. (7) H/O Hodgkin's lymphoma: Status post ABVD chemotherapy and XRT to her chest. (8) Dysuria: reported dysuria A positive for Leukocyte and bacteria Repeat urine cx grew multi organisms (contamination) and UTI ruled out Received IV ceftriaxone (4 doses), discontinued stable (9) DM2 (diabetes mellitus, type 2): A1c reflects good control at 6.3. Currenlty at inpatient goal. Continue to Hold metformin while inpatient and give short acting insulin for carb coverage and correction factor as needed. Continue monitor blood sugar (10) Hypothyroidism: Chronic, stable continue Synthroid replacement per home regimen. (11) HTN (hypertension): Chronic, stable with some hypotension overnight. Currently antihypertensives are held. (12) DVT prophylaxis: Coumadin, Heparin drip Full code Disposition -to home likely tomorrow when INR is 3 or greater. Elizabeth Driver DO [facility] Hospitalist Updated Medication List Medication Instructions Recorded Confirmed Type acyclovir 5 % topical cream 1 applic topical DIRECTED 09/02/22 09/02/22 History atorvastatin 40 mg tablet 40 mg PO QAM 09/02/22 09/02/22 History buspirone 5 mg tablet 5 mg PO BID PRN Anxiety 09/02/22 09/02/22 History citalopram 20 mg tablet 20 mg PO DAILY 09/02/22 09/02/22 History diclofenac sodium 1 % topical gel 2 g topical BID PRN Pain 09/02/22 09/02/22 History gabapentin 100 mg capsule 100 mg PO HS 09/02/22 09/02/22 History lansoprazole 30 mg capsule,delayed 30 mg PO QAM 09/02/22 09/02/22 History release levothyroxine 75 mcg tablet 75 mcg PO QAM 09/02/22 09/02/22 History (Euthyrox) losartan 25 mg tablet 12.5 mg PO QAM 09/02/22 09/02/22 History metformin 500 mg tablet 500 mg PO QAM 09/02/22 09/02/22 History metoprolol succinate 25 mg 25 mg PO DAILY 09/02/22 09/02/22 History tablet,extended release 24 hr multivitamin 1 tab PO DAILY 09/02/22 09/02/22 History potassium chloride 20 mEq 20 meq PO DAILY 09/02/22 09/02/22 History tablet,extended release (K-Tab) spironolactone 25 mg tablet 12.5 mg PO DAILY 09/02/22 09/02/22 History tolterodine 2 mg capsule,extended 2 mg PO DAILY 09/02/22 09/02/22 History release 24 hr torsemide 20 mg tablet 20 mg PO QAM 09/02/22 09/02/22 History torsemide 20 mg tablet 20 mg PO QPM PRN Fluid Retention 09/02/22 09/02/22 History warfarin 5 mg tablet 7.5 mg PO .[id number] 09/02/22 09/02/22 History aspirin 81 mg tablet,delayed 81 mg PO DAILY #90 tabs 09/13/22 Rx release ferrous sulfate 325 mg (65 mg 325 mg PO TIDM #90 tabs 09/13/22 Rx iron) tablet,delayed release warfarin 5 mg tablet 10 mg PO DAILY #60 tabs 09/13/22 Rx Hospital Stay Data Consultations 09/02/22 15:30 ED Decision to Admit Stat 09/02/22 16:22 Consult Gastroenterology Routine 09/08/22 16:04 Consult Cardiology Routine 09/09/22 10:59 Consult Anesthesiology Routine Procedures Performed Operation Date: 09/06/22 16:45 Actual Procedures p Colonoscopy - Horace Rodrigues MD s Esophagogastroduodenoscopy - Horace Rodrigues MD Operation Date: 09/12/22 07:15 Actual Procedures p Echo Transesophageal - Arturo Edwards DO Diagnostic Imagining Performed 09/08/22 09:35 US leg [US venous doppler LE LT] Routine Pending Results Patient Have Any Pending Studies at Discharge: No Discharge Instructions Given to Patient (Per Discharging Provider) Please take all medications as instructed on discharge list below. Your new INR goal will be 3.0-3.5 with new onset mobile densities seen on your mitral valve. Per Dr. Edwards's instruction, please return to [facility] for a transesophageal echocardiogram (CHRISTO) in 5 weeks time to re-evaluate your valves. Please reduce your aspirin dose to 81mg daily to decrease your bleeding risk. You were found to be iron deficient and have been placed on iron supplementation to treat this. Further investigation into the source of this iron deficiency is ongoing, and should be continued by your primary care provider. It was a pleasure taking care of you! Please call if you have any questions or problems. You can reach a [facility] hospitalist on duty at [facility] 24 hours a day by calling [phone]. Take care of yourself. Elizabeth Driver DO [facility]
== END 2022-09-13 12:47 | disposition home or self-care (01) | DRG 812 ==
LOC: ED 13:06 → 2S 15:12 → SUATTDRO 16:21
DX: E03.9 Hypothyroidism, unspecified; Z79.890 Hormone replacement therapy; I42.8 Other cardiomyopathies; Z79.82 Long term (current) use of aspirin; R19.5 Other fecal abnormalities; K21.9 Gastro-esophageal reflux disease without esophagitis; Z86.73 Personal history of transient ischemic attack (TIA), and cerebral infarction without residual deficits; E11.9 Type 2 diabetes mellitus without complications; I08.0 Rheumatic disorders of both mitral and aortic valves; I10 Essential (primary) hypertension; R31.0 Gross hematuria; Z79.01 Long term (current) use of anticoagulants; D50.9 Iron deficiency anemia, unspecified; Z92.3 Personal history of irradiation; N39.0 Urinary tract infection, site not specified; F17.210 Nicotine dependence, cigarettes, uncomplicated; Z95.2 Presence of prosthetic heart valve; I44.7 Left bundle-branch block, unspecified; Z79.84 Long term (current) use of oral hypoglycemic drugs; I47.29 Other ventricular tachycardia; Z85.71 Personal history of Hodgkin lymphoma